=== PATIENT | female | born 1945 | race Caucasian/White ===

== ENCOUNTER 2016-10-12 16:22 | Outpatient (CLI) | payer MEDICARE, OTHER | END 2016-10-12 16:23 | disposition home or self-care (01) | DX: M50.31 Other cervical disc degeneration, high cervical region (principal); M47.892 Other spondylosis, cervical region; M50.222 Other cervical disc displacement at C5-C6 level; M51.34 Other intervertebral disc degeneration, thoracic region; M47.894 Other spondylosis, thoracic region ==

== ENCOUNTER 2016-12-15 08:00 | Outpatient (CLI) | payer MEDICARE, OTHER ==
[2016-12-16 07:44] LABS: HEMOGLOBIN A1C 0.92 g/dL
== END 2016-12-15 23:59 | disposition home or self-care (01) ==
LOC: LAB.R 08:00
PROVIDERS: ATTEND Internal Medicine
DX: E11.65 Type 2 diabetes mellitus with hyperglycemia (principal)
CPT/HCPCS: 83036

== ENCOUNTER 2017-02-23 16:07 | Emergency (ER) | payer MEDICARE, OTHER ==
[2017-02-23 17:16] LABS: EOSINOPHILS # (AUTO) 0.1 10^3/uL (0.0-0.7); EOSINOPHILS % (AUTO) 0.8 %; HCT - HEMATOCRIT 41.2 % (37.0-47.0); HGB - HEMOGLOBIN 13.5 g/dL (12.0-16.0); LYMPHOCYTES # (AUTO) 0.5 10^3/uL (1.5-3.5); MEAN CORPUSCULAR HEMOGLOBIN 29.3 pg (27.0-31.0); MEAN CORPUSCULAR HGB CONC 32.9 g/dL (32.0-36.0); MEAN PLATELET VOLUME 9.4 fL (7.9-10.8); MONOCYTES # (AUTO) 1.1 10^3/uL (0.0-1.0); MONOCYTES % (AUTO) 6.7 %; NEUTROPHILS # (AUTO) 14.9 10^3/uL (1.5-6.6); NEUTROPHILS % (AUTO) 89.5 %; RED BLOOD COUNT 4.63 10^6/uL (4.20-5.40); RED CELL DISTRIBUTION WIDTH 13.6 % (12.0-15.0); UNCORRECTED WHITE BLOOD COUNT 16.7 x10^3/uL; WHITE BLOOD COUNT 16.7 x10^3/uL (4.8-10.8)
[2017-02-23 17:28] LABS: BILIRUBIN,URINE NEGATIVE (NEGATIVE); PH,URINE 6.5 PH (5.0-7.5)
[2017-02-23 17:28] LABS: ALBUMIN/GLOBULIN RATIO 1.2 (1.0-2.2); BILIRUBIN,TOTAL 0.9 mg/dL (0.2-1.0); CALCIUM 9.5 mg/dL (8.5-10.3); POTASSIUM 4.3 mmol/L (3.5-5.0); TOTAL PROTEIN 7.2 g/dL (6.7-8.2)
[2017-02-23 17:32] LABS: UA w/ MICROSCOPIC CHARGE YES
[2017-02-23 17:36] LABS: UR CULTURE IF IND INDICATED; WBC,URINE >25 /HPF (0-5)
[2017-02-23] MEDS ORDERED: cefTRIAXone 1 GM VIAL IVP STA (18:32)
[2017-02-23] MEDS ORDERED: SODIUM CHLORIDE 0.9% 1,000 ML IV ONE (18:43)
--- NOTE | 2017-02-23 18:45 | ED Physician Documentation ---
History of Present Illness - Stated complaint Stated Complaint: FEMALE - Chief complaint Chief Complaint: Ext Problem - History obtained from History obtained from: Patient, Friend - History of Present Illness Timing: Today Pain level max: 4 Pain level now: 1 Improved by: nothing Worsened by: urination. - Additonal information Additional information: Patient is a 71-year-old female who presents to the emergency department with lower abdominal/pelvic pain for the past several days. States had a fever today. Was not feeling well. Attempted to see her PCP and was referred here. States also feeling "hip pain" but points to the lower abdomen. Review of Systems Ten Systems: 10 systems reviewed and negative Constitutional: reports: Fever (subjective) Ears: denies: Ear pain Nose: denies: Rhinorrhea / runny nose, Congestion Throat: denies: Sore throat Cardiac: denies: Chest pain / pressure Respiratory: denies: Cough GI: denies: Abdominal Pain, Nausea, Vomiting Skin: denies: Rash Musculoskeletal: denies: Neck pain, Back pain Neurologic: denies: Headache PD PAST MEDICAL HISTORY - Past Medical History Past Medical History: Yes Respiratory: CPAP use Neuro: Parkinson's Musculoskeletal: Osteoarthritis, Chronic back pain - Past Surgical History Ortho: Spine surgery - Present Medications Home Medications: Ambulatory Orders Medication Instructions Recorded Confirmed Aspirin 81 mg PO HS 05/09/13 06/16/16 Calcium [Calcio Onelia] 1,000 mg PO DAILY 05/09/13 06/16/16 Cholecalciferol (Vitamin D3) 2,000 unit PO DAILY 05/09/13 06/16/16 [Vitamin D-3] Duloxetine HCl [Cymbalta] 30 mg PO DAILY 05/09/13 06/16/16 Estradiol 1 mg PO DAILY 05/09/13 06/16/16 Insulin Glargine [Lantus Solostar] 44 units SUBCUT QDBREAKFAST 05/09/13 06/16/16 Medroxyprogesterone Acetate 2.5 mg PO DAILY 05/09/13 06/16/16 Multivitamin [Animal Chews] 1 each PO DAILY 05/09/13 06/16/16 [place] 3/Dha/Epa/Other Om3/D3 200 ml PO BID 05/09/13 06/16/16 [[place]-3 + Vitamin D3 Liquid] Pravastatin Sodium [Pravachol] 40 mg PO DAILY 05/09/13 06/16/16 Sitagliptin Phosphate [Januvia] 100 mg PO DAILY 05/09/13 06/16/16 Diclofenac Sodium [Voltaren] 100 gm TP DAILY 06/16/16 06/16/16 Meloxicam 7.5 mg PO DAILY 06/16/16 06/16/16 Sulfamethox/Trimeth 800/160 1 each PO BID #14 tablet 02/23/17 [Bactrim Ds 800/160] - Allergies Allergies/Adverse Reactions: Allergies Allergy/AdvReac Type Severity Reaction Status Date / Time No Known Drug Allergies Allergy Verified 02/23/17 16:32 - Social History Does the pt smoke?: No Smoking Status: Never smoker Does the pt drink ETOH?: No Does the pt have substance abuse?: No - Immunizations Immunizations are current?: Yes PD ED PE NORMAL - Vitals Vital signs reviewed: Yes - General General: Alert and oriented X 3, No acute distress, Well developed/nourished - HEENT HEENT: PERRL, Moist mucous membranes - Neck Neck: Supple, no meningeal sign - Cardiac Cardiac: RRR, Strong equal pulses - Respiratory Respiratory: No respiratory distress, Clear bilaterally - Abdomen Abdomen: Soft, Non distended, Other (Mild suprapubic tenderness palpation without peritoneal signs.) - Back Back: No CVA TTP, No spinal TTP - Derm Derm: Warm and dry, No rash - Extremities Extremities: No edema - Neuro Neuro: Alert and oriented X 3, No sensory deficit - Psych Psych: Normal mood, Normal affect Results - Vitals Vitals: Oxygen O2 Source Room air - Labs Labs: Microbiology 02/23/17 16:17 Urine Culture - Final Urine,Clean Catch Staphylococcus Epidermidis Laboratory Tests 02/23/17 02/23/17 02/23/17 16:17 17:09 17:09 WBC 16.7 H RBC 4.63 Hgb 13.5 Hct 41.2 MCV 89.0 MCH 29.3 MCHC 32.9 RDW 13.6 Plt Count 224 MPV 9.4 Neut # 14.9 H Lymph # 0.5 L [place] # 1.1 H Eos # 0.1 Baso # 0.0 Absolute Nucleated RBC 0.01 Nucleated RBCs 0.0 Sodium 135 Potassium 4.3 Chloride 104 Carbon Dioxide 23 Anion Gap 8.0 BUN 28 H Creatinine 1.0 Estimated GFR (MDRD) 54 L Glucose 243 H Lactic Acid Calcium 9.5 Total Bilirubin 0.9 AST 22 ALT 18 Alkaline Phosphatase 64 Total Protein 7.2 Albumin 3.9 Globulin 3.3 Albumin/Globulin Ratio 1.2 Lipase 29 Urine Color YELLOW Urine Clarity CLOUDY Urine pH 6.5 Ur Specific [place] 1.020 Urine Protein TRACE Urine Glucose (UA) NEGATIVE Urine Ketones NEGATIVE Urine Occult Blood SMALL H Urine Nitrite POSITIVE H Urine Bilirubin NEGATIVE Urine Urobilinogen 0.2 (NORMAL) Ur Leukocyte Esterase MODERATE H Urine RBC 6-10 H Urine WBC >25 H Ur Squamous Epith Cells NONE SEEN Urine Bacteria Few Ur Microscopic Review INDICATED Urine Culture Comments INDICATED 02/23/17 17:09 WBC RBC Hgb Hct MCV MCH MCHC RDW Plt Count MPV Neut # Lymph # [place] # Eos # Baso # Absolute Nucleated RBC Nucleated RBCs Sodium Potassium Chloride Carbon Dioxide Anion Gap BUN Creatinine Estimated GFR (MDRD) Glucose Lactic Acid 1.2 Calcium Total Bilirubin AST ALT Alkaline Phosphatase Total Protein Albumin Globulin Albumin/Globulin Ratio Lipase Urine Color Urine Clarity Urine pH Ur Specific [place] Urine Protein Urine Glucose (UA) Urine Ketones Urine Occult Blood Urine Nitrite Urine Bilirubin Urine Urobilinogen Ur Leukocyte Esterase Urine RBC Urine WBC Ur Squamous Epith Cells Urine Bacteria Ur Microscopic Review Urine Culture Comments PD MEDICAL DECISION MAKING - ED course Complexity details: reviewed results, re-evaluated patient, considered differential, d/w patient ED course: Patient is a 71-year-old female who presents to the emergency department with what appears to be a UTI. Afebrile here. Lactate normal. No evidence of sepsis. Given IV antibiotics and will place on oral antibiotics for home. Tolerating p.o. without difficulty. States that she feels very well. Feels better after IV fluids. Abdomen is soft, nontender nondistended on serial exam. No CVA tenderness. No vomiting. Patient counseled regarding signs and symptoms for which I believe and urgent re-evaluation would be necessary. Patient with good understanding of and agreement to plan and is comfortable going home at this time This document was made in part using voice recognition software. While efforts are made to proofread this document, sound alike and grammatical errors may occur. Departure - Departure Disposition: Home, Self Care Clinical Impression: UTI (urinary tract infection) Qualifiers: Urinary tract infection type: acute cystitis Hematuria presence: without hematuria Qualified Code(s): N30.00 - Acute cystitis without hematuria Condition: Good Instructions: ED UTI Cystitis Female Follow-Up: Homero Saavedra MD [Primary Care Provider] - Within 1 week Prescriptions: Sulfamethox/Trimeth 800/160 [Bactrim Ds 800/160] 1 each PO BID #14 tablet Comments: Take all antibiotics until gone. Return if you worsen. Discharge Date/Time: 02/23/17 20:17
[2017-02-23] MEDS ORDERED: cefTRIAXone 1 GM VIAL ONE (19:10)
[2017-02-23 20:20] VITALS: BP 102/53
== END 2017-02-23 20:17 | disposition home or self-care (01) ==
LOC: ED 16:07
DX: N30.00 Acute cystitis without hematuria (principal); G20 Parkinson's disease
CPT/HCPCS: 36415; 80053; 81001; 81003; 83605; 83690; 85025; 87077; 87086; 96374; 99283; 99284

== ENCOUNTER 2017-03-14 14:50 | Outpatient (CLI) | payer MEDICARE, OTHER | END 2017-03-14 14:51 | disposition home or self-care (01) | LOC: LAB.R 14:50 | PROVIDERS: ATTEND Internal Medicine | DX: N30.00 Acute cystitis without hematuria (principal) | CPT/HCPCS: 87086 ==

== ENCOUNTER 2017-03-15 22:39 | Emergency (ER) | payer MEDICARE, OTHER ==
[2017-03-15 22:48] VITALS: BP 188/99
[2017-03-15 23:02] LABS: BASOPHILS # (AUTO) 0.1 10^3/uL (0.0-0.1); EOSINOPHILS # (AUTO) 0.4 10^3/uL (0.0-0.7); EOSINOPHILS % (AUTO) 4.8 %; HCT - HEMATOCRIT 42.1 % (37.0-47.0); LYMPHOCYTES # (AUTO) 2.5 10^3/uL (1.5-3.5); LYMPHOCYTES % (AUTO) 34.6 %; MEAN CORPUSCULAR HEMOGLOBIN 29.4 pg (27.0-31.0); MEAN CORPUSCULAR HGB CONC 33.3 g/dL (32.0-36.0); MEAN CORPUSCULAR VOLUME 88.2 fL (81.0-99.0); MONOCYTES # (AUTO) 0.7 10^3/uL (0.0-1.0); MONOCYTES % (AUTO) 9.8 %; NEUTROPHILS # (AUTO) 3.7 10^3/uL (1.5-6.6); NEUTROPHILS % (AUTO) 49.8 %; RED BLOOD COUNT 4.77 10^6/uL (4.20-5.40); RED CELL DISTRIBUTION WIDTH 13.9 % (12.0-15.0); UNCORRECTED WHITE BLOOD COUNT 7.3 x10^3/uL; WHITE BLOOD COUNT 7.3 x10^3/uL (4.8-10.8)
[2017-03-15 23:11] LABS: ALBUMIN/GLOBULIN RATIO 1.3 (1.0-2.2); BILIRUBIN,TOTAL 0.2 mg/dL (0.2-1.0); CALCIUM 9.7 mg/dL (8.5-10.3); CREATININE 0.7 mg/dL (0.4-1.0); POTASSIUM 3.8 mmol/L (3.5-5.0); TOTAL PROTEIN 7.7 g/dL (6.7-8.2)
[2017-03-15 23:16] LABS: BILIRUBIN,URINE NEGATIVE (NEGATIVE)
[2017-03-15 23:43] LABS: UA w/ MICROSCOPIC CHARGE YES
[2017-03-15 23:44] LABS: UR CULTURE IF IND NOT INDICATED
--- NOTE | 2017-03-15 23:56 | ED Physician Documentation ---
PD HPI FEMALE - Stated complaint Stated Complaint: FEMALE - Chief complaint Chief Complaint: UTI - History obtained from History obtained from: Patient - History of Present Illness Timing - onset: Yesterday Timing - details: Gradual onset, Still present Associated symptoms: Vaginal pain, Dysuria. No: Fever, Chest/shoulder pain Similar symptoms before: Work up / diagnostics, Treatment Recently seen: Clinic - Additional information Additional information: Patient is a 71 year old female with a history of diabetes who is presenting to the emergency department for dysuria. Patient states that she was diagnosed with a staff uti in february. patient states that she has been on mulitple antibiotics but still has symptoms. Patient states that she saw her doctor on tuesday and sent a urine culture but is sure that she still has a urinary tract infection since it vargas when she urinates. Review of Systems Constitutional: denies: Fever, Chills Eyes: denies: Decreased vision, Photophobia Ears: reports: Reviewed and negative Nose: reports: Reviewed and negative Throat: reports: Reviewed and negative Cardiac: denies: Chest pain / pressure Respiratory: denies: Dyspnea, Cough GI: reports: Abdominal Pain. denies: Nausea, Vomiting, Constipation, Diarrhea : reports: Dysuria, Frequency, Hematuria. denies: Discharge, Vaginal bleeding Skin: denies: Rash, Lesions Musculoskeletal: denies: Back pain Neurologic: denies: Generalized weakness, Focal weakness, Confused, Altered mental status Immunocompromised: denies: Immunocompromised PD PAST MEDICAL HISTORY - Past Medical History Respiratory: CPAP use Neuro: Parkinson's Musculoskeletal: Osteoarthritis, Chronic back pain - Past Surgical History Ortho: Spine surgery - Present Medications Home Medications: Ambulatory Orders Medication Instructions Recorded Confirmed Aspirin 81 mg PO HS 05/09/13 06/16/16 Calcium [Calcio Onelia] 1,000 mg PO DAILY 05/09/13 06/16/16 Cholecalciferol (Vitamin D3) 2,000 unit PO DAILY 05/09/13 06/16/16 [Vitamin D-3] Duloxetine HCl [Cymbalta] 30 mg PO DAILY 05/09/13 06/16/16 Estradiol 1 mg PO DAILY 05/09/13 06/16/16 Insulin Glargine [Lantus Solostar] 44 units SUBCUT QDBREAKFAST 05/09/13 06/16/16 Medroxyprogesterone Acetate 2.5 mg PO DAILY 05/09/13 06/16/16 Multivitamin [Animal Chews] 1 each PO DAILY 05/09/13 06/16/16 [place] 3/Dha/Epa/Other Om3/D3 200 ml PO BID 05/09/13 06/16/16 [[place]-3 + Vitamin D3 Liquid] Pravastatin Sodium [Pravachol] 40 mg PO DAILY 05/09/13 06/16/16 Sitagliptin Phosphate [Januvia] 100 mg PO DAILY 05/09/13 06/16/16 Diclofenac Sodium [Voltaren] 100 gm TP DAILY 06/16/16 06/16/16 Meloxicam 7.5 mg PO DAILY 06/16/16 06/16/16 Sulfamethox/Trimeth 800/160 1 each PO BID #14 tablet 02/23/17 [Bactrim Ds 800/160] - Allergies Allergies/Adverse Reactions: Allergies Allergy/AdvReac Type Severity Reaction Status Date / Time No Known Drug Allergies Allergy Verified 03/15/17 22:48 - Social History Does the pt smoke?: No Smoking Status: Never smoker Does the pt drink ETOH?: No Does the pt have substance abuse?: No - Immunizations Immunizations are current?: Yes PD ED PE NORMAL - Vitals Vital signs reviewed: Yes - General General: Alert and oriented X 3, No acute distress - HEENT HEENT: Atraumatic, PERRL - Neck Neck: Supple, no meningeal sign - Cardiac Cardiac: RRR, No murmur - Respiratory Respiratory: No respiratory distress - Abdomen Abdomen: Soft, Non tender, Non distended - Female Female : Pt declined - Derm Derm: Normal color, Warm and dry, No rash - Extremities Extremities: No deformity - Neuro Neuro: Alert and oriented X 3, No motor deficit, No sensory deficit, Normal speech - Psych Psych: Normal mood Results - Vitals Vitals: Vital Signs - 24 hr 03/15/17 22:45 Temperature 36.3 C L Heart Rate 74 Respiratory 16 Rate Blood Pressure 188/99 H O2 Saturation 97 Oxygen O2 Source Room air - Labs Labs: Laboratory Tests 03/15/17 03/15/17 03/15/17 22:53 22:53 23:03 WBC 7.3 RBC 4.77 Hgb 14.0 Hct 42.1 MCV 88.2 MCH 29.4 MCHC 33.3 RDW 13.9 Plt Count 249 MPV 9.0 Neut # 3.7 Lymph # 2.5 [place] # 0.7 Eos # 0.4 Baso # 0.1 Absolute Nucleated RBC 0.00 Nucleated RBC % 0.0 Sodium 139 Potassium 3.8 Chloride 105 Carbon Dioxide 25 Anion Gap 9.0 BUN 21 H Creatinine 0.7 Estimated GFR (MDRD) 82 L Glucose 122 H Calcium 9.7 Total Bilirubin 0.2 AST 24 ALT 22 Alkaline Phosphatase 63 Total Protein 7.7 Albumin 4.3 Globulin 3.4 Albumin/Globulin Ratio 1.3 Lipase 36 Urine Color YELLOW Urine Clarity CLEAR Urine pH 6.0 Ur Specific [place] 1.025 Urine Protein NEGATIVE Urine Glucose (UA) NEGATIVE Urine Ketones NEGATIVE Urine Occult Blood MODERATE H Urine Nitrite NEGATIVE Urine Bilirubin NEGATIVE Urine Urobilinogen 0.2 (NORMAL) Ur Leukocyte Esterase NEGATIVE Urine RBC 11-25 H Urine WBC 4-5 Ur Squamous Epith Cells FEW Squamous Urine Bacteria None Seen Ur Microscopic Review INDICATED Urine Culture Comments NOT INDICATED PD MEDICAL DECISION MAKING - ED course Complexity details: reviewed old records, reviewed results, re-evaluated patient , considered differential, d/w patient ED course: Patient was seen and examined at bedside. Patient was well appearing. labs were drawn and urine was collected. Previous results were reviewed. the uti from february was staph epidermis (contaminate) but was susceptible to multiple medications that the patient had taken. patient's culture from tuesday showed no growth. patient's urinalysis showed no bacteria and labs were within normal limits. Patient refused a pelvic exam at this time and stated that she would follow up with her doctor. Patient required no further work up and was stable for discharge with outpatient follow up. Departure - Departure Disposition: 01 Home, Self Care Clinical Impression: Vaginitis Condition: Good Instructions: ED Vaginitis Atrophic Follow-Up: Homero Saavedra MD [Primary Care Provider] - As Needed Comments: Your diagnostics today were within normal limits. there was no sign of infection, and your culture from yesterday showed no growth. It is unlikely secondary to a urinary tract infection and could be caused by vaginitis. You should follow up with your doctor for further evaluation and care if your symptoms persist. You may return to the emergency department at any time for new, worsening or uncontrollable symptoms.
== END 2017-03-16 00:05 | disposition home or self-care (01) ==
LOC: ED 22:39
DX: N76.0 Acute vaginitis (principal); E11.9 Type 2 diabetes mellitus without complications; G20 Parkinson's disease; Z79.82 Long term (current) use of aspirin; Z79.4 Long term (current) use of insulin
CPT/HCPCS: 36415; 80053; 81001; 81003; 83690; 85025; 87086; 99283

== ENCOUNTER 2017-09-23 12:50 | Outpatient (CLI) | payer MEDICARE, OTHER ==
[2017-09-23 14:02] LABS: HB2 TOTAL 15.7 g/dL; HEMOGLOBIN A1C 0.83 g/dL
== END 2017-09-23 12:51 | disposition home or self-care (01) ==
LOC: LAB 12:50
PROVIDERS: ATTEND Internal Medicine
DX: E11.9 Type 2 diabetes mellitus without complications (principal)
CPT/HCPCS: 36415; 83036

== ENCOUNTER 2017-11-25 15:27 | Outpatient (CLI) | payer MEDICARE, OTHER ==
--- NOTE | 2017-11-25 17:53 | MRI Report ---
Procedure Date: 11/25/2017 Accession Number: [id number] / [id number] Procedure: MRI - Brain W/O CPT Code: FULL RESULT: EXAM: MRI BRAIN WITHOUT CONTRAST EXAM DATE: 11/25/2017 04:05 PM. CLINICAL HISTORY: 72-year-old female, right leg weakness COMPARISON: Carotid ultrasound 10/02/2009. TECHNIQUE: Multiplanar, multisequence T1-weighted and fluid-sensitive MR sequences of the brain were performed. Sequences optimized for routine evaluation. Other: None. IV Contrast: None. FINDINGS: Brain Volume: Normal for age. Parenchyma/Dura: No mass, acute infarct or hemorrhage. Scattered T2/FLAIR hyperintense periventricular, deep, and subcortical white matter lesions within cerebral hemispheres bilaterally. No parenchymal foci susceptibility artifact. Ventricles/Cisterns: No hydrocephalus. No abnormal extra-axial fluid collection or hemorrhage. Orbits: Symmetric and unremarkable. Sella [place]: The pituitary gland, cavernous sinuses, suprasellar cistern and optic chiasm are unremarkable. IAC: Symmetric and unremarkable. Vasculature: Normal signal flow void is seen in the major arterial structures at the skull base. Sinuses: No acute appearing sinus disease. Bones: No focal pathologic appearing marrow signal changes. Other: Mild likely degenerative pseudo-pannus arising from the atlantodental joint (series 301 image 12), mildly narrowing the craniocervical junction. IMPRESSION: 1. No MRI evidence of acute intracranial abnormality. Specifically, no evidence of acute or subacute infarct, acute intracranial hemorrhage, mass, midline shift, or hydrocephalus. 2. Scattered white matter T2/FLAIR hyperintensities, nonspecific, and can be seen with the entire gamut of white matter conditions, including migraine headaches and as sequela of chronic microangiopathy. [facility]
== END 2017-11-25 15:28 | disposition home or self-care (01) ==
LOC: DI 15:27
PROVIDERS: ATTEND Internal Medicine
DX: I63.9 Cerebral infarction, unspecified (principal)
CPT/HCPCS: 70551

== ENCOUNTER 2018-02-09 10:30 | Outpatient (CLI) | payer MEDICARE, OTHER | END 2018-02-09 10:31 | LOC: LAB.R 10:30 | PROVIDERS: ATTEND Internal Medicine | DX: Z01.818 Encounter for other preprocedural examination (principal); R29.898 Other symptoms and signs involving the musculoskeletal system | CPT/HCPCS: 87640 ==

== ENCOUNTER 2018-02-09 10:51 | Outpatient (CLI) | payer MEDICARE, OTHER ==
[2018-02-09 11:20] LABS: BASOPHILS % (AUTO) 0.5 %; EOSINOPHILS # (AUTO) 0.3 10^3/uL (0.0-0.7); EOSINOPHILS % (AUTO) 4.7 %; HGB - HEMOGLOBIN 14.5 g/dL (12.0-16.0); LYMPHOCYTES # (AUTO) 1.5 10^3/uL (1.5-3.5); LYMPHOCYTES % (AUTO) 23.4 %; MEAN CORPUSCULAR HEMOGLOBIN 30.5 pg (27.0-31.0); MEAN CORPUSCULAR HGB CONC 34.5 g/dL (32.0-36.0); MEAN CORPUSCULAR VOLUME 88.5 fL (81.0-99.0); MEAN PLATELET VOLUME 9.2 fL (7.9-10.8); MONOCYTES # (AUTO) 0.5 10^3/uL (0.0-1.0); MONOCYTES % (AUTO) 7.8 %; NEUTROPHILS # (AUTO) 4.1 10^3/uL (1.5-6.6); NEUTROPHILS % (AUTO) 63.6 %; PLT - PLATELET COUNT 218 10^3/uL (130-450); RED BLOOD COUNT 4.76 10^6/uL (4.20-5.40); RED CELL DISTRIBUTION WIDTH 13.3 % (12.0-15.0); WHITE BLOOD COUNT 6.4 x10^3/uL (4.8-10.8)
[2018-02-09 11:36] LABS: ALBUMIN 4.1 g/dL (3.2-5.5); ALBUMIN/GLOBULIN RATIO 1.4 (1.0-2.2); BILIRUBIN,TOTAL 0.8 mg/dL (0.2-1.0); CALCIUM 9.3 mg/dL (8.5-10.3); CREATININE 0.7 mg/dL (0.4-1.0); TOTAL PROTEIN 7.1 g/dL (6.7-8.2)
[2018-02-09 11:44] LABS: HB2 TOTAL 15.3 g/dL; HEMOGLOBIN A1C 0.92 g/dL; HEMOGLOBIN A1C % 7.7 % (4.6-6.2)
== END 2018-02-09 10:52 | disposition home or self-care (01) ==
LOC: LAB 10:51
PROVIDERS: ATTEND Internal Medicine
DX: Z01.818 Encounter for other preprocedural examination (principal); E11.9 Type 2 diabetes mellitus without complications
CPT/HCPCS: 36415; 80053; 83036; 85025

== ENCOUNTER 2018-03-02 10:57 | Outpatient (CLI) | payer MEDICARE, OTHER ==
--- NOTE | 2018-03-02 16:44 | XRAY Report ---
Reason: BACK PAIN Procedure Date: 03/02/2018 Accession Number: [id number] / [id number] Procedure: XR - Thoracic Spine 3 View CPT Code: FULL RESULT: EXAM: THORACIC SPINE RADIOGRAPHY EXAM DATE: 03/02/2018 11:10 AM. CLINICAL HISTORY: Back pain. COMPARISON: XR THORACIC SPINE 3 VIEWS 03/01/2007 4:52 PM. THORACIC SPINE W/O 10/12/2016 5:19 PM. XR CHEST PA AND LAT 08/01/2012 7:53 PM. TECHNIQUE: 2 views. FINDINGS: Alignment: Mild upper thoracic kyphosis due to interval mild, less than 25% height loss, anterior wedge compression around T8, new compared to 2006. No listhesis. Bones: No other fractures or bone lesions. Configuration of ribs is unchanged. Disks: Multilevel loss of disk space height is most pronounced at T6-T10. Soft Tissues: Normal. The visualized lungs and cardiomediastinal silhouette are normal. IMPRESSION: Mild anterior wedge compression fracture of T8, similar to the MRI 2016 and new compared to 2006. [facility]
== END 2018-03-02 10:58 | disposition home or self-care (01) ==
LOC: DI 10:57
PROVIDERS: ATTEND Internal Medicine
DX: M54.9 Dorsalgia, unspecified (principal); M48.54XA Collapsed vertebra, not elsewhere classified, thoracic region, initial encounter for fracture
CPT/HCPCS: 72072

== ENCOUNTER 2018-03-24 11:52 | Outpatient (CLI) | payer MEDICARE, OTHER | END 2018-03-24 11:53 | disposition home or self-care (01) | LOC: LAB 11:52 | PROVIDERS: ATTEND Internal Medicine | DX: E11.9 Type 2 diabetes mellitus without complications (principal) ==

== ENCOUNTER 2018-03-24 15:50 | Outpatient (CLI) | payer MEDICARE, OTHER ==
[2018-03-24 16:58] LABS: HB2 TOTAL 14.5 g/dL; HEMOGLOBIN A1C 0.89 g/dL; HEMOGLOBIN A1C % 7.8 % (4.6-6.2)
== END 2018-03-24 15:51 | disposition home or self-care (01) ==
LOC: LAB 15:50
PROVIDERS: ATTEND Internal Medicine
DX: E11.9 Type 2 diabetes mellitus without complications (principal)
CPT/HCPCS: 36415; 83036

== ENCOUNTER 2018-03-31 10:10 | Outpatient (CLI) | payer MEDICARE, OTHER ==
[2018-03-31 10:34] LABS: BASOPHILS # (AUTO) 0.1 10^3/uL (0.0-0.1); BASOPHILS % (AUTO) 1.1 %; EOSINOPHILS # (AUTO) 0.4 10^3/uL (0.0-0.7); EOSINOPHILS % (AUTO) 7.9 %; LYMPHOCYTES # (AUTO) 1.7 10^3/uL (1.5-3.5); LYMPHOCYTES % (AUTO) 32.5 %; MEAN CORPUSCULAR HEMOGLOBIN 30.8 pg (27.0-31.0); MEAN CORPUSCULAR HGB CONC 34.5 g/dL (32.0-36.0); MEAN CORPUSCULAR VOLUME 89.3 fL (81.0-99.0); MEAN PLATELET VOLUME 9.2 fL (7.9-10.8); MONOCYTES # (AUTO) 0.5 10^3/uL (0.0-1.0); MONOCYTES % (AUTO) 9.6 %; NEUTROPHILS # (AUTO) 2.5 10^3/uL (1.5-6.6); NEUTROPHILS % (AUTO) 48.9 %; PLT - PLATELET COUNT 202 10^3/uL (130-450); RED BLOOD COUNT 4.55 10^6/uL (4.20-5.40); RED CELL DISTRIBUTION WIDTH 13.9 % (12.0-15.0); WHITE BLOOD COUNT 5.1 x10^3/uL (4.8-10.8)
[2018-03-31 10:39] LABS: CALCIUM 9.5 mg/dL (8.5-10.3); CREATININE 0.6 mg/dL (0.4-1.0)
== END 2018-03-31 10:11 | disposition home or self-care (01) ==
LOC: LAB 10:10
PROVIDERS: ATTEND Internal Medicine
DX: Z01.818 Encounter for other preprocedural examination (principal)
CPT/HCPCS: 36415; 80048; 85025

== ENCOUNTER 2018-08-30 13:24 | Outpatient (CLI) | payer MEDICARE, OTHER ==
--- NOTE | 2018-08-31 11:08 | MRI Report ---
Reason: CHRONIC NILATERAL LOW BACK PAIN,TROCHANTERIC BURSI Procedure Date: 08/30/2018 Accession Number: [id number] / [id number] Procedure: MRI - Lumbar Spine W/O CPT Code: FULL RESULT: EXAM: MRI LUMBAR SPINE WITHOUT CONTRAST EXAM DATE: 08/30/2018 01:35 PM. CLINICAL HISTORY: Chronic bilateral low back pain, trochanteric bursitis. COMPARISON: L-SPINE 04/02/2008 10:55 AM. TECHNIQUE: Multiplanar, multisequence T1-weighted and fluid-sensitive sequences of the lumbar spine from T12 to S1 without contrast. Other: None. FINDINGS: Spinal Canal: The conus terminates at L1-L2. The conus medullaris and cauda equina are unremarkable. Alignment: There is a 5 mm grade 1 retrolisthesis at L3-L4. There is exaggeration of the lumbar lordosis at L3-L4. Bone Marrow: Five xqe-bby-czahnis lumbar vertebral bodies are assumed. L4 to S1 anterior fusion. L3 to S1 posterior fusion. The L4-S1 vertebral bodies have bony bridging consistent with successful fusion. Laminectomies from L3-L4 to L5-S1. Disk Levels/Facets: T12-L1: Unremarkable. L1-L2: Mild facet joint degeneration. Minimal canal and foraminal narrowing. L2-L3: There is a broad-based posterior disk bulge with moderate facet osteoarthritis causing mild canal and minimal foraminal narrowing. L3-L4: Mild canal narrowing. Mild left and right foraminal narrowing. L4-L5: L4-L5 vertebral bodies are fused. Mild bilateral foraminal narrowing. L5-S1: Fused vertebral bodies. Mild bilateral foraminal narrowing. The foramina are difficult to visualize due to artifact from the screws. Musculature: Normal. No edema or fatty atrophy. Other: Posterior seroma from L3-L4 to L5-S1. The seroma measures 3.3 x 6.1 x 1.8 cm. IMPRESSION: 1. Prior L3 to S1 posterior fusion with laminectomies from L3-L4 to L5-S1. Seroma from L3-L4 to L5-S1. 2. 5 mm retrolisthesis at L3-L4. 3. The spinal canal remains patent from L3-L4 to L5-S1 secondary to the laminectomies. The foramina are difficult to visualize due to the artifact from the fusion screws. There is mild foraminal narrowing at L3-L4. The L4-L5 and L5-S1 foramina appear patent. 4. Successful fusion of the vertebral bodies from L4 to S1. The L4-L5 anterolisthesis visible on the prior CT has been corrected. The disk is still visible at L3-L4. Comment: The following findings are so common in adults without low back pain that while we report their presence, they must be interpreted with caution and in the context of the clinical situation. (Reference Feliciak et al, Spine 2001) Prevalence of findings in patients without low back pain: Disk degeneration (any evidence): 92% Disk desiccation/T2 signal loss: 83% Disk height loss: 56% Disk bulge: 64% Disk protrusion: 32% Annular tear/high intensity zone: 38% [facility]
--- NOTE | 2018-08-31 11:29 | MRI Report ---
Reason: CHRONIC NILATERAL LOW BACK PAIN,TROCHANTERIC BURSI Procedure Date: 08/30/2018 Accession Number: [id number] / [id number] Procedure: MRI - Hip RT W/O CPT Code: FULL RESULT: EXAM: RIGHT HIP MRI WITHOUT CONTRAST EXAM DATE: 08/30/2018 03:02 PM. CLINICAL HISTORY: Chronic bilateral low back pain, trochanteric bursitis. COMPARISON: BONE 3-PHASE 07/11/2018 11:31 AM. TECHNIQUE: Multiplanar, multisequence T1-weighted and fluid-sensitive, small kiwzr-nc-vtqt sequences of the hip and large vfznc-il-hfuv sequences of the pelvis without contrast. Other: None. FINDINGS: Bones: There is artifact from the right hip prosthesis. Marrow signal intensity is difficult to gauge due to the artifact. There are no visible fractures or foci of abnormal marrow signal in the remainder of the bony pelvis. Right Hip: Right hip prosthesis. Marrow signal cannot be accurately ascertained due to the artifact. Other Joints: Moderate left hip osteoarthritis. Posterior fusion of the lumbar spine. Musculature: Fatty atrophy of the obturator and internus and externus. Remaining muscles appear unremarkable. Pelvic Cavity: Multiple uterine fibroids. The pelvic viscera partially obscured by artifact. The bladder appears grossly unremarkable. Other: The visualized sciatic nerves are unremarkable. Minimally increased fluid signal over the lateral aspect of the greater trochanter may indicate mild trochanteric bursitis. The subcutaneous tissues are unremarkable. IMPRESSION: 1. Possible mild right trochanteric bursitis. 2. Artifact from the right hip prosthesis obscures the periprosthetic bone. 3. There are multiple uterine fibroids. 4. Moderate left hip osteoarthritis 5. Fusion of the lumbar spine. [facility] MUSCULOSKELETAL RADIOLOGY SECTION
--- NOTE | 2018-08-31 11:42 | MRI Report ---
Reason: CHRONIC NILATERAL LOW BACK PAIN,TROCHANTERIC BURSI Procedure Date: 08/30/2018 Accession Number: [id number] / [id number] Procedure: MRI - Hip LT W/O CPT Code: FULL RESULT: EXAM: LEFT HIP MRI WITHOUT CONTRAST EXAM DATE: 08/30/2018 02:59 PM. CLINICAL HISTORY: Chronic bilateral low back pain and arthritis. Right hip prosthesis. COMPARISON: HIP RT W/O 08/30/2018 1:59 PM. TECHNIQUE: Multiplanar, multisequence T1-weighted and fluid-sensitive, small obfci-sz-tkvq sequences of the hip and large iaxnd-uw-prck sequences of the pelvis without contrast. Other: None. FINDINGS: Please see accompanying MRI of the right hip for comments regarding the soft tissues of the pelvis, musculature, right hip and lumbar spine. Prior lumbar spine fusion and right hip prosthesis. Left Hip: No acetabular retroversion. Femoral head/neck offset is within normal limits. Moderate size joint effusion. There is subchondral cyst formation in the anterosuperior acetabulum with adjacent hyaline cartilage thinning. Fluid signal tracks between the anterosuperior labrum and acetabulum consistent with a small anterosuperior labral tear. The remainder of the labrum appears unremarkable. The hyaline cartilage in the remainder of the left hip also appears slightly eroded. There is fluid signal overlying the lateral aspect of the greater trochanter consistent with trochanteric bursitis. IMPRESSION: 1. Left trochanteric bursitis. 2. Mild left hip osteoarthritis with a small anterosuperior labral tear. [facility] MUSCULOSKELETAL RADIOLOGY SECTION
== END 2018-08-30 13:25 | disposition home or self-care (01) ==
LOC: DI 13:24
PROVIDERS: ATTEND Orthopaedic Surgery Orthopaedic Surgery of the Spine
DX: M70.61 Trochanteric bursitis, right hip (principal); M70.62 Trochanteric bursitis, left hip; M16.12 Unilateral primary osteoarthritis, left hip; S73.192A Other sprain of left hip, initial encounter; M47.816 Spondylosis without myelopathy or radiculopathy, lumbar region; M48.061 Spinal stenosis, lumbar region without neurogenic claudication; Z98.1 Arthrodesis status; S76.019A Strain of muscle, fascia and tendon of unspecified hip, initial encounter; Z96.641 Presence of right artificial hip joint; D25.9 Leiomyoma of uterus, unspecified
CPT/HCPCS: 72148

== ENCOUNTER 2019-01-30 14:45 | Outpatient (CLI) | payer MEDICARE, OTHER ==
[2019-01-30 16:38] LABS: BILIRUBIN,URINE NEGATIVE (NEGATIVE); GLUCOSE, URINE (UA) 100 mg/dL (NEGATIVE); KETONES,URINE (UA) NEGATIVE (NEGATIVE); LEUKOCYTE ESTERASE, URINE NEGATIVE (NEGATIVE); NITRITE,URINE NEGATIVE (NEGATIVE); OCCULT BLOOD,URINE SMALL (NEGATIVE); PROTEIN,URINE TRACE mg/dL (NEGATIVE); UROBILINOGEN,URINE 0.2 (NORMAL) E.U./dL (NORMAL)
[2019-01-30 16:39] LABS: CLARITY,URINE HAZY (CLEAR)
[2019-01-30 16:51] LABS: BACTERIA,URINE None Seen /HPF (None Seen); SQUAMOUS EPITHELIAL CELL,UR FEW Squamous (<= Few)
== END 2019-01-30 23:59 | disposition home or self-care (01) ==
LOC: LAB.R 14:45
PROVIDERS: ATTEND Nurse Practitioner
DX: R30.0 Dysuria (principal)
CPT/HCPCS: 81001; 81003; 87086

== ENCOUNTER 2019-02-01 13:50 | Outpatient (CLI) | payer MEDICARE, OTHER ==
[2019-02-01 14:17] LABS: BILIRUBIN,URINE NEGATIVE (NEGATIVE); GLUCOSE, URINE (UA) NEGATIVE (NEGATIVE); KETONES,URINE (UA) TRACE mg/dL (NEGATIVE); LEUKOCYTE ESTERASE, URINE TRACE (NEGATIVE); NITRITE,URINE NEGATIVE (NEGATIVE); OCCULT BLOOD,URINE SMALL (NEGATIVE); PROTEIN,URINE TRACE mg/dL (NEGATIVE); UROBILINOGEN,URINE 0.2 (NORMAL) E.U./dL (NORMAL)
[2019-02-01 14:19] LABS: CLARITY,URINE CLEAR (CLEAR)
[2019-02-01 14:32] LABS: BACTERIA,URINE Rare /HPF (None Seen); BASOPHILS % (AUTO) 0.5 %; EOSINOPHILS # (AUTO) 0.3 10^3/uL (0.0-0.7); EOSINOPHILS % (AUTO) 3.5 %; HGB - HEMOGLOBIN 13.5 g/dL (12.0-16.0); LYMPHOCYTES # (AUTO) 1.7 10^3/uL (1.5-3.5); LYMPHOCYTES % (AUTO) 22.5 %; MEAN CORPUSCULAR HEMOGLOBIN 29.5 pg (27.0-31.0); MEAN CORPUSCULAR HGB CONC 32.8 g/dL (32.0-36.0); MEAN CORPUSCULAR VOLUME 89.9 fL (81.0-99.0); MEAN PLATELET VOLUME 11.3 fL (7.9-10.8); MONOCYTES # (AUTO) 0.7 10^3/uL (0.0-1.0); MONOCYTES % (AUTO) 8.7 %; NEUTROPHILS % (AUTO) 64.7 %; PLT - PLATELET COUNT 246 10^3/uL (130-450); RED BLOOD COUNT 4.57 10^6/uL (4.20-5.40); RED CELL DISTRIBUTION WIDTH 14.5 % (12.0-15.0); SQUAMOUS EPITHELIAL CELL,UR RARE Squamous (<= Few); WBC CLUMPS,URINE PRESENT; WHITE BLOOD COUNT 7.7 x10^3/uL (4.8-10.8)
[2019-02-01 14:38] LABS: ALBUMIN 3.9 g/dL (3.2-5.5); ALBUMIN/GLOBULIN RATIO 1.2 (1.0-2.2); BILIRUBIN,TOTAL 0.7 mg/dL (0.2-1.0); CALCIUM 9.3 mg/dL (8.5-10.3); CREATININE 1.3 mg/dL (0.4-1.0); TOTAL PROTEIN 7.2 g/dL (6.7-8.2)
[2019-02-01 14:46] LABS: HB2 TOTAL 13.7 g/dL; HEMOGLOBIN A1C 0.73 g/dL
== END 2019-02-01 13:51 | disposition home or self-care (01) ==
LOC: LAB 13:50
PROVIDERS: ATTEND Nurse Practitioner
DX: N20.0 Calculus of kidney (principal); E11.9 Type 2 diabetes mellitus without complications; R30.0 Dysuria
CPT/HCPCS: 36415; 80053; 81001; 81003; 83036; 85025; 87077; 87086; 87181

== ENCOUNTER 2019-02-12 10:15 | Outpatient (CLI) | payer MEDICARE, OTHER | END 2019-02-12 23:59 | disposition home or self-care (01) | LOC: LAB.R 10:15 | PROVIDERS: ATTEND Family Medicine | DX: N20.0 Calculus of kidney (principal); R30.0 Dysuria; M24.859 Other specific joint derangements of unspecified hip, not elsewhere classified | CPT/HCPCS: 87086 ==

== ENCOUNTER 2019-02-13 14:21 | Outpatient (CLI) | payer MEDICARE, OTHER ==
--- NOTE | 2019-02-13 16:32 | Ultrasound Report ---
Reason: RECURRENT KIDNEY STONES Procedure Date: 02/13/2019 Accession Number: [id number] / [id number] Procedure: US - Retroperitoneal CPT Code: FULL RESULT: EXAM: RENAL ULTRASOUND EXAM DATE: 02/13/2019 03:01 PM. CLINICAL HISTORY: RECURRENT KIDNEY STONES. COMPARISON: LUMBAR SPINE W/O 08/30/2018 1:35 PM PELVIS 07/03/2008 7:58 PM. TECHNIQUE: Real-time scanning was performed with static images obtained. FINDINGS: Right Kidney: 10 x 5.9 x 5.6 cm. Hydronephrosis with 1.1 x 0.9 cm stone lodged at the right ureterovesical junction. Additional 1 cm nonobstructing lower pole renal calculus. Left Kidney: 11.1 x 6 x 5.4 cm. Normal echotexture with no stones, contour-deforming masses, or hydronephrosis. Bladder: Bilateral jets seen. The prevoid bladder volume was 101 cc. The postvoid bladder volume was 15 cc. Other: Incidental finding of a 2.4 x 2.1 x 2.0 cm uterine fibroid. IMPRESSION: 1. Right hydronephrosis with a 1.1 x 0.9 cm stone lodged at the right ureterovesical junction. A second 1 cm nonobstructing lower pole right renal calculus is seen. 2. Negative left kidney. 3. Myomatous uterus. [facility]
== END 2019-02-13 14:22 | disposition home or self-care (01) ==
LOC: DI 14:21
PROVIDERS: ATTEND Family Medicine
DX: N13.2 Hydronephrosis with renal and ureteral calculous obstruction (principal); D25.9 Leiomyoma of uterus, unspecified
CPT/HCPCS: 76770

== ENCOUNTER 2019-06-04 16:55 | Outpatient (CLI) | payer MEDICARE, OTHER ==
[2019-06-04 17:58] LABS: HB2 TOTAL 14.1 g/dL; HEMOGLOBIN A1C 0.71 g/dL; HEMOGLOBIN A1C % 6.8 % (4.6-6.2)
== END 2019-06-04 16:56 | disposition home or self-care (01) ==
LOC: LAB 16:55
PROVIDERS: ATTEND Nurse Practitioner Family
DX: E11.9 Type 2 diabetes mellitus without complications (principal)
CPT/HCPCS: 36415; 83036

== ENCOUNTER 2019-12-10 12:08 | Emergency (ER) | payer MEDICARE, OTHER ==
[2019-12-10] MEDS ORDERED: predniSONE 20 MG TABLET PO STA (14:16)
[2019-12-10] MEDS ORDERED: HYDROmorphone 1 MG/ML CARPUJECT IM STA (14:16)
--- NOTE | 2019-12-10 14:19 | ED Physician Documentation ---
PD HPI BACK PAIN - Stated complaint Stated Complaint: BACK PX - Chief complaint Chief Complaint: Back Pain - History obtained from History obtained from: Patient - Additional information Additional information: 74-year-old woman with chronic back pain, has multilevel fusion the last done about 6 months ago. Subsequent to that it sounds like she had a thecal or dural leak was drained. That was about 2 weeks ago. The day prior to that she developed severe right flank pain. It is worse if she lifts her right leg. No weakness, numbness, tingling, saddle anesthesia, fevers, IV drug use. She does have a remote history of alcohol and drug use. She been taking oxycodone at home without relief. Review of Systems Constitutional: reports: Reviewed and negative Ears: reports: Reviewed and negative Nose: reports: Reviewed and negative Throat: reports: Reviewed and negative Cardiac: reports: Reviewed and negative PD PAST MEDICAL HISTORY - Past Medical History Past Medical History: Yes Respiratory: CPAP use Musculoskeletal: Osteoarthritis, Chronic back pain - Past Surgical History Past Surgical History: Yes Ortho: Spine surgery - Present Medications Home Medications: Ambulatory Orders Medication Instructions Recorded Confirmed Aspirin 81 mg PO HS 05/09/13 06/16/16 Calcium [Calcio Onelia] 1,000 mg PO DAILY 05/09/13 06/16/16 Cholecalciferol (Vitamin D3) 2,000 unit PO DAILY 05/09/13 06/16/16 [Vitamin D-3] Duloxetine HCl [Cymbalta] 30 mg PO DAILY 05/09/13 06/16/16 Insulin Glargine [Lantus Solostar] 44 units SUBCUT QDBREAKFAST 05/09/13 06/16/16 Medroxyprogesterone Acetate 2.5 mg PO DAILY 05/09/13 06/16/16 Multivitamin [Animal Chews] 1 each PO DAILY 05/09/13 06/16/16 [place] 3/Dha/Epa/Other Om3/D3 200 ml PO BID 05/09/13 06/16/16 [[place]-3 + Vitamin D3 Liquid] Pravastatin Sodium [Pravachol] 40 mg PO DAILY 05/09/13 06/16/16 Sitagliptin Phosphate [Januvia] 100 mg PO DAILY 05/09/13 06/16/16 estradioL [Estradiol] 1 mg PO DAILY 05/09/13 06/16/16 Diclofenac Sodium [Voltaren] 100 gm TP DAILY 06/16/16 06/16/16 Meloxicam 7.5 mg PO DAILY 06/16/16 06/16/16 Sulfamethox/Trimeth 800/160 1 each PO BID #14 tablet 02/23/17 [Bactrim Ds 800/160] predniSONE [Deltasone] 20 mg PO [id number] #21 tab 12/10/19 - Allergies Allergies/Adverse Reactions: Allergies Allergy/AdvReac Type Severity Reaction Status Date / Time No Known Drug Allergies Allergy Verified 12/10/19 12:13 - Social History Does the pt smoke?: No Smoking Status: Never smoker Does the pt drink ETOH?: No Does the pt have substance abuse?: No - Immunizations Immunizations are current?: Yes - POLST Patient has POLST: No PD ED PE NORMAL - Vitals Vital signs reviewed: Yes - General General: Alert and oriented X 3, Other (Slightly uncomfortable and laying in a left lateral decubitus position but not restless.) - Abdomen Abdomen: Normal bowel sounds, Soft, Non tender - Back Back: No CVA TTP, No spinal TTP - Extremities Extremities: Other (The patient has equal and normal Achilles and patellar reflexes bilaterally. Normal sensation in all areas of the legs. Patient denies saddle anesthesia. Normal strength in flexion-extension at the ankles, knees, and flexion of the hips.) - Neuro Neuro: Alert and oriented X 3, Normal speech Results - Vitals Vitals: Vital Signs - 24 hr 12/10/19 12:11 Temperature 36.4 C L Heart Rate 91 Respiratory 18 Rate Blood Pressure 153/64 H O2 Saturation 96 Oxygen O2 Source Room air PD MEDICAL DECISION MAKING - ED course ED course: 74-year-old woman with a complicated history of back issues presents with an exacerbation of same. Feeling almost pain-free after some IM Dilaudid and steroids. CT imaging done to rule out renal colic since she has a history of nephrolithiasis and the pain is over the right flank, this was negative for same but the incidental findings regarding the lung were discussed and stressed for follow-up with her. Departure - Departure Disposition: Home, Self Care Clinical Impression: Back pain Qualifiers: Back pain location: low back pain Chronicity: chronic Back pain laterality: right Sciatica presence: without sciatica Qualified Code(s): M54.5 - Low back pain; G89.29 - Other chronic pain Condition: Good Record reviewed to determine appropriate education?: Yes Instructions: ED Chronic Pain Management Prescriptions: predniSONE [Deltasone] 20 mg PO [id number] #21 tab Comments: As discussed, CT imaging today demonstrates no active kidney stones. You do have kidney stones within the kidneys which may bother you some day but does not seem to be relevant today. You do have some mild abnormal findings in the left lung. You can talk with your doctor about either a CT of your lungs or an x- ray and maybe a month. Return if you develop symptoms of cough, shortness of breath, or fever. Follow-up with your surgeon regarding your back for further evaluation and treatment.
--- NOTE | 2019-12-10 14:58 | CT Report ---
PROCEDURE: Abdomen/Pelvis WO INDICATIONS: flank pain TECHNIQUE: Noncontrast 5 mm thick sections acquired from the diaphragms to the symphysis. 5 mm coronal and sagi ttal reformats were then performed. For radiation dose reduction, the following was used: automated exposure control, adjustment of mA and/or kV according to patient size. COMPARISON: None. FINDINGS: Image quality: There is limited visualization of the abdomen and pelvis secondary to artifact from caity mbar fixation and hip arthroplasty. ABDOMEN: Lung bases: Partially visualized rounded opacity measuring 12 mm within the left lower lobe. No prior s are available for comparison. Heart size is normal. Solid organs: Liver and spleen are normal in size. Gallbladder is unremarkable Pancreas is normal in contours. No adrenal nodules. Kidneys are normal in size, without hydronephrosis. There are 5 re nal calculi identified within the right kidney, the largest in the inferior pole measuring 9 mm, Houn sfield units 849. The distal ureter on the right is not visualized in its entirety as it is partially obscured secondary to metallic streak artifact from right hip arthroplasty. Peritoneum and bowel: Unenhanced bowel loops demonstrate normal wall thickness and caliber. No free fluid or air. Nodes and vessels: No retroperitoneal or mesenteric adenopathy by size criteria. Aorta and inferior vena cava are normal in caliber. Miscellaneous: Fat-containing ventral hernia is present. 32 x 16 mm posterior left rectus muscle lipo ma is noted. PELVIS: Genitourinary: Bladder wall thickness is normal. Calcifications within the uterus are present most likely related to fibroids. Miscellaneous: No inguinal hernias or adenopathy. Bones: No suspicious bony lesions. No vertebral body compression fractures. IMPRESSION: 1. Right nonobstructing renal calculi. Distal right ureter is not entirely visualized secondary to ar tifact from hip arthroplasty. Nonobstructing calculus cannot be definitively excluded. No bladder ashlee culi. 2. Uterine fibroids. 3. Partially visualized left lower lobe opacity. No priors are available for comparison. This could r epresent an incompletely visualized nodule or vascular structure. As clinically indicated, CT chest i s recommended for further evaluation. Reviewed by: Jacinda Marks MD on 12/10/2019 2:57 PM PDT Approved by: Jacinda Marks MD on 12/10/2019 2:57 PM PDT Station ID: [id number]
[2019-12-10 15:31] VITALS: BP 169/79
== END 2019-12-10 15:31 | disposition home or self-care (01) ==
LOC: ED 12:08
DX: M54.5 Low back pain (principal); G89.29 Other chronic pain; Z98.1 Arthrodesis status; R91.8 Other nonspecific abnormal finding of lung field; N20.0 Calculus of kidney; D25.9 Leiomyoma of uterus, unspecified; Z79.82 Long term (current) use of aspirin
CPT/HCPCS: 74176; 96372; 99284; J1170; J7512

== ENCOUNTER 2019-12-28 11:29 | Emergency (ER) | payer MEDICARE, OTHER ==
[2019-12-28] MEDS ORDERED: BUPIVACAINE 0.5%-EPI 1:200000 PF 10 ML VIAL SUBQ STA (12:26)
--- NOTE | 2019-12-28 12:28 | ED Physician Documentation ---
PD HPI BACK PAIN - Stated complaint Stated Complaint: LOWER BACK PX - Chief complaint Chief Complaint: Back Pain - History obtained from History obtained from: Patient - Additional information Additional information: Woman with complicated spinal history, multilevel fusion presents with increased back pain. She was seen here a few weeks ago by me, no acute findings on a CT of the belly concerning for renal colic by history but not found on above exam. Had a finding of a left lung opacity of unclear chronicity and has been unable to obtain follow-up for that either. She was seen in the interim at [facility], she is being scheduled for a lidocaine injection I guess, also some other testing. 2 nights ago she lay down on a bench after being upright too much and now has severe low back pain that has "changed". She feels like something is broken in there. She denies weakness, numbness, tingling, saddle anesthesia, or incontinence more than normal. No fever Review of Systems Ten Systems: 10 systems reviewed and negative Constitutional: reports: Reviewed and negative Cardiac: reports: Reviewed and negative Respiratory: reports: Reviewed and negative PD PAST MEDICAL HISTORY - Past Medical History Respiratory: CPAP use Musculoskeletal: Osteoarthritis, Chronic back pain - Past Surgical History Past Surgical History: Yes Ortho: Spine surgery - Present Medications Home Medications: Ambulatory Orders Medication Instructions Recorded Confirmed Calcium [Calcio Onelia] 1,000 mg PO DAILY 05/09/13 06/16/16 Cholecalciferol (Vitamin D3) 2,000 unit PO DAILY 05/09/13 06/16/16 [Vitamin D-3] Insulin Glargine [Lantus Solostar] 44 units SUBCUT QDBREAKFAST 05/09/13 06/16/16 Medroxyprogesterone Acetate 2.5 mg PO DAILY 05/09/13 06/16/16 Multivitamin [Animal Chews] 1 each PO DAILY 05/09/13 06/16/16 [place] 3/Dha/Epa/Other Om3/D3 200 ml PO BID 05/09/13 06/16/16 [[place]-3 + Vitamin D3 Liquid] Pravastatin Sodium [Pravachol] 40 mg PO DAILY 05/09/13 06/16/16 Sitagliptin Phosphate [Januvia] 100 mg PO DAILY 05/09/13 06/16/16 estradioL [Estradiol] 1 mg PO DAILY 05/09/13 06/16/16 Diclofenac Sodium [Voltaren] 100 gm TP DAILY 06/16/16 06/16/16 Meloxicam 7.5 mg PO DAILY 06/16/16 06/16/16 Escitalopram [Lexapro] 12/28/19 HYDROmorphone [Dilaudid] 1 - 2 tab PO Q4H PRN #20 tablet 12/28/19 methocarbamoL [Robaxin] 750 mg PO Q6H PRN #20 tablet 12/28/19 - Allergies Allergies/Adverse Reactions: Allergies Allergy/AdvReac Type Severity Reaction Status Date / Time No Known Drug Allergies Allergy Verified 12/10/19 12:13 - Social History Does the pt smoke?: No Smoking Status: Never smoker Does the pt drink ETOH?: No Does the pt have substance abuse?: No - Immunizations Immunizations are current?: Yes - POLST Patient has POLST: No PD ED PE NORMAL - Vitals Vital signs reviewed: Yes - General General: Alert and oriented X 3, No acute distress - HEENT HEENT: PERRL, EOMI - Neck Neck: Supple, no meningeal sign, No bony TTP - Abdomen Abdomen: Normal bowel sounds, Soft, Non tender - Back Back: Other (Some tenderness around L4 with an extensive midline spinal incision that is well-healed.) - Extremities Extremities: Other (The patient has equal and normal Achilles and patellar reflexes bilaterally. Normal sensation in all areas of the legs. Patient denies saddle anesthesia. Normal strength in flexion-extension at the ankles, knees, and flexion of the hips.) Results - Vitals Vitals: Vital Signs - 24 hr 12/28/19 12/28/19 12/28/19 11:32 13:11 15:06 Temperature 37.2 C 36.4 C L Heart Rate 98 86 77 Respiratory 18 14 16 Rate Blood Pressure 149/80 H 127/51 L 124/66 O2 Saturation 97 99 98 Oxygen O2 Source Room air - Rads (name of study) CT of the chest without contrast Radiology: EMP read contemporaneously (9 mm left lower lung nodule, recommend repeat CT in 3 months, near complete bony fusion at several levels with sclerotic changes, degenerative disc disease, metastasis not excluded.) PD MEDICAL DECISION MAKING - ED course ED course: Trigger point injection was done with about 4 mL of 0.25% Marcaine. This gave her pain relief in her back but then the pain moved to the right hip. 74-year-old woman with chronic and worsening back pain. CT is without acute changes although the incidental finding noted in her chest from last visit was explored more thoroughly and the results from today's scan and need for follow- up were discussed with her. She requested that I call [facility] and speak with her surgeon, Dr. Gutierrez We were waiting for the surgeon to call back, but the patient became impatient and wanted to leave. Departure - Departure Disposition: 01 Home, Self Care Clinical Impression: Lung nodule Back pain Qualifiers: Back pain location: low back pain Chronicity: chronic Back pain laterality: midline Sciatica presence: without sciatica Qualified Code(s): M54.5 - Low back pain; G89.29 - Other chronic pain Instructions: ED Chronic Pain Management, ED Neck Back Pain General Prescriptions: HYDROmorphone [Dilaudid] 1 - 2 tab PO Q4H PRN #20 tablet PRN Reason: Pain methocarbamoL [Robaxin] 750 mg PO Q6H PRN #20 tablet PRN Reason: back pain Comments: You have a 9 mm left lower lobe nodule, this requires a repeat CT scan to assess for interval change in 3 months. Follow-up with the pain management clinic as you are already planning. Return for new or worsening symptoms. Do not drink or drive while taking narcotic pain medication. Note that many narcotic pain relievers also contain Tylenol/acetaminophen. Please ensure that your total dose of acetaminophen from all sources does not exceed 3 g (3000 mg) per day. You may get constipated while on this medication. Take a stool softener such as Colace twice a day while you are on it. Also add an [id number]-fyjegmt laxative such as senna or MiraLAX on any day that you do not have a bowel movement. If you received a narcotic pain medication or sedative while in the emergency department, do not drive for the next 24 hours.
[2019-12-28] MEDS ORDERED: BUPIVACAINE 0.5%-EPI 1:200000 PF 30 ML VIAL SUBQ STA (12:30)
[2019-12-28] MEDS ORDERED: BUPIVACAINE 0.25% PF 30 ML VIAL ONE (12:36)
--- NOTE | 2019-12-28 13:34 | CT Report ---
PROCEDURE: CHEST WO INDICATIONS: abn ct TECHNIQUE: Noncontrast 5 mm thick sections acquired from the pulmonary apices to the posterior costophrenic angl es. 7 mm thick coronal and sagittal MIP reformats were then acquired. For radiation dose reduction, the following was used: automated exposure control, adjustment of mA and/or kV according to patient size. COMPARISON: CT of abdomen and pelvis dated 12/10/2019 which showed 12 mm groundglass density nodule in left lung base. FINDINGS: Image quality: Excellent. Lungs and pleura: Biapical scarring is seen. Scattered scarring/atelectasis in posterior and lateral aspect of right upper and lower lobe and posterior aspect of left lower lobe are seen. Previously sydney cribed groundglass density nodule in central portion of left lower lobe is noted and measures 9 mm in size with ill-defined margin. No other pulmonary nodule or mass is identified. No pleural effusions or pneumothorax. Central and peripheral airways are patent and normal in caliber. Mediastinum: Heart size is normal. No pericardial effusion. No mediastinal adenopathy by size crit eria. Mild atherosclerotic calcifications are seen. Thoracic aorta and central pulmonary arteries ar e normal in size. Esophagus is normal in caliber. No hiatal hernia. Bones and chest wall: There is near complete bony fusion at T9-T10 level. Increased sclerotic changes are noted involving adjacent endplates at T4-5, T5-6, and T7-8 levels with near complete bony fusion at T6-7 level. Increased sclerosis involving visualized lower cervical spine at C6 and C7 levels are also seen. No other suspicious bony lesion is noted. Visualized bilateral ribs are intact. No verteb ral body compression fractures. No axillary or supraclavicular adenopathy by size criteria. The thy roid is normal in size. Abdomen: Visualized upper abdominal solid organs and bowel loops appear normal in the absence of con trast. IMPRESSION: 1. 9 mm groundglass density nodule with ill-defined margins involving central portion of left lower l obe. No other pulmonary nodule or mass is seen. Biapical scarring and scattered scarring/atelectasis in periphery of bilateral lung waldrop more prominent on the right side. No pleural effusion or pneumo thorax. Airway is patent. Based on Fleischner Society recommendation, a follow-up study of chest in 3 months is recommended. 2. No mediastinal or hilar lymphadenopathy. 3. Near complete bony fusion at T6-7 and T9-10 levels. Sclerotic adjacent endplate changes noted at T 4-5, T5-6 and T7-8 levels. Suggestion of sclerosis involving C6 and C7 vertebral bodies. Finding like ly represent changes related to degenerative disc disease, sclerotic bony metastasis cannot be entire ly excluded if there is a primary source of malignancy. Fleischner Society criteria for SUB-SOLID lung nodule followup. Solitary pure ground-glass nodules 5 mm or less No followup needed. >5 mm 3 mo follow-up CT to confirm persistence. Then annual CT for 3 years. Part-solid nodules 3 mo follow-up CT to confirm persistence. If persistent with solid component <5 mm, annual CT for at least 3 years. If solid component is 5 mm or more, biopsy or surgical resection . Consider PET-CT for lesions > 10 mm. Multiple sub-solid nodules Pure ground glass nodules 5 mm or less Followup CT at 2 and 4 years. Pure ground glass nodules >5 mm without dominant lesion. [address] to confirm persistenc e, then annual followup CT for at least 3 years. Dominant nodule(s) with part-solid or solid component. [address] to confirm persistence. If persistent, consider biopsy or surgical resection, amy if lesions have >5 mm solid component. Reviewed by: Yousif Sharpe MD on 12/28/2019 1:32 PM PDT Approved by: Yousif Sharpe MD on 12/28/2019 1:32 PM PDT Station ID: [id number]
--- NOTE | 2019-12-28 13:45 | CT Report ---
PROCEDURE: LUMBAR SPINE WO INDICATIONS: back injury TECHNIQUE: Noncontrast 3 mm thick sections acquired from the T12 level to the sacrum. Sagittal and coronal refo rmats were constructed. For radiation dose reduction, the following was used: automated exposure co ntrol, adjustment of mA and/or kV according to patient size. COMPARISON: CT of abdomen and pelvis dated 12/10/2019, MRI of lumbar spine dated 08/30/2018. FINDINGS: Image quality: Diagnostic. Beam hardening artifacts from lumbar fusion hardware are seen. Bones: Again noted is prior transpedicular fusion at L3-S1 levels with intervertebral spacer placemen t at L3-4, L4-5 and L5-S1 levels. Grade 1 retrolisthesis of L3 on L4 and grade 1 anterolisthesis of L 4 on L5 is again seen, unchanged from 2019 study. No acute vertebral body compression fractures. No suspicious lytic or blastic bony lesions. Central spinal caliber is of normal overall caliber. No p ars defects. T12-L1: Normal in appearance. L1-L2: Normal in appearance. L2-L3: Mild degenerative endplate changes and decreased intervertebral disc space is seen. Fragmen corrina appearance of anterior inferior corner of L2 vertebral body is again seen and not significantly c hanged in appearance from 2019 study. No significant disc bulge, canal stenosis or neural foraminal n arrowing. L3-L4: Significant beam hardening artifacts are noted. No significant canal stenosis or neural fora colleen narrowing is seen. L4-L5: Postlaminectomy changes are noted. Bilateral facet arthrosis is seen. No significant canal s tenosis. Mild bilateral neural foraminal narrowing is seen. L5-S1: Postlaminectomy changes are noted. There is bilateral facet arthrosis. No significant centra l canal stenosis or neural foraminal narrowing. Soft tissues: No retroperitoneal masses or hematomas. Visualized aorta is normal in caliber. IMPRESSION: 1. Post laminectomy and fusion changes at L3-S1 levels. Significant beam hardening artifacts are note d. No gross hardware loosening or failure. 2. Stable appearing spondylolisthesis at L3-4 and L4-5 levels as above. No acute compression fracture . 3. Degenerative endplate changes and bilateral facet arthrosis at L2-3 level, no significant canal st enosis or neural foraminal narrowing. 4. Bilateral facet arthrosis is seen at L3-4 through L5-S1 levels. Mild bilateral neural foraminal na rrowing is seen at L4-5 level. Reviewed by: Yousif Sharpe MD on 12/28/2019 1:44 PM PDT Approved by: Yousif Sharpe MD on 12/28/2019 1:44 PM PDT Station ID: [id number]
[2019-12-28] MEDS ORDERED: HYDROmorphone 1 MG/ML CARPUJECT IM STA (14:21)
[2019-12-28 15:07] VITALS: BP 124/66
== END 2019-12-28 16:13 | disposition home or self-care (01) ==
LOC: ED 11:29
DX: M54.5 Low back pain (principal); G89.29 Other chronic pain; R91.1 Solitary pulmonary nodule; Z98.1 Arthrodesis status
CPT/HCPCS: 20552; 71250; 72131; 96372; 99284; J1170

== ENCOUNTER 2020-01-15 11:46 | Outpatient (CLI) | payer MEDICARE, OTHER | END 2020-01-15 11:47 | disposition critical access hospital (66) | LOC: EMS 11:46 | PROVIDERS: ATTEND Surgery | DX: M25.551 Pain in right hip (principal) | CPT/HCPCS: A0425; A0429 ==

== ENCOUNTER 2020-04-02 15:18 | Outpatient (CLI) | payer MEDICARE, OTHER ==
--- NOTE | 2020-04-02 16:36 | CT Report ---
PROCEDURE: CHEST WO INDICATIONS: PULMONARY NODULE, 3 MON F/U TECHNIQUE: Noncontrast 5 mm thick sections acquired from the pulmonary apices to the posterior costophrenic angl es. 7 mm thick coronal and sagittal MIP reformats were then acquired. For radiation dose reduction, the following was used: automated exposure control, adjustment of mA and/or kV according to patient size. COMPARISON: FINDINGS: Image quality: Excellent. Lungs and pleura: No acute air space opacities. No pleural effusions or pneumothorax. Central and peripheral airways are patent and normal in caliber. The "sub-solid" 8mm nodule at the medial left l ower lobe seen on CT series 4 image Mediastinum: Heart size is normal. No pericardial effusion. No mediastinal adenopathy by size crit eria. Thoracic aorta and central pulmonary arteries are normal in size. Esophagus is normal in jaziel chris. No hiatal hernia. Bones and chest wall: No suspicious bony lesions. No vertebral body compression fractures. No axil arsh or supraclavicular adenopathy by size criteria. The thyroid is normal in size. Abdomen: Visualized upper abdominal solid organs and bowel loops appear normal in the absence of con trast. IMPRESSION: Stable appearing 3 month follow-up of a initially identified 8 mm subsolid pulmonary nodule within th e left lower lobe. Given stability of appearance over time follow-up now is recommended by the Fleisc hner Society guidelines to be a one year, 2 year, and 3 year noncontrast low-dose CT scan from now. T his structure may represent a low-grade pulmonary neoplasm and therefore sequential follow-up is defi nitely recommended. Reviewed by: Hasmukh Stevens MD on 04/02/2020 4:35 PM PDT Approved by: Hasmukh Stevens MD on 04/02/2020 4:35 PM PDT Station ID: [id number]
== END 2020-04-02 15:19 | disposition home or self-care (01) ==
LOC: DI 15:18
PROVIDERS: ATTEND Family Medicine
DX: R91.1 Solitary pulmonary nodule (principal)
CPT/HCPCS: 71250

== ENCOUNTER 2020-04-08 11:26 | Outpatient (CLI) | payer MEDICARE, OTHER | END 2020-04-08 11:27 | disposition home or self-care (01) | LOC: LAB 11:26 | PROVIDERS: ATTEND Family Medicine | DX: Z53.9 Procedure and treatment not carried out, unspecified reason (principal) | CPT/HCPCS: 36415; 80053; 80061; 83036; 83721; 84443; 85025 ==

== ENCOUNTER 2020-04-09 09:49 | Outpatient (CLI) | payer MEDICARE, OTHER ==
[2020-04-09 10:02] LABS: BASOPHILS # (AUTO) 0.1 10^3/uL (0.0-0.1); BASOPHILS % (AUTO) 0.9 %; EOSINOPHILS # (AUTO) 0.3 10^3/uL (0.0-0.7); EOSINOPHILS % (AUTO) 4.7 %; HGB - HEMOGLOBIN 14.4 g/dL (12.0-16.0); LYMPHOCYTES % (AUTO) 43.1 %; MEAN CORPUSCULAR HEMOGLOBIN 30.4 pg (27.0-31.0); MEAN CORPUSCULAR HGB CONC 33.1 g/dL (32.0-36.0); MEAN CORPUSCULAR VOLUME 91.8 fL (81.0-99.0); MEAN PLATELET VOLUME 10.6 fL (7.9-10.8); MONOCYTES # (AUTO) 0.5 10^3/uL (0.0-1.0); MONOCYTES % (AUTO) 7.2 %; NEUTROPHILS # (AUTO) 3.1 10^3/uL (1.5-6.6); NEUTROPHILS % (AUTO) 43.8 %; PLT - PLATELET COUNT 267 10^3/uL (130-450); RED BLOOD COUNT 4.74 10^6/uL (4.20-5.40); RED CELL DISTRIBUTION WIDTH 13.9 % (12.0-15.0)
[2020-04-09 10:21] LABS: ALBUMIN 3.9 g/dL (3.2-5.5); ALBUMIN/GLOBULIN RATIO 1.3 (1.0-2.2); ALKALINE PHOSPHATASE 52 IU/L (42-121); ALT ALANINE AMINOTRANSFERASE 24 IU/L (10-60); AST ASPARTATE AMINOTRANSFERASE 23 IU/L (10-42); BILIRUBIN,TOTAL 0.9 mg/dL (0.2-1.0); BUN - BLOOD UREA NITROGEN 16 mg/dL (6-20); CALCIUM 9.5 mg/dL (8.5-10.3); CARBON DIOXIDE - CO2 25 mmol/L (21-32); CHLORIDE 105 mmol/L (101-111); CHOL/HDL RATIO 3.2 (<4.4); CHOLESTEROL 220 mg/dL; CREATININE 0.7 mg/dL (0.4-1.0); GLUCOSE 152 mg/dL (70-100); HDL CHOLESTEROL 68 mg/dL; LDL CHOLESTEROL,CALCULATED 125 mg/dL; LDL/HDL RATIO 1.8 (<4.4); SODIUM 141 mmol/L (135-145); TOTAL PROTEIN 6.8 g/dL (6.7-8.2); VLDL CHOLESTEROL 27 mg/dL
[2020-04-09 12:18] LABS: HEMOGLOBIN A1c% 6.8 % (4.27-6.07)
== END 2020-04-09 09:50 | disposition home or self-care (01) ==
LOC: LAB 09:49
PROVIDERS: ATTEND Family Medicine
DX: E78.5 Hyperlipidemia, unspecified (principal); E11.9 Type 2 diabetes mellitus without complications; F31.81 Bipolar II disorder
CPT/HCPCS: 36415; 80053; 80061; 83036; 83721; 84443; 85025

== ENCOUNTER 2020-06-27 08:00 | Outpatient (CLI) | payer MEDICARE, OTHER ==
[2020-06-27 16:12] LABS: CALCIUM 9.9 mg/dL (8.5-10.3); CREATININE 0.7 mg/dL (0.4-1.0)
[2020-06-27 18:26] LABS: HEMOGLOBIN A1c% 6.8 % (4.27-6.07)
== END 2020-06-27 23:59 | disposition home or self-care (01) ==
LOC: LAB 08:00
PROVIDERS: ATTEND Family Medicine
DX: E11.40 Type 2 diabetes mellitus with diabetic neuropathy, unspecified (principal); M53.3 Sacrococcygeal disorders, not elsewhere classified
CPT/HCPCS: 36415; 80048; 83036

== ENCOUNTER 2020-07-14 11:14 | Outpatient (CLI) | payer MEDICARE, OTHER | END 2020-07-14 11:15 | disposition critical access hospital (66) | LOC: EMS 11:14 | DX: M54.5 Low back pain (principal) | CPT/HCPCS: A0425; A0429 ==

== ENCOUNTER 2020-07-14 11:24 | Emergency (ER) | payer MEDICARE, OTHER ==
[2020-07-14] MEDS ORDERED: HYDROmorphone 1 MG/ML CARPUJECT IM STA ×2 (12:14→13:37)
[2020-07-14] MEDS ORDERED: DEXAMETHASONE 10 MG/ML VIAL IM STA (12:14)
[2020-07-14] MEDS ORDERED: diazePAM INJ 5 MG/ML SYRINGE IM STA (12:15)
[2020-07-14] MEDS ORDERED: KETOROLAC 60 MG/2 ML VIAL IM STA (12:15)
--- NOTE | 2020-07-14 12:17 | ED Physician Documentation ---
PD HPI BACK PAIN - Stated complaint Stated Complaint: BACK PX - Chief complaint Chief Complaint: Back Pain - History obtained from History obtained from: Patient - History of Present Illness Timing - onset: Chronic Timing - duration: Years Pain level max: 10 Pain level now: 10 Location: Lower, Right Quality: Pain, Spasm, Similar to prior episodes Associated symptoms: No: Fever, Weakness, Numbness, Incontinent of urine, Unable to urinate, Hematuria, Incontinent of stool Improves with: Rest Worsened by: Movement Contributing factors: No: Lifting, Twisting, Trauma, Anticoagulated, Cancer, IVDA, Out of meds Similar symptoms before: Diagnosis (Chronic back pain) Recently seen: Clinic - Additional information Additional information: Patient is a 75-year-old female who presents to the emerge for chronic back pain. This been ongoing for years. She states worse over the past 2 weeks. She states most of the pain is in her "SI joint". She states this is on the right side. Pain and spasm. She states that she is unable to have her MRI and nuclear bone scan here because she cannot lay flat. She is however laying flat in bed currently. She states that she needs to be transferred to [facility] so that anesthesia can perform her MRI and bone scan. She does not have an appointment for this. She states her doctor has been trying to get a hold of [facility] for 2 weeks, states that she "cannot take it anymore". No loss of bowel or bladder control. No trauma. No fevers. No chills. No IV drug use. She is on meloxicam, oxycodone and Robaxin at home Review of Systems Constitutional: denies: Fever, Chills Ears: denies: Ear pain Nose: denies: Rhinorrhea / runny nose, Congestion Throat: denies: Sore throat Cardiac: denies: Chest pain / pressure Respiratory: denies: Cough GI: denies: Nausea, Vomiting, Diarrhea : denies: Dysuria Skin: denies: Rash Musculoskeletal: denies: Neck pain Neurologic: denies: Focal weakness, Numbness, Seizure, Confused, Head injury, LOC PD PAST MEDICAL HISTORY - Past Medical History Respiratory: CPAP use Musculoskeletal: Osteoarthritis, Chronic back pain Other Past Medical History: right hip replacement and revision. - Past Surgical History Past Surgical History: Yes Ortho: Spine surgery - Present Medications Home Medications: Ambulatory Orders Medication Instructions Recorded Confirmed Calcium [Calcio Onelia] 500 mg PO DAILY 05/09/13 07/14/20 Cholecalciferol (Vitamin D3) 200 unit PO DAILY 05/09/13 07/14/20 [Vitamin D-3] Insulin Glargine [Lantus Solostar] 44 units SUBCUT QDBREAKFAST 05/09/13 07/14/20 Medroxyprogesterone Acetate 2.5 mg PO DAILY 05/09/13 07/14/20 Multivitamin [Animal Chews] 2 each PO DAILY 05/09/13 07/14/20 Pritchett 3/Dha/Epa/Other Om3/D3 200 ml PO BID 05/09/13 07/14/20 [Pritchett-3 + Vitamin D3 Liquid] Pravastatin Sodium [Pravachol] 40 mg PO DAILY 05/09/13 07/14/20 Sitagliptin Phosphate [Januvia] 500 mg PO DAILY 05/09/13 07/14/20 estradioL [Estradiol] 1 mg PO DAILY 05/09/13 07/14/20 Meloxicam 15 mg PO DAILY 06/16/16 07/14/20 methocarbamoL [Robaxin] 750 mg PO Q6H PRN #20 tablet 12/28/19 07/14/20 Ashwagandha Root Extract 5,200 mg PO DAILY 07/14/20 07/14/20 HYDROmorphone [Dilaudid] 2 mg PO Q4H PRN #14 tab 07/14/20 Lubiprostone [Amitiza] 8 mg PO DAILY 07/14/20 07/14/20 Metaxalone [Skelaxin] 800 mg PO Q8H PRN #14 07/14/20 Methylprednisolone [Medrol] 4 mg PO DAILY #1 07/14/20 SITagliptin [Januvia] 500 mg PO DAILY 07/14/20 07/14/20 Zolpidem [Ambien] 1 tab PO DAILY 07/14/20 07/14/20 oxyCODONE [Roxicodone] 15 mg PO QID 07/14/20 07/14/20 - Allergies Allergies/Adverse Reactions: Allergies Allergy/AdvReac Type Severity Reaction Status Date / Time No Known Drug Allergies Allergy Verified 07/14/20 11:34 - Social History Does the pt smoke?: No Smoking Status: Former smoker Does the pt drink ETOH?: No Does the pt have substance abuse?: No - Immunizations Immunizations are current?: Yes - POLST Patient has POLST: No PD ED PE NORMAL - Vitals Vital signs reviewed: Yes - General General: Alert and oriented X 3, No acute distress, Well developed/nourished - HEENT HEENT: PERRL, Moist mucous membranes - Neck Neck: Supple, no meningeal sign - Cardiac Cardiac: RRR, Strong equal pulses - Respiratory Respiratory: No respiratory distress, Clear bilaterally - Abdomen Abdomen: Soft, Non tender, Non distended - Back Back: Other (No midline tenderness to palpation or percussion. No step-off or deformity. She is tender to palpation over the right SI joint. Reproduces her pain.) - Derm Derm: Warm and dry - Extremities Extremities: Other (Normal bilateral lower extremity patellar and ankle jerk reflexes. Normal great toe extension bilaterally. no saddle anesthesia) - Neuro Neuro: Alert and oriented X 3, foreign legal consultant 2-12 intact, No motor deficit, No sensory deficit, Normal speech - Psych Psych: Normal mood, Normal affect Results - Vitals Vitals: Vital Signs - 24 hr 07/14/20 07/14/20 07/14/20 11:30 11:42 13:55 Temperature 36.5 C 36.7 C Heart Rate 86 77 67 Respiratory 16 16 18 Rate Blood Pressure 167/80 H 185/78 H 144/60 H O2 Saturation 95 98 98 Oxygen O2 Source Room air PD MEDICAL DECISION MAKING - ED course Complexity details: reviewed old records, reviewed results, re-evaluated patient, considered differential (No cauda equina, no spinal epidural abscess, no fracture, no aortic dissection or evidence of aneursym rupture), d/w patient, d/w [employer] consultant ED course: 75-year-old female presents to the emergency department with chronic back pain. Discussed the case with her primary care provider, Dr. Pandey, he is concerned that she states she is bedbound and unable to ambulate. The patient however walked into the emergency department unassisted. She is lying flat in the bed. She does not appear to be in distress until someone enters the room. This was confirmed with the nurse walking by the room several times as well. When I walked into the room to update her regarding her review, she said she felt better, when I told her that she was not going to be transferred to [facility] she stated that she was having increased pain and that she was not feeling any better. She started to grab at her leg. Patient has no acute neurological deficits. No evidence of cauda equina. I did discuss the case with [facility], no indication for emergent transfer. Recommend that the patient uses a walker at home. We will try adjusting her medications. She states that she used street drugs for many years of her life, declined to the Valium because she was concerned about addiction. She is not concerned however about opiate addiction. Recommend that she follow-up with her primary care for further care. Patient is well-dressed, well-groomed. Patient counseled regarding signs and symptoms for which I believe and urgent re-evaluation would be necessary. I also offered to have social work speak to the patient regarding a correction as she feels that she cannot care for herself at home. Patient adamantly refuses this. Also discussed that they could discuss with her caregivers for her in the house that she feels like she cannot care for herself. Patient adamantly refuses this as well. This document was made in part using voice recognition software. While efforts are made to proofread this document, sound alike and grammatical errors may occur. Departure - Departure Disposition: 01 Home, Self Care Clinical Impression: Sacroiliitis Condition: Good Instructions: ED Sacroiliitis Follow-Up: Ranulfo Rivera MD [Primary Care Provider] - Within 1 week Prescriptions: HYDROmorphone [Dilaudid] 2 mg PO Q4H PRN #14 tab PRN Reason: back pain Methylprednisolone [Medrol] 4 mg PO DAILY #1 Metaxalone [Skelaxin] 800 mg PO Q8H PRN #14 PRN Reason: muscle spasm Comments: Use the medications as prescribed. Use the walker to help take pressure off of your hip. Follow-up with Dr. Rivera for further care. Do not drink alcohol or drive while on narcotic pain medicine. Note that many narcotic pain relievers also contain tylenol/acetaminophen. Please ensure that your total dose of acetaminophen from all sources does not exceed 3 grams (3000mg) per day. You may constipated on this medication, take a stool softener such as "Colace" twice a day while you are on it. Also recommend a gzfk-sfy-subcnsn laxative such as senna or MiraLAX any day that you do not have a bowel movement. If you received narcotic pain medication in the emergency department, do not drive or operate machinery for the next 24 hours.
[2020-07-14 14:30] VITALS: BP 177/67
== END 2020-07-14 14:52 | disposition home or self-care (01) ==
LOC: EDUNIT# → ED 11:24
DX: M46.1 Sacroiliitis, not elsewhere classified (principal); Z96.641 Presence of right artificial hip joint; Z87.891 Personal history of nicotine dependence
CPT/HCPCS: 96372; 99284; J1170

== ENCOUNTER 2020-08-05 17:03 | Outpatient (CLI) | payer MEDICARE, OTHER | END 2020-08-05 17:04 | disposition home or self-care (01) | LOC: COV 17:03 | PROVIDERS: ATTEND Physical Medicine & Rehabilitation | DX: Z01.812 Encounter for preprocedural laboratory examination (principal); Z20.822 Contact with and (suspected) exposure to COVID-19 ==

== ENCOUNTER 2020-10-13 08:00 | Outpatient (CLI) | payer MEDICARE, OTHER | END 2020-10-13 23:59 | disposition home or self-care (01) | LOC: LAB.WCP 08:00 | PROVIDERS: ATTEND Internal Medicine | DX: N39.0 Urinary tract infection, site not specified (principal) | CPT/HCPCS: 87086 ==

== ENCOUNTER 2020-10-13 16:20 | Outpatient (CLI) | payer MEDICARE, OTHER ==
--- NOTE | 2020-10-14 09:56 | XRAY Report ---
PROCEDURE: Lumbar Spine Complete INDICATIONS: FUSION OF LUMBAR SPINE TECHNIQUE: 4 views of the lumbar spine were acquired. COMPARISON: CT of lumbar spine dated 11/28/2019. FINDINGS: Bones: 5 [id number] vertebrae are present. Extensive fusion of lumbar spine from L2 through S1 levels are seen with intervertebral spacer noted at L3-4 through L5-S1 levels. No gross hardware loos ening or failure is seen. There is grade 1 retrolisthesis of L2 on L3 and L3 on L4 and grade 1 collins listhesis of L4 on L5. No vertebral body compression fractures. Significant degenerative endplate ally nges are noted at L2-3 level. No suspicious bony lesions. Soft tissues: Overlying bowel gas pattern is normal. No suspicious soft tissue calcifications. IMPRESSION: Extensive fusion of lumbar spine from L2 through S1 levels with grade 1 spondylolisthesi s at L2-3 through L4-5 levels as above. No acute compression fracture. No gross hardware complication . Reviewed by: Yousif Sharpe MD on 10/14/2020 9:55 AM PDT Approved by: Yousif Sharpe MD on 10/14/2020 9:55 AM PDT Station ID: [id number]
== END 2020-10-13 16:21 | disposition home or self-care (01) ==
LOC: DI.N 16:20
PROVIDERS: ATTEND Internal Medicine
DX: M43.16 Spondylolisthesis, lumbar region (principal); M43.26 Fusion of spine, lumbar region; M47.816 Spondylosis without myelopathy or radiculopathy, lumbar region; Z98.1 Arthrodesis status; N39.0 Urinary tract infection, site not specified
CPT/HCPCS: 87086

== ENCOUNTER 2020-10-14 14:16 | Outpatient (CLI) | payer MEDICARE, OTHER ==
[2020-10-14 14:36] LABS: BASOPHILS # (AUTO) 0.1 10^3/uL (0.0-0.1); BASOPHILS % (AUTO) 0.9 %; EOSINOPHILS # (AUTO) 0.3 10^3/uL (0.0-0.7); EOSINOPHILS % (AUTO) 4.4 %; HCT - HEMATOCRIT 41.6 % (37.0-47.0); HGB - HEMOGLOBIN 13.9 g/dL (12.0-16.0); LYMPHOCYTES # (AUTO) 1.9 10^3/uL (1.5-3.5); LYMPHOCYTES % (AUTO) 29.2 %; MEAN CORPUSCULAR HEMOGLOBIN 29.7 pg (27.0-31.0); MEAN CORPUSCULAR HGB CONC 33.4 g/dL (32.0-36.0); MEAN CORPUSCULAR VOLUME 88.9 fL (81.0-99.0); MEAN PLATELET VOLUME 10.4 fL (7.9-10.8); MONOCYTES # (AUTO) 0.5 10^3/uL (0.0-1.0); MONOCYTES % (AUTO) 7.4 %; NEUTROPHILS # (AUTO) 3.8 10^3/uL (1.5-6.6); NEUTROPHILS % (AUTO) 57.9 %; PLT - PLATELET COUNT 281 10^3/uL (130-450); RED BLOOD COUNT 4.68 10^6/uL (4.20-5.40); RED CELL DISTRIBUTION WIDTH 14.4 % (12.0-15.0); WHITE BLOOD COUNT 6.6 x10^3/uL (4.8-10.8)
[2020-10-14 14:57] LABS: ALBUMIN 4.2 g/dL (3.2-5.5); ALBUMIN/GLOBULIN RATIO 1.6 (1.0-2.2); ALKALINE PHOSPHATASE 62 IU/L (42-121); ALT ALANINE AMINOTRANSFERASE 20 IU/L (10-60); AST ASPARTATE AMINOTRANSFERASE 24 IU/L (10-42); BILIRUBIN,TOTAL 0.5 mg/dL (0.2-1.0); BUN - BLOOD UREA NITROGEN 16 mg/dL (6-20); CALCIUM 9.2 mg/dL (8.5-10.3); CARBON DIOXIDE - CO2 24 mmol/L (21-32); CHLORIDE 103 mmol/L (101-111); CREATININE 0.7 mg/dL (0.4-1.0); GFR - MDRD 81 (>89); GLUCOSE 202 mg/dL (70-100); LIPASE 95 U/L (22-51); POTASSIUM 4.1 mmol/L (3.5-5.0); SODIUM 137 mmol/L (135-145); TOTAL PROTEIN 6.9 g/dL (6.7-8.2)
[2020-10-14 15:24] LABS: CRP - C-REACTIVE PROTEIN < 1.0 mg/dL (0-1.0)
== END 2020-10-14 14:17 | disposition home or self-care (01) ==
LOC: LAB 14:16
PROVIDERS: ATTEND Internal Medicine
DX: N39.0 Urinary tract infection, site not specified (principal); M43.26 Fusion of spine, lumbar region; R10.9 Unspecified abdominal pain
CPT/HCPCS: 36415; 80053; 83690; 85025; 85651; 86140; 87086

== ENCOUNTER 2020-11-05 08:00 | Outpatient (CLI) | payer MEDICARE, OTHER ==
[2020-11-05 17:34] LABS: BASOPHILS # (AUTO) 0.1 10^3/uL (0.0-0.1); BASOPHILS % (AUTO) 0.8 %; EOSINOPHILS # (AUTO) 0.3 10^3/uL (0.0-0.7); EOSINOPHILS % (AUTO) 4.4 %; HCT - HEMATOCRIT 43.4 % (37.0-47.0); HGB - HEMOGLOBIN 14.2 g/dL (12.0-16.0); LYMPHOCYTES # (AUTO) 2.4 10^3/uL (1.5-3.5); LYMPHOCYTES % (AUTO) 37.3 %; MEAN CORPUSCULAR HEMOGLOBIN 29.1 pg (27.0-31.0); MEAN CORPUSCULAR HGB CONC 32.7 g/dL (32.0-36.0); MEAN CORPUSCULAR VOLUME 88.9 fL (81.0-99.0); MEAN PLATELET VOLUME 11.2 fL (7.9-10.8); MONOCYTES # (AUTO) 0.6 10^3/uL (0.0-1.0); MONOCYTES % (AUTO) 8.6 %; NEUTROPHILS # (AUTO) 3.1 10^3/uL (1.5-6.6); NEUTROPHILS % (AUTO) 48.7 %; PLT - PLATELET COUNT 299 10^3/uL (130-450); RED BLOOD COUNT 4.88 10^6/uL (4.20-5.40); RED CELL DISTRIBUTION WIDTH 14.3 % (12.0-15.0); WHITE BLOOD COUNT 6.4 x10^3/uL (4.8-10.8)
[2020-11-05 17:44] LABS: ALBUMIN 4.1 g/dL (3.2-5.5); ALBUMIN/GLOBULIN RATIO 1.3 (1.0-2.2); BILIRUBIN,TOTAL 0.3 mg/dL (0.2-1.0); CALCIUM 9.5 mg/dL (8.5-10.3); CREATININE 0.7 mg/dL (0.4-1.0); POTASSIUM 4.2 mmol/L (3.5-5.0); TOTAL PROTEIN 7.2 g/dL (6.7-8.2)
== END 2020-11-05 23:59 | disposition home or self-care (01) ==
LOC: LAB.N 08:00
PROVIDERS: ATTEND Family Medicine
DX: N39.0 Urinary tract infection, site not specified (principal); R10.9 Unspecified abdominal pain
CPT/HCPCS: 36415; 80053; 83690; 85025; 87086

== ENCOUNTER 2020-11-19 09:59 | Outpatient (CLI) | payer MEDICARE, OTHER ==
[2020-11-19 12:27] LABS: BASOPHILS # (AUTO) 0.1 10^3/uL (0.0-0.1); BASOPHILS % (AUTO) 1.5 %; EOSINOPHILS # (AUTO) 0.4 10^3/uL (0.0-0.7); EOSINOPHILS % (AUTO) 7.9 %; HCT - HEMATOCRIT 42.3 % (37.0-47.0); HGB - HEMOGLOBIN 14.1 g/dL (12.0-16.0); LYMPHOCYTES # (AUTO) 2.1 10^3/uL (1.5-3.5); LYMPHOCYTES % (AUTO) 38.9 %; MEAN CORPUSCULAR HEMOGLOBIN 29.1 pg (27.0-31.0); MEAN CORPUSCULAR HGB CONC 33.3 g/dL (32.0-36.0); MEAN CORPUSCULAR VOLUME 87.2 fL (81.0-99.0); MEAN PLATELET VOLUME 11.3 fL (7.9-10.8); MONOCYTES # (AUTO) 0.5 10^3/uL (0.0-1.0); MONOCYTES % (AUTO) 8.3 %; NEUTROPHILS # (AUTO) 2.3 10^3/uL (1.5-6.6); NEUTROPHILS % (AUTO) 43.2 %; PLT - PLATELET COUNT 270 10^3/uL (130-450); RED BLOOD COUNT 4.85 10^6/uL (4.20-5.40); RED CELL DISTRIBUTION WIDTH 14.1 % (12.0-15.0); WHITE BLOOD COUNT 5.4 x10^3/uL (4.8-10.8)
[2020-11-19 12:39] LABS: ALBUMIN/GLOBULIN RATIO 1.4 (1.0-2.2); BILIRUBIN,TOTAL 0.7 mg/dL (0.2-1.0); CALCIUM 9.3 mg/dL (8.5-10.3); CREATININE 0.6 mg/dL (0.4-1.0); POTASSIUM 4.1 mmol/L (3.5-5.0); TOTAL PROTEIN 6.9 g/dL (6.7-8.2)
== END 2020-11-19 23:59 | disposition home or self-care (01) ==
LOC: LAB.N 09:59
PROVIDERS: ATTEND Family Medicine
DX: R10.9 Unspecified abdominal pain (principal)
CPT/HCPCS: 36415; 80053; 82150; 83690; 85025

== ENCOUNTER 2020-11-25 11:59 | Outpatient (CLI) | payer MEDICARE, OTHER ==
[2020-11-25] MEDS ORDERED: IOPAMIDOL-300 50 ML VIAL ONE ×2 (12:09→12:10)
[2020-11-25] MEDS ORDERED: IOVERSOL 320 100 ML VIAL IVP ONE ×2 (12:09→13:19)
--- NOTE | 2020-11-25 15:26 | CT Report ---
PROCEDURE: Abdomen/Pelvis W INDICATIONS: ABD PAIN CONTRAST: IV CONTRAST: Optiray 320 ml: 100 PO CONTRAST: Isovue 300 ml50 TECHNIQUE: After the administration of IV and oral contrast, 5 mm thick sections acquired from the diaphragms to the symphysis. 5 mm thick coronal and sagittal reformats were acquired. For radiation dose reducti on, the following was used: automated exposure control, adjustment of mA and/or kV according to clovis ent size. COMPARISON: CT examination dated 12/10/2019 FINDINGS: Image quality: Limited by right hip orthoplasty artifact. ABDOMEN: Lung bases: Lung bases are clear. Heart size is normal. Solid organs: Liver and spleen are normal in size and enhancement. Gallbladder is grossly unremarka ble Biliary system is non dilated. Pancreas enhances normally. No adrenal nodules. Kidneys demons trate normal size and enhancement, without hydronephrosis. Nonobstructing right renal calculi are pr esent, as before, largest of which is in the inferior pole right kidney, measuring roughly 7 mm, as b efore. Peritoneum and bowel: Bowel loops demonstrate normal wall thickness and caliber. Normal appendix. No free fluid or air. Nodes and vessels: No retroperitoneal or mesenteric adenopathy by size criteria. Aorta and inferior vena cava are normal in size. Miscellaneous: No ventral hernias. PELVIS: Genitourinary: Bladder wall thickness is normal. Multiple calcified bilateral uterine right hip art hroplasty has been performed. Masses are present, as before. Miscellaneous: No inguinal hernias or adenopathy. Bones: No suspicious bony lesions. Lumbosacral fusion hardware is present. No vertebral body griselda denise fractures. IMPRESSION: 1. No acute process. 2. Normal appendix. 3. Nonobstructing right renal calculi. 4. Uterine fibroids. 5. Postsurgical sequelae. Reviewed by: Otilia Melendez MD on 11/25/2020 3:25 PM PDT Approved by: Otilia Melendez MD on 11/25/2020 3:25 PM PDT Station ID: [id number]
== END 2020-11-25 12:00 | disposition home or self-care (01) ==
LOC: DI 11:59
PROVIDERS: ATTEND Family Medicine
DX: R10.9 Unspecified abdominal pain (principal); D25.9 Leiomyoma of uterus, unspecified; N20.0 Calculus of kidney
CPT/HCPCS: 74177; Q9967

== ENCOUNTER 2021-03-10 07:00 | Outpatient (CLI) | payer MEDICARE, OTHER ==
[2021-03-10 18:13] LABS: FECAL OCCULT BLOOD (FIT) NEGATIVE (NEGATIVE)
== END 2021-03-10 23:59 | disposition home or self-care (01) ==
LOC: LAB 07:00
PROVIDERS: ATTEND Internal Medicine
DX: R10.9 Unspecified abdominal pain (principal)
CPT/HCPCS: 82274

== ENCOUNTER 2021-03-18 09:51 | Outpatient (CLI) | payer MEDICARE, OTHER ==
[2021-03-18 10:05] LABS: BASOPHILS # (AUTO) 0.1 10^3/uL (0.0-0.1); EOSINOPHILS # (AUTO) 0.5 10^3/uL (0.0-0.7); EOSINOPHILS % (AUTO) 5.7 %; HCT - HEMATOCRIT 41.2 % (37.0-47.0); HGB - HEMOGLOBIN 13.5 g/dL (12.0-16.0); LYMPHOCYTES # (AUTO) 2.5 10^3/uL (1.5-3.5); LYMPHOCYTES % (AUTO) 30.8 %; MEAN CORPUSCULAR HEMOGLOBIN 29.1 pg (27.0-31.0); MEAN CORPUSCULAR HGB CONC 32.8 g/dL (32.0-36.0); MEAN CORPUSCULAR VOLUME 88.8 fL (81.0-99.0); MEAN PLATELET VOLUME 9.8 fL (7.9-10.8); MONOCYTES # (AUTO) 0.7 10^3/uL (0.0-1.0); MONOCYTES % (AUTO) 9.1 %; NEUTROPHILS # (AUTO) 4.3 10^3/uL (1.5-6.6); NEUTROPHILS % (AUTO) 53.3 %; PLT - PLATELET COUNT 341 10^3/uL (130-450); RED BLOOD COUNT 4.64 10^6/uL (4.20-5.40); RED CELL DISTRIBUTION WIDTH 13.1 % (12.0-15.0)
[2021-03-18 10:24] LABS: ALBUMIN 3.6 g/dL (3.2-5.5); ALKALINE PHOSPHATASE 78 IU/L (42-121); ALT ALANINE AMINOTRANSFERASE 17 IU/L (10-60); AST ASPARTATE AMINOTRANSFERASE 24 IU/L (10-42); BILIRUBIN,TOTAL 0.5 mg/dL (0.2-1.0); BUN - BLOOD UREA NITROGEN 16 mg/dL (6-20); CALCIUM 9.4 mg/dL (8.5-10.3); CARBON DIOXIDE - CO2 27 mmol/L (21-32); CHLORIDE 106 mmol/L (101-111); CHOL/HDL RATIO 3.6 (<4.4); CHOLESTEROL 170 mg/dL; CREATININE 0.7 mg/dL (0.4-1.0); GFR - MDRD 81 (>89); GLUCOSE 116 mg/dL (70-100); HDL CHOLESTEROL 47 mg/dL; LDL CHOLESTEROL,CALCULATED 105 mg/dL; LDL/HDL RATIO 2.2 (<4.4); SODIUM 142 mmol/L (135-145); TOTAL PROTEIN 7.3 g/dL (6.7-8.2); TRIGLYCERIDES 88 mg/dL; VLDL CHOLESTEROL 18 mg/dL
[2021-03-18 10:35] LABS: THYROID STIMULATING HORMONE 2.59 uIU/mL (0.34-5.60)
[2021-03-18 13:37] LABS: ESTIMATED AVERAGE GLUCOSE 192 mg/dL (70-100); HEMOGLOBIN A1c% 8.3 % (4.27-6.07)
[2021-03-19 11:19] LABS: BILIRUBIN,URINE NEGATIVE (NEGATIVE); GLUCOSE, URINE (UA) 250 mg/dL (NEGATIVE); KETONES,URINE (UA) NEGATIVE (NEGATIVE); LEUKOCYTE ESTERASE, URINE SMALL (NEGATIVE); NITRITE,URINE NEGATIVE (NEGATIVE); OCCULT BLOOD,URINE NEGATIVE (NEGATIVE); PROTEIN,URINE NEGATIVE (NEGATIVE); UROBILINOGEN,URINE 0.2 (NORMAL) E.U./dL (NORMAL)
[2021-03-19 11:25] LABS: CLARITY,URINE CLEAR (CLEAR)
[2021-03-19 11:28] LABS: CREATININE,URINE 115.4 mg/dL; MICROALBUM/CREATININE RATIO,UR 13.9 ug/mg (<30.0); MICROALBUMIN,URINE 1.6 mg/dL (0-300.0)
[2021-03-19 11:31] LABS: BACTERIA,URINE Few /HPF (None Seen); CRYSTALS,URINE 11-25 Ca Oxalate /LPF; RBC,URINE 3 /HPF (0-5); SQUAMOUS EPITHELIAL CELL,UR MOD Squamous (<= Few)
== END 2021-03-18 09:52 | disposition home or self-care (01) ==
LOC: LAB 09:51
PROVIDERS: ATTEND Internal Medicine
DX: E11.9 Type 2 diabetes mellitus without complications (principal); R10.9 Unspecified abdominal pain; F32.A Depression, unspecified
CPT/HCPCS: 36415; 80053; 80061; 81001; 82043; 82570; 83036; 83721; 84443; 85025; 87086

== ENCOUNTER 2021-05-14 15:00 | Outpatient (CLI) | payer MEDICARE, OTHER | END 2021-05-14 15:01 | disposition home or self-care (01) | LOC: RT 15:00 | PROVIDERS: ATTEND Internal Medicine | DX: J44.9 Chronic obstructive pulmonary disease, unspecified (principal) | CPT/HCPCS: 94010; 94727; 94729 ==

== ENCOUNTER 2021-07-13 10:03 | Outpatient (CLI) | payer MEDICARE, OTHER ==
[2021-07-13 10:32] LABS: ESTIMATED AVERAGE GLUCOSE 166 mg/dL (70-100); HEMOGLOBIN A1c% 7.4 % (4.27-6.07)
[2021-07-13 10:42] LABS: BUN - BLOOD UREA NITROGEN 16 mg/dL (6-20); CALCIUM 9.2 mg/dL (8.5-10.3); CARBON DIOXIDE - CO2 26 mmol/L (21-32); CHLORIDE 106 mmol/L (101-111); CHOL/HDL RATIO 3.6 (<4.4); CHOLESTEROL 158 mg/dL; CREATININE 0.6 mg/dL (0.4-1.0); GFR - MDRD 97 (>89); GLUCOSE 113 mg/dL (70-100); HDL CHOLESTEROL 44 mg/dL; LDL CHOLESTEROL,CALCULATED 95 mg/dL; LDL/HDL RATIO 2.2 (<4.4); POTASSIUM 4.1 mmol/L (3.5-5.0); SODIUM 140 mmol/L (135-145); TRIGLYCERIDES 96 mg/dL; VLDL CHOLESTEROL 19 mg/dL
== END 2021-07-13 10:04 | disposition home or self-care (01) ==
LOC: LAB 10:03
PROVIDERS: ATTEND Internal Medicine
DX: E11.42 Type 2 diabetes mellitus with diabetic polyneuropathy (principal)
CPT/HCPCS: 36415; 80048; 80061; 83036; 83721

== ENCOUNTER 2021-07-22 15:13 | Outpatient (CLI) | payer MEDICARE, OTHER ==
--- NOTE | 2021-07-22 16:47 | XRAY Report ---
PROCEDURE: Hip w/Pelvis 2-3V RT INDICATIONS: ARTHRITIS,RT HIP TECHNIQUE: AP pelvis with lateral view(s) of the right hip(s). COMPARISON: None. FINDINGS: Bones: Total right hip arthroplasty with no evidence of hardware failure or loosening. Lower lumbar posterior lateral cy and pedicle screw fixation and posterior laminectomy. No fractures or dislocati ons. Pelvic ring appears intact. No suspicious bony lesions. Soft tissues: The visualized bowel gas pattern is normal. No suspicious soft tissue calcifications. Calcified uterine fibroid. IMPRESSION: Expected appearance of total right hip arthroplasty. No evidence of acute bony abnormali ty of pelvis and right hip. Reviewed by: Suleman Zhu MD on 07/22/2021 4:46 PM PST Approved by: Suleman Zhu MD on 07/22/2021 4:46 PM PST Station ID: [id number]
--- NOTE | 2021-07-22 17:03 | CT Report ---
PROCEDURE: CHEST WO INDICATIONS: PULMONARY NODULE TECHNIQUE: Noncontrast 1mm axial images were acquired from the pulmonary apices to the posterior costophrenic an gles. Axial 5 mm soft tissue kernel reconstructions were performed as well as 8 mm axial MIP and cor onal and sagittal 5 mm reformations. For radiation dose reduction, the following was used: automate d exposure control, adjustment of mA and/or kV according to patient size. COMPARISON: 12/28/2019, 04/02/2020 FINDINGS: Image quality: Excellent. Lungs and pleura: Slowly growing 1.2 cm subsolid pulmonary nodule, left lower lobe, image 179/4. By m y measurements, on previous image 175/4 study dated 04/02/2020, it measured 1.1 cm. By my measurement s on prior study of 12/28/2019 at measured 0.9 cm. No acute air space opacities. No pleural effusions or pneumothorax. Central and peripheral airways are patent and normal in caliber. Mediastinum: Heart size is normal. No pericardial effusion. Moderate coronary artery calcifications . No mediastinal adenopathy by size criteria. Thoracic aorta and central pulmonary arteries are norm al in size. Esophagus is normal in caliber. No hiatal hernia. Bones and chest wall: No suspicious bony lesions. No vertebral body compression fractures. No axil arsh or supraclavicular adenopathy by size criteria. The thyroid is normal in size and there are no incidental findings. Abdomen: Visualized upper abdominal structures demonstrate multiple nonobstructing right renal stones . There is mild hepatic steatosis. IMPRESSION: 1. Very slow growing some solid pulmonary nodule in the left lower lobe measuring 1.2 cm. In December,, it measures 0.9 cm. Consider adenocarcinoma in situ versus very indolent adenocarcinoma. 2. Right nephrolithiasis. Comment: Recommend PET/CT for further evaluation of the slow-growing subsolid left lower lobe lung le denise. Reviewed by: Suleman Zhu MD on 07/22/2021 5:01 PM PST Approved by: Suleman Zhu MD on 07/22/2021 5:01 PM PST Station ID: [id number]
== END 2021-07-22 15:14 | disposition home or self-care (01) ==
LOC: DI 15:13
PROVIDERS: ATTEND Internal Medicine
DX: R91.1 Solitary pulmonary nodule (principal); Z96.641 Presence of right artificial hip joint; N20.0 Calculus of kidney

== ENCOUNTER 2021-10-21 08:00 | Outpatient (CLI) | payer MEDICARE, OTHER ==
--- NOTE | 2021-10-21 16:22 | XRAY Report ---
PROCEDURE: Ankle 3 View LT INDICATIONS: L ANKLE SWELLING AND PX TECHNIQUE: 3 views of the ankle were acquired. COMPARISON: None FINDINGS: Bones: No fractures or dislocations. Ankle mortise is normally aligned. No suspicious bony lesions . Soft tissues: Ankle edema is present. Achilles tendon appears normal. IMPRESSION: Ankle edema. No visualized acute fracture or dislocation. However, occult injury cannot be excluded. Recommend short interval imaging follow-up in 7-10 days as clinically indicated for carole tional evaluation. Reviewed by: Jacinda Marks MD on 10/21/2021 4:20 PM PDT Approved by: Jacinda Marks MD on 10/21/2021 4:20 PM PDT Station ID: [id number]
== END 2021-10-21 23:59 | disposition home or self-care (01) ==
LOC: DI.N 08:00
PROVIDERS: ATTEND Registered Nurse
DX: R60.0 Localized edema (principal); R22.42 Localized swelling, mass and lump, left lower limb
CPT/HCPCS: 36415; 80053; 83880; 84550; 85025; 86140

== ENCOUNTER 2021-11-18 14:10 | Outpatient (CLI) | payer MEDICARE, OTHER ==
--- NOTE | 2021-11-18 15:43 | Ultrasound Report ---
PROCEDURE: Duplex Ext Veins Bilateral INDICATIONS: Bilateral lower extremity edema. TECHNIQUE: Real-time imaging, as well as color and pulse Doppler interrogation, were performed of the deep veins of both legs from the inguinal ligament to the popliteal fossa. COMPARISON: None FINDINGS: The deep veins of the right and left lower extremities are normally compressible, and free of intraluminal thrombus. Color and pulse Doppler demonstrate normal phasic intravascular flow in t he right and left lower extremities. There is normal augmentation response to distal compression man euver in the right and left lower extremities. IMPRESSION: No evidence of deep vein thrombosis involving either the right or left lower extremities. Reviewed by: Shandra Alcantar MD, PhD on 11/18/2021 3:42 PM PDT Approved by: Shandra Alcantar MD, PhD on 11/18/2021 3:42 PM PDT Station ID: [id number]
--- NOTE | 2021-11-18 19:59 | Ultrasound Report ---
PROCEDURE: Duplex Lwr Ext Arterial Bilat INDICATIONS: BILATERAL LOWER EXTREMITY EDEMA, BILATERAL CLAUDIC TECHNIQUE: Color and pulse Doppler interrogation was performed of both lower extremity arterial systems, with im age documentation. COMPARISON: None FINDINGS: Right lower extremity: Common femoral artery: 161 cm/sec, with biphasic flow. Deep femoral artery: 105 cm/sec, with biphasic flow. Proximal superficial femoral artery: 158 cm/sec, with biphasic flow. Mid superficial femoral artery: 122 cm/sec, with biphasic flow. Distal superficial femoral artery: 111 cm/sec, with triphasic flow. Popliteal artery: 76 cm/sec, with 5 flow. Posterior tibial artery: 119 cm/sec, with triphasic flow. Anterior tibial artery/dorsalis pedis: 47 cm/sec, with biphasic flow. Bobby-scale imaging description: Widely patent vessels Left lower extremity: Common femoral artery: 163 cm/sec, with biphasic flow. Deep femoral artery: 113 cm/sec, with biphasic flow. Proximal superficial femoral artery: 141 cm/sec, with biphasic flow. Mid superficial femoral artery: 142 cm/sec, with biphasic flow. Distal superficial femoral artery: 115 cm/sec, with triphasic flow. Popliteal artery: 133 cm/sec, with triphasic flow. Posterior tibial artery: 103 cm/sec, with triphasic flow. Anterior tibial artery/dorsalis pedis: 68 cm/sec, with triphasic flow. Bobby-scale imaging description: Widely patent vessels IMPRESSION: Unremarkable bilateral lower extremity duplex arterial ultrasound. Reviewed by: Suleman Zhu MD on 11/18/2021 7:58 PM PDT Approved by: Suleman Zhu MD on 11/18/2021 7:58 PM PDT Station ID: [id number]
== END 2021-11-18 14:11 | disposition home or self-care (01) ==
LOC: DI 14:10
PROVIDERS: ATTEND Internal Medicine
DX: R60.0 Localized edema (principal); I73.9 Peripheral vascular disease, unspecified
CPT/HCPCS: 93925; 93970

== ENCOUNTER 2021-12-03 09:29 | Emergency (ER) | payer MEDICARE, OTHER ==
[2021-12-03 09:51] LABS: BASOPHILS # (AUTO) 0.1 10^3/uL (0.0-0.1); BASOPHILS % (AUTO) 0.7 %; EOSINOPHILS # (AUTO) 0.3 10^3/uL (0.0-0.7); EOSINOPHILS % (AUTO) 2.9 %; HCT - HEMATOCRIT 40.3 % (37.0-47.0); HGB - HEMOGLOBIN 13.4 g/dL (12.0-16.0); LYMPHOCYTES # (AUTO) 1.3 10^3/uL (1.5-3.5); LYMPHOCYTES % (AUTO) 13.4 %; MEAN CORPUSCULAR HEMOGLOBIN 28.9 pg (27.0-31.0); MEAN CORPUSCULAR HGB CONC 33.3 g/dL (32.0-36.0); MEAN PLATELET VOLUME 10.3 fL (7.9-10.8); MONOCYTES # (AUTO) 0.8 10^3/uL (0.0-1.0); MONOCYTES % (AUTO) 7.6 %; NEUTROPHILS # (AUTO) 7.4 10^3/uL (1.5-6.6); NEUTROPHILS % (AUTO) 75.2 %; PLT - PLATELET COUNT 231 10^3/uL (130-450); RED BLOOD COUNT 4.63 10^6/uL (4.20-5.40); RED CELL DISTRIBUTION WIDTH 14.6 % (12.0-15.0); WHITE BLOOD COUNT 9.9 x10^3/uL (4.8-10.8)
--- NOTE | 2021-12-03 10:00 | ED Physician Documentation ---
PD HPI BACK PAIN - Stated complaint Stated Complaint: BACK PAIN - Chief complaint Chief Complaint: Back Pain - History obtained from History obtained from: Patient - History of Present Illness Timing - onset: How many days ago (few) Timing - duration: Days (few) Timing - details: Gradual onset, Still present Location: Mid (flank and lumbar area.), Lower, Left Quality: Pain, Spasm, Aching Associated symptoms: No: Fever, Weakness, Numbness Worsened by: Movement, Lifting Contributing factors: Twisting. No: Trauma, Out of meds Similar symptoms before: Diagnosis (history of chronic back pain but this is different location and more similar to kidney stones/infections.) Recently seen: Clinic (walk in clinic yesterday without Rx nor UA testing. Patient did not feel they did anything.) Review of Systems Constitutional: denies: Fever, Chills, Myalgias Nose: denies: Rhinorrhea / runny nose, Congestion Throat: denies: Sore throat Respiratory: denies: Cough GI: reports: Abdominal Pain (the back pain does extend some to LLQ area.), Naus ea. denies: Vomiting, Diarrhea : denies: Dysuria, Hematuria Skin: denies: Rash, Lesions Neurologic: denies: Focal weakness, Numbness PD PAST MEDICAL HISTORY - Past Medical History Respiratory: CPAP use Musculoskeletal: Osteoarthritis, Chronic back pain - Past Surgical History Past Surgical History: Yes Ortho: Spine surgery - Present Medications Home Medications: Ambulatory Orders Medication Instructions Recorded Confirmed Calcium [Calcio [place]] 500 mg PO DAILY 05/09/13 12/03/21 Cholecalciferol (Vitamin D3) 200 unit PO DAILY 05/09/13 12/03/21 [Vitamin D-3] Insulin Glargine [Lantus Solostar] 44 units SUBCUT QDBREAKFAST 05/09/13 12/03/21 Medroxyprogesterone Acetate 2.5 mg PO DAILY 05/09/13 12/03/21 Multivitamin [Animal Chews] 2 each PO DAILY 05/09/13 12/03/21 Pravastatin Sodium [Pravachol] 40 mg PO DAILY 05/09/13 12/03/21 Sitagliptin Phosphate [Januvia] 100 mg PO DAILY 05/09/13 12/03/21 estradioL [Estradiol] 1 mg PO DAILY 05/09/13 12/03/21 Meloxicam 15 mg PO DAILY 06/16/16 12/03/21 Anil Root Extract 5,200 mg PO DAILY 07/14/20 12/03/21 Glimepiride 1 mg PO DAILY 12/03/21 12/03/21 Ipratropium/Albuterol [Combivent 1 puffs IH TID 12/03/21 12/03/21 Respimat] Mirtazapine 15 mg PO DAILY 12/03/21 12/03/21 dexAMETHasone [Decadron] 4 mg PO DAILY #5 tablet 12/03/21 tiZANidine [Zanaflex] 4 mg PO Q8H PRN #25 tablet 12/03/21 - Allergies Allergies/Adverse Reactions: Allergies Allergy/AdvReac Type Severity Reaction Status Date / Time No Known Drug Allergies Allergy Verified 12/03/21 09:34 - Social History Does the pt smoke?: No Smoking Status: Former smoker Does the pt drink ETOH?: No Does the pt have substance abuse?: No - Immunizations Immunizations are current?: Yes - POLST Patient has POLST: No PD ED PE NORMAL - Vitals Vital signs reviewed: Yes - General General: Alert and oriented X 3, Well developed/nourished, Other (appears in pain due to back; guarding ROM. ) - Cardiac Cardiac: RRR, No murmur - Respiratory Respiratory: Clear bilaterally - Abdomen Abdomen: Soft, Non tender, Non distended - Back Back: No spinal TTP, Other (tender lumbar area upper aspect and lower thoracic, more to the left. No rash nor sores. ) - Derm Derm: Normal color, Warm and dry, No rash Results - Vitals Vitals: Vital Signs - 24 hr 12/03/21 12/03/21 09:34 12:04 Temperature 37.0 C 37 C Heart Rate 75 68 Respiratory 19 14 Rate Blood Pressure 135/80 H 138/54 H O2 Saturation 95 98 Oxygen O2 Source Room air - Labs Labs: Laboratory Tests 12/03/21 12/03/21 12/03/21 09:45 09:45 11:36 WBC 9.9 RBC 4.63 Hgb 13.4 Hct 40.3 MCV 87.0 MCH 28.9 MCHC 33.3 RDW 14.6 Plt Count 231 MPV 10.3 Neut # (Auto) 7.4 H Lymph # (Auto) 1.3 L [place] # (Auto) 0.8 Eos # (Auto) 0.3 Baso # (Auto) 0.1 Absolute Nucleated RBC 0.00 Nucleated RBC % 0.0 Sodium 142 Potassium 3.9 Chloride 102 Carbon Dioxide 29 Anion Gap 11.0 BUN 21 H Creatinine 0.7 Estimated GFR (MDRD) 81 L Glucose 156 H Calcium 9.3 Total Bilirubin 0.3 AST 26 ALT 23 Alkaline Phosphatase 57 Total Protein 6.9 Albumin 4.1 Globulin 2.8 Albumin/Globulin Ratio 1.5 Lipase 43 Urine Color YELLOW Urine Clarity CLEAR Urine pH 6.0 Ur Specific [place]y 1.025 Urine Protein NEGATIVE Urine Glucose (UA) NEGATIVE Urine Ketones NEGATIVE Urine Occult Blood NEGATIVE Urine Nitrite NEGATIVE Urine Bilirubin NEGATIVE Urine Urobilinogen 0.2 (NORMAL) Ur Leukocyte Esterase NEGATIVE Ur Microscopic Review NOT INDICATED Urine Culture Comments NOT INDICATED - Rads (name of study) KUB CT Radiology: Prelim report reviewed (no acute process), See rad report PD MEDICAL DECISION MAKING - ED course Complexity details: re-evaluated patient (moderately well improved with Toradol and fentanyl. She has sobxone strips at home and can increase dose some. Also has oxycodone for PRN pain. ), considered differential (Flank pain and can get CT scan to ensure no kidney stones or other structural problems. She does take buprenorphine for chronic pain. Initial discussion with the patient was to try not on opioid medication for pain and I ordered ketamine. She subsequently declined and instead we tried fentanyl.), d/w patient Departure - Departure Disposition: 01 Home, Self Care Clinical Impression: Low back pain Condition: Stable Record reviewed to determine appropriate education?: Yes Instructions: ED Low Back Pain Injury Follow-Up: Devaughn Sanders MD [Primary Care Provider] - Prescriptions: dexAMETHasone [Decadron] 4 mg PO DAILY #5 tablet tiZANidine [Zanaflex] 4 mg PO Q8H PRN #25 tablet PRN Reason: Spasms Comments: Your CT scan does not show any acute fractures. The positioning of your prior surgeries still appear in place. No obvious compression fractures or disc space loss above that area. You do have some small kidney stones in the kidney but not in a location to be causing pain. You are not "passing" any kidney stones. No other acute abnormality seen per the radiology report. You are obviously still having pain. Presume some musculoskeletal pain and may be having some arthritic pain in the spine along with muscle spasms. Continue your current meloxicam. In the short-term, I would suggest increasing your buprenorphine to 2 films twice daily up from your current 1-06/07 twice daily. You could add your oxycodone 5 mg every 4-6 hours if needed for pain as well. Contact your pain medication prescriber tomorrow to let them know that I suggested this for the short-term. Add tizanidine muscle relaxant 3 times daily. For the next 5 days we could also try a steroid anti-inflammatory and see if as a combined effect. I sent the prescriptions to [facility] pharmacy. Discharge Date/Time: 12/03/21 12:49
[2021-12-03] MEDS ORDERED: KETAMINE 40 MG in SODIUM CHLORIDE 0.9% 100ML 100 ML IV STA (10:14)
[2021-12-03] MEDS ORDERED: KETOROLAC 15 MG/ML VIAL IVP STA (10:14)
[2021-12-03 10:15] LABS: ALBUMIN 4.1 g/dL (3.2-5.5); ALBUMIN/GLOBULIN RATIO 1.5 (1.0-2.2); BILIRUBIN,TOTAL 0.3 mg/dL (0.2-1.0); CALCIUM 9.3 mg/dL (8.5-10.3); CREATININE 0.7 mg/dL (0.4-1.0); POTASSIUM 3.9 mmol/L (3.5-5.0); TOTAL PROTEIN 6.9 g/dL (6.7-8.2)
[2021-12-03] MEDS ORDERED: fentaNYL 100 MCG/2 ML VIAL IVP STA (10:53)
--- NOTE | 2021-12-03 11:27 | CT Report ---
PROCEDURE: Abdomen/Pelvis WO INDICATIONS: right flank/low back pain for few days TECHNIQUE: Noncontrast 5 mm thick sections acquired from the diaphragms to the symphysis. 5 mm coronal and sagi ttal reformats were then performed. For radiation dose reduction, the following was used: automated exposure control, adjustment of mA and/or kV according to patient size. COMPARISON: None. FINDINGS: Image quality: Excellent. ABDOMEN: Lung bases: Mild bibasilar atelectasis, otherwise the lung bases are clear. Heart size is normal. Solid organs: Liver and spleen are normal in size. Gallbladder Pancreas is normal in contours. N o adrenal nodules. Both kidneys have a normal size. The right kidney has nonobstructing calcification s with a 9 mm calcification centrally in several smaller punctate calcifications, with no evidence of obstruction. The ureters both have a normal caliber. No calcifications in the left kidney. The bladd er is filled with fluid with no calcifications, wall thickening, or masses. Peritoneum and bowel: Unenhanced bowel loops demonstrate normal wall thickness and caliber. No free fluid or air. Normal appendix. Nodes and vessels: No retroperitoneal or mesenteric adenopathy by size criteria. Aorta and inferior vena cava are normal in caliber. Miscellaneous: No ventral hernias. PELVIS: Genitourinary: Bladder wall thickness is normal. Calcified uterine fibroids are present. Miscellaneous: No inguinal hernias or adenopathy. Bones: No suspicious bony lesions. No vertebral body compression fractures. IMPRESSION: 1. Nonobstructing calcifications in the right kidney. 2. No obstructing kidney stones in the right kidney or ureter. 3. Calcified uterine fibroids are present. Reviewed by: Ruben Alejo on 12/03/2021 11:25 AM PDT Approved by: Ruben Alejo on 12/03/2021 11:25 AM PDT Station ID: [id number]
[2021-12-03 11:46] LABS: BILIRUBIN,URINE NEGATIVE (NEGATIVE); GLUCOSE, URINE (UA) NEGATIVE (NEGATIVE); KETONES,URINE (UA) NEGATIVE (NEGATIVE); LEUKOCYTE ESTERASE, URINE NEGATIVE (NEGATIVE); NITRITE,URINE NEGATIVE (NEGATIVE); OCCULT BLOOD,URINE NEGATIVE (NEGATIVE); PROTEIN,URINE NEGATIVE (NEGATIVE); UROBILINOGEN,URINE 0.2 (NORMAL) E.U./dL (NORMAL)
[2021-12-03 11:47] LABS: CLARITY,URINE CLEAR (CLEAR)
[2021-12-03 12:06] VITALS: BP 138/54
[2021-12-03] MEDS ORDERED: tiZANidine 4 MG TABLET PO STA (12:31)
== END 2021-12-03 12:49 | disposition home or self-care (01) ==
LOC: ED 09:29
DX: M54.50 Low back pain, unspecified (principal); Z87.891 Personal history of nicotine dependence
CPT/HCPCS: 36415; 74176; 80053; 81003; 83690; 85025; 96374; 99284; A9270; 81001; 87086

== ENCOUNTER 2021-12-25 14:36 | Emergency (ER) | payer MEDICARE, OTHER ==
[2021-12-25 15:07] VITALS: BP 143/48
[2021-12-25] MEDS ORDERED: KETOROLAC 60 MG/2 ML VIAL IM STA (16:01)
--- NOTE | 2021-12-25 16:02 | ED Physician Documentation ---
PD HPI BACK PAIN - Stated complaint Stated Complaint: BACK PX - Chief complaint Chief Complaint: Back Pain - History obtained from History obtained from: Patient - Additional information Additional information: 76-year-old woman with chronic back pain with a fusion from L2-S1 has developed new pain just above the level of her fusion over the last couple of days. It hurts to sit up and move and twist but pain is also present at rest but to a lesser extent. There is no associated abdominal pain, fevers, new weakness, numbness, or tingling in the legs. Note that she does have chronic tingling in the left leg that is not new. She denies saddle anesthesia or incontinence. She has been taking buprenorphine and is getting some relief from it. She also took an oxycodone just prior to arrival and is unsure if it is helping yet. Review of Systems Constitutional: denies: Fever, Chills Throat: reports: Reviewed and negative Cardiac: reports: Reviewed and negative Respiratory: reports: Reviewed and negative PD PAST MEDICAL HISTORY - Past Medical History Cardiovascular: None Respiratory: CPAP use Neuro: None Endocrine/Autoimmune: Type 2 diabetes GI: None ENRICHMENT ASSISTANT: None : Kidney stones HEENT: None Psych: None Musculoskeletal: Osteoarthritis, Chronic back pain Derm: None - Past Surgical History Past Surgical History: Yes General: Other Ortho: Spine surgery - Present Medications Home Medications: Ambulatory Orders Medication Instructions Recorded Confirmed Calcium [Calcio [place]] 500 mg PO DAILY 05/09/13 12/03/21 Cholecalciferol (Vitamin D3) 200 unit PO DAILY 05/09/13 12/03/21 [Vitamin D-3] Insulin Glargine [Lantus Solostar] 44 units SUBCUT QDBREAKFAST 05/09/13 12/03/21 Medroxyprogesterone Acetate 2.5 mg PO DAILY 05/09/13 12/03/21 Multivitamin [Animal Chews] 2 each PO DAILY 05/09/13 12/03/21 Pravastatin Sodium [Pravachol] 40 mg PO DAILY 05/09/13 12/03/21 Sitagliptin Phosphate [Januvia] 100 mg PO DAILY 05/09/13 12/03/21 estradioL [Estradiol] 1 mg PO DAILY 05/09/13 12/03/21 Meloxicam 15 mg PO DAILY 06/16/16 12/03/21 Ashwagandha Root Extract 5,200 mg PO DAILY 07/14/20 12/03/21 Glimepiride 1 mg PO DAILY 12/03/21 12/03/21 Ipratropium/Albuterol [Combivent 1 puffs IH TID 12/03/21 12/03/21 Respimat] Mirtazapine 15 mg PO DAILY 12/03/21 12/03/21 dexAMETHasone [Decadron] 4 mg PO DAILY #5 tablet 12/03/21 tiZANidine [Zanaflex] 4 mg PO Q8H PRN #25 tablet 12/03/21 dexAMETHasone [Decadron] 4 mg PO BIDWM #10 tablet 12/25/21 tiZANidine [Zanaflex] 4 mg PO Q8H PRN #25 tablet 12/25/21 - Allergies Allergies/Adverse Reactions: Allergies Allergy/AdvReac Type Severity Reaction Status Date / Time No Known Drug Allergies Allergy Verified 12/25/21 15:07 - Social History Does the pt smoke?: No Smoking Status: Former smoker Does the pt drink ETOH?: No Does the pt have substance abuse?: No - Immunizations Immunizations are current?: Yes - POLST Patient has POLST: No PD ED PE NORMAL - Vitals Vital signs reviewed: Yes - General General: Alert and oriented X 3, Other (Comfortable at rest, winces with motion,) - Cardiac Cardiac: RRR, No murmur - Respiratory Respiratory: No respiratory distress, Clear bilaterally - Abdomen Abdomen: Normal bowel sounds, Non tender - Back Back: Other (Extensive spinal fusion scar over the lumbar spine, nontender) - Derm Derm: Normal color, Warm and dry - Extremities Extremities: No edema, No calf tenderness / cord, Other (The patient has equal and normal Achilles and patellar reflexes bilaterally. Normal sensation in all areas of the legs. Patient denies saddle anesthesia. Normal strength in flexion-extension at the ankles, knees, and flexion of the hips.) - Neuro Neuro: Alert and oriented X 3, Normal speech Results - Vitals Vitals: Vital Signs - 24 hr 12/25/21 15:04 Temperature 36.9 C Heart Rate 68 Respiratory 20 Rate Blood Pressure 143/48 H O2 Saturation 98 Oxygen O2 Source Nasal cannula PD MEDICAL DECISION MAKING - ED course ED course: 76-year-old woman presents with back pain, she has an extensive history of back issues. It does seem musculoskeletal on exam, she seems comfortable at rest and winces with motion. Her lower lower extremity neurologic exam is normal. She was seen here 2 weeks ago for pain, she states that the visit was for kidney stones, review of the chart shows that she had nephroliths but no ureterolith. She was prescribed tizanidine and Decadron on that visit. I queried if that was helpful for her and she states she never filled them. Otherwise the scan 2 weeks ago was unremarkable with hardware in place. We discussed repeat imaging today but since its been such a short timeframe I do not think it is necessary and she is agreeable. Departure - Departure Disposition: 01 Home, Self Care Clinical Impression: Low back pain Condition: Good Record reviewed to determine appropriate education?: Yes Instructions: ED Neck Back Pain General Prescriptions: dexAMETHasone [Decadron] 4 mg PO BIDWM #10 tablet tiZANidine [Zanaflex] 4 mg PO Q8H PRN #25 tablet PRN Reason: Spasms Comments: Follow-up with your primary care physician, next available appointment, return for new or worsening symptoms. I sent your prescription electronically to [facility] in [place].
== END 2021-12-25 16:42 | disposition home or self-care (01) ==
LOC: ED 14:36
DX: M54.50 Low back pain, unspecified (principal); E11.9 Type 2 diabetes mellitus without complications; Z79.4 Long term (current) use of insulin; Z87.891 Personal history of nicotine dependence
CPT/HCPCS: 96372; 99283; 99284

== ENCOUNTER 2021-12-30 13:16 | Outpatient (CLI) | payer MEDICARE, OTHER ==
--- NOTE | 2021-12-31 10:28 | CT Report ---
PROCEDURE: CHEST WO INDICATIONS: LEFT LOWER LOBE PULMONARY NODULE TECHNIQUE: Noncontrast 1mm axial images were acquired from the pulmonary apices to the posterior costophrenic an gles. Axial 5 mm soft tissue kernel reconstructions were performed as well as 8 mm axial MIP and cor onal and sagittal 5 mm reformations. For radiation dose reduction, the following was used: automate d exposure control, adjustment of mA and/or kV according to patient size. COMPARISON: CT chest without, 07/22/2021,03/25/2020 and 12/28/2019. FINDINGS: Image quality: Excellent. Lungs and pleura: There is a 1.2 cm groundglass nodule in the left lower lobe (series 4 image 175), unchanged when compared to the last exam. A 2 mm solid nodule is seen in the right lower lobe (series 4 image 226), also unchanged. No acute air space opacities. No pleural effusions or pneumothorax. Central and peripheral airways are patent and normal in caliber. , Mediastinum: Heart size is normal. No pericardial effusion. Mild coronary calcification. No medias tinal adenopathy by size criteria. Thoracic aorta and central pulmonary arteries are normal in size. Esophagus is normal in caliber. Small hiatal hernia. Bones and chest wall: No suspicious bony lesions. No vertebral body compression fractures. No axil arsh or supraclavicular adenopathy by size criteria. The thyroid is normal in size and there are no incidental findings. Abdomen: Visualized upper abdominal solid organs and bowel loops appear normal in the absence of con trast. IMPRESSION: 1. A 1.2 cm groundglass nodule in the left lower lobe, which appears unchanged since the last exam. I t has slightly enlarged since 12/28/2019. Adenocarcinoma in situ is a diagnostic consideration. Recomm end continued imaging follow-up. 2. Stable 2 mm nodule in the right lower lobe. Fleischner Society criteria for SOLID lung nodule followup. Nodule size (mm)Low-risk patientHigh-risk patient "d4No follow-up neededFollow-up at 12 mo; if no change, no further follow-up >1-9Cakvtl-ya CT at 12 mo; if no change, no further follow-up needed.Initial follow-up CT at 6-12 mo, then 18-24 mo if no change. >6-8Initial follow-up CT at 6-12 mo, then 18-24 mo if no change. Initial follow-up CT at 3-6 mo, then 9-12 mo and 24 mo if no change. >8Follow-up CT at 3, 9, 24 mo. Or PET and/or biopsy.Same as for low-risk pts. Fleischner Society criteria for SUB-SOLID lung nodule followup. Solitary pure ground-glass nodules 5 mm or lessNo followup needed. >5 mm3 mo follow-up CT to confirm persistence. Then annual CT for 3 years. Part-solid nodules3 mo follow-up CT to confirm persistence. If persistent with solid component <5 mm , annual CT for at least 3 years. If solid component is 5 mm or more, biopsy or surgical resection. Consider PET-CT for lesions > 10 mm. Multiple sub-solid nodules Pure ground glass nodules [address] at 2 and 4 years. Pure ground glass nodules >5 mm without dominant lesion. [address] to confirm persistence, then annual followup CT for at least 3 years. Dominant nodule(s) with part-solid or solid component. [address] to confirm persistence. If persistent, consider biopsy or surgical resection, amy if lesions have >5 mm solid component. Reviewed by: Floyd Anna MD on 12/31/2021 10:27 AM PDT Approved by: Floyd Anna MD on 12/31/2021 10:27 AM PDT Station ID: [id number]
== END 2021-12-30 13:17 | disposition home or self-care (01) ==
LOC: DI 13:16
PROVIDERS: ATTEND Internal Medicine
DX: R91.8 Other nonspecific abnormal finding of lung field (principal)

== ENCOUNTER 2022-01-07 12:29 | Outpatient (CLI) | payer MEDICARE, OTHER | END 2022-01-07 12:30 | disposition home or self-care (01) | LOC: LAB 12:29 | DX: Z51.81 Encounter for therapeutic drug level monitoring (principal); Z79.899 Other long term (current) drug therapy | CPT/HCPCS: 81599 ==

== ENCOUNTER 2022-03-02 13:42 | Outpatient (CLI) | payer MEDICARE, OTHER | END 2022-03-02 13:43 | disposition home or self-care (01) | LOC: LAB 13:42 | PROVIDERS: ATTEND Family Medicine | DX: G89.4 Chronic pain syndrome (principal) | CPT/HCPCS: 80307; 81599 ==

== ENCOUNTER 2022-04-21 12:55 | Outpatient (CLI) | payer MEDICARE, OTHER ==
--- NOTE | 2022-04-22 09:43 | Mammography Report ---
BILATERAL DIGITAL SCREENING MAMMOGRAM 3D/2D: 04/21/2022 CLINICAL: Routine screening. Comparison is made to exams dated: 03/20/2015 mammogram, 09/27/2011 mammogram, 05/02/2013 mammogram, and 07/09/2010 mammogram - [facility]. Both breasts are heterogeneously dense, which may obscure small masses (category c / 51-75% glandular tissue). There is a focal asymmetry in the right breast at 11 o'clock posterior depth. No other significant masses, calcifications, or other findings are seen in either breast. IMPRESSION: INCOMPLETE: NEEDS ADDITIONAL IMAGING EVALUATION The focal asymmetry in the right breast is indeterminate. Additional views with possible ultrasound are recommended. Based on the Tyrer Cuzick model (a risk assessment model) the patients lifetime risk is 3.3% and her 10 year risk is 0.0%. According to the ACR, ACS, and NCCN guidelines, an annual breast MRI exam shankar g with mammogram is recommended if the patients lifetime risk is 20% or greater. This exam was interpreted at Station ID: [id number]. NOTE: For mammograms, a report in lay terms will be sent to the patient. Approximately 15% of breast malignancies will not be visualized mammographically. In the management of a palpable breast mass, a negative mammogram must not discourage biopsy of a clinically suspicious lesion. Electronically Signed By: Rekha Lobato M.D. lk/:04/21/2022 14:03:58 ACR BI-RADS Category 0: Incomplete 3340F PARENCHYMAL PATTERN: (D) - The breast(s) demonstrate(s) heterogeneously dense fibroglandular meenu mares. BI-RADS CATEGORY: (0) - 0 Mammo and [place] [id number] Immediate follow-up LATERALITY: (B)
== END 2022-04-21 12:56 | disposition home or self-care (01) ==
LOC: DI 12:55
PROVIDERS: ATTEND Internal Medicine
DX: Z12.31 Encounter for screening mammogram for malignant neoplasm of breast (principal); R92.8 Other abnormal and inconclusive findings on diagnostic imaging of breast

== ENCOUNTER 2022-04-21 15:55 | Outpatient (CLI) | payer MEDICARE, OTHER ==
--- NOTE | 2022-04-21 16:19 | SLEEP CARE CONSULTATION ---
Information from patient questionnaire entered by Julienne Momin. I have reviewed and concur with the information entered by Julienne Momin. This document represents the service I personally performed and the decisions made by me, Telma Jacob ARNP. History of Present Illness Service Date and Time: 04/21/2022 1555 Previous diagnosis: Moderate, Obstructive Sleep Apnea-Hypopnea Syndrome AHI: 20.1 (in 06/2005) Reason for follow up: other (F/U FROM 04/19/[address] SPANN) Equipment type: CPAP Equipment obtained from: [employer] (getting supplies) Mask style: Nasal pillows Backup mask available: No Last cushion change: 2 weeks ago Prior sleep studies: Yes Year and Where: 2005 [facility] additional information: AKIKO KIRBY was diagnosed to have moderate, AHI 20.1, obstructive sleep apnea-hypopnea syndrome and returned today for CPAP therapy follow-up with SD card. CPAP Compliance Data Compliance data discussion: Patient did bring in her SD card. Patient states she has not had any follow-up since her original sleep study in 2005. She has her original machine as well but is a [employer]. We tried to obtain data from her SD card but the download was taking a long time. Subjective Patient concerns: reports: nasal congestion. denies: aerophagia, mask discomfort, air blowing in eyes, mask leak noise, condensation in mask/hose, dry mouth, nose, throat, epistaxis Observed to snore while using device: No Current pressure setting perceived as: comfortable On therapy, patient: reports: other (not feeling difference with CPAP use at this time). denies: awakening more refreshed, more rested overall, drowsiness while driving Initial [place] Sleepiness Scale score: 16 (04/21/2022) Allergies and Home Medications Drug allergies reviewed: Yes (NKDA) Home medication list reviewed: Yes (no changes) Allergy and home medication list: Allergies No Known Drug Allergies Allergy (Verified 04/19/22 14:47) Review of Systems Review of systems same as previous: Yes (no changes) Physical Exam Vital signs obtained and entered by: JULIENNE Garcia MA Blood Pressure: 136/78 (LEFT ARM) Cuff size: regular Heart Rate: 72 O2 Saturation: 96 Height: 5 ft 6 in Weight: 182 lb Body Mass Index: 29.3 BMI Classification: Overweight Impression and Plan 1. Obstructive Sleep Apnea-Hypopnea Syndrome, moderate, with unknown treatment compliance and unknown apnea control. We attempted to download her data but it was just taking a very long time. After asking patient's preference, we let her go home while we continued to try to download her SD card information. The [employer] site can be slow to download and she probably has a lot of date on her card. Patient requested that we send her SD card to her in the mail once we get the full download from it and we agreed. She is currently on 2 L/oxygen all the time and has it bled in through her CPAP at night. Patient's apnea severity and rationale for treatment to reduce apnea, improve sleep quality and reduce cardiovascular and cerebrovascular events was reviewed. I also reviewed the benefit of consistent device use of CPAP for diabetes and COPD. 2. Overweight, unspecified. Currently patients BMI is 29.8. Obesity increases the risk of apnea, CPAP pressure requirements and overall health risks especially cardiovascular and diabetes. Thus patient is advised to lose weight. * Continue auto CPAP pressure at unknown cmH2O * Attempt to lose weight * Call this office if any problems using CPAP * Return for follow up will depend on plan of care once we obtain her CPAP data, or sooner if concerns arise Counseling Topics: Weight loss health impact Visit Type: In Office Time Spent with Patient (minutes): 20 Provider Statement: I spent 100% of the Face to Face Visit with the patient with greater than 50% spent counseling the patient and coordination of care.
[2022-04-21 16:26] VITALS: BP 136/78
== END 2022-04-21 15:56 | disposition home or self-care (01) ==
LOC: SC 15:55
PROVIDERS: ATTEND Nurse Practitioner Family
DX: G47.33 Obstructive sleep apnea (adult) (pediatric) (principal); E66.3 Overweight; Z68.29 Body mass index [BMI] 29.0-29.9, adult
CPT/HCPCS: 99213; G0463; 99212

== ENCOUNTER 2022-05-07 10:14 | Outpatient (CLI) | payer MEDICARE, OTHER ==
[2022-05-07 10:31] LABS: BASOPHILS # (AUTO) 0.1 10^3/uL (0.0-0.1); BASOPHILS % (AUTO) 1.1 %; EOSINOPHILS # (AUTO) 0.5 10^3/uL (0.0-0.7); EOSINOPHILS % (AUTO) 6.7 %; HCT - HEMATOCRIT 41.7 % (37.0-47.0); HGB - HEMOGLOBIN 13.4 g/dL (12.0-16.0); LYMPHOCYTES # (AUTO) 3.3 10^3/uL (1.5-3.5); LYMPHOCYTES % (AUTO) 46.7 %; MEAN CORPUSCULAR HEMOGLOBIN 28.7 pg (27.0-31.0); MEAN CORPUSCULAR HGB CONC 32.1 g/dL (32.0-36.0); MEAN CORPUSCULAR VOLUME 89.3 fL (81.0-99.0); MEAN PLATELET VOLUME 10.7 fL (7.9-10.8); MONOCYTES # (AUTO) 0.7 10^3/uL (0.0-1.0); MONOCYTES % (AUTO) 9.5 %; NEUTROPHILS # (AUTO) 2.5 10^3/uL (1.5-6.6); NEUTROPHILS % (AUTO) 35.9 %; PLT - PLATELET COUNT 249 10^3/uL (130-450); RED BLOOD COUNT 4.67 10^6/uL (4.20-5.40); RED CELL DISTRIBUTION WIDTH 14.3 % (12.0-15.0)
[2022-05-07 10:52] LABS: ALBUMIN 4.2 g/dL (3.2-5.5); ALBUMIN/GLOBULIN RATIO 1.4 (1.0-2.2); ALKALINE PHOSPHATASE 64 IU/L (42-121); ALT ALANINE AMINOTRANSFERASE 22 IU/L (10-60); AST ASPARTATE AMINOTRANSFERASE 25 IU/L (10-42); BILIRUBIN,TOTAL 0.5 mg/dL (0.2-1.0); BUN - BLOOD UREA NITROGEN 21 mg/dL (6-20); CALCIUM 9.4 mg/dL (8.5-10.3); CARBON DIOXIDE - CO2 28 mmol/L (21-32); CHLORIDE 105 mmol/L (101-111); CHOL/HDL RATIO 3.5 (<4.4); CHOLESTEROL 162 mg/dL; CREATININE 0.7 mg/dL (0.4-1.0); GFR - MDRD 81 (>89); GLUCOSE 95 mg/dL (70-100); HDL CHOLESTEROL 46 mg/dL; LDL CHOLESTEROL,CALCULATED 96 mg/dL; LDL/HDL RATIO 2.1 (<4.4); POTASSIUM 3.7 mmol/L (3.5-5.0); SODIUM 141 mmol/L (135-145); TOTAL PROTEIN 7.1 g/dL (6.7-8.2); TRIGLYCERIDES 101 mg/dL; VLDL CHOLESTEROL 20 mg/dL
[2022-05-07 10:54] LABS: CREATININE,URINE 150.7 mg/dL; MICROALBUM/CREATININE RATIO,UR 19.9 ug/mg (<30.0)
[2022-05-07 13:13] LABS: ESTIMATED AVERAGE GLUCOSE 186 mg/dL (70-100); HEMOGLOBIN A1c% 8.1 % (4.27-6.07)
== END 2022-05-07 10:15 | disposition home or self-care (01) ==
LOC: LAB 10:14
PROVIDERS: ATTEND Internal Medicine
DX: E78.5 Hyperlipidemia, unspecified (principal); E11.42 Type 2 diabetes mellitus with diabetic polyneuropathy; G47.33 Obstructive sleep apnea (adult) (pediatric)
CPT/HCPCS: 36415; 80053; 80061; 82043; 82570; 83036; 83721; 85025

== ENCOUNTER 2022-05-17 10:40 | Outpatient (CLI) | payer MEDICARE, OTHER ==
--- NOTE | 2022-05-18 15:24 | Mammography Report ---
UNILATERAL RIGHT DIGITAL DIAGNOSTIC MAMMOGRAM 3D/2D: 05/17/2022 CLINICAL: Patient returns today to evaluate a focal asymmetry in the right breast. Comparison is made to exams dated: 04/21/2022 mammogram - [facility], 03/20/2015 m ammogram, and 05/02/2013 mammogram - [facility]. The right breast is heterogeneously dense, which may obscure small masses (category c / 51-75% glandu lar tissue). There is a 0.8 cm focal asymmetry with a circumscribed margin in the right breast at 11 o'clock poste rior depth. There also is a 0.9 cm focal asymmetry with a circumscribed margin in the right breast central to the nipple posterior depth. No other significant masses or calcifications are seen in the breast. IMPRESSION: INCOMPLETE: NEEDS ADDITIONAL IMAGING EVALUATION The 0.8 cm focal asymmetry in the right breast at 11 o'clock posterior depth resembles a cyst and is indeterminate. The 0.9 cm focal asymmetry in the right breast central to the nipple posterior depth resembles a cyst and is indeterminate. An ultrasound is recommended. Based on the Tyrer Cuzick model (a risk assessment model) the patients lifetime risk is 2.9% and her 10 year risk is 0.0%. According to the ACR, ACS, and NCCN guidelines, an annual breast MRI exam shankar g with mammogram is recommended if the patients lifetime risk is 20% or greater. This exam was interpreted at Station ID: [id number]. NOTE: For mammograms, a report in lay terms will be sent to the patient. Approximately 15% of breast malignancies will not be visualized mammographically. In the management of a palpable breast mass, a negative mammogram must not discourage biopsy of a clinically suspicious lesion. Electronically Signed By: Willie Rodriguez M.D. slc/:05/17/2022 11:30:09 ACR BI-RADS Category 0: Incomplete 3340F PARENCHYMAL PATTERN: (D) - The breast(s) demonstrate(s) heterogeneously dense fibroglandular parenchy ma. BI-RADS CATEGORY: (0) - 0 Ultrasound [id number] Immediate follow-up LATERALITY: (B)
== END 2022-05-17 10:41 | disposition home or self-care (01) ==
LOC: DI 10:40
PROVIDERS: ATTEND Internal Medicine
DX: R92.8 Other abnormal and inconclusive findings on diagnostic imaging of breast (principal)

== ENCOUNTER 2022-05-22 15:29 | Outpatient (CLI) | payer MEDICARE, OTHER ==
--- NOTE | 2022-05-22 17:42 | MRI Report ---
PROCEDURE: ANKLE WO - LT INDICATIONS: TENDINITIS OF LEFT ACHILLES TENDON, ACUTE PAIN TECHNIQUE: Noncontrast coronal and sagittal T1 spin echo and STIR; axial T1 spin echo and T2 fast spin echo with fat saturation through the left ankle. COMPARISON: 05/20/2022 radiograph FINDINGS: Image quality: Good, slightly motion degraded Bones and Joints Tibiotalar joint: No fracture. Small effusion is noted at the lateral aspect of the joint. Midfoot and hindfoot: No significant degeneration or collapse. Possible chronic bone fragment/ossicle at the anterior process of the calcaneus. Small effusion is noted in the lateral aspect of the poste rior subtalar Talar dome: No osteochondral lesions. Medial structures Flexor tendons: PT, FDL, and FHL are intact. There is some mild surrounding edema. Deltoid ligaments: Visualized deep and superficial layers are intact. Mild edema of the PTT L. Spring complex: Mild edema around the distal attachment. Sinus tarsi: Preserved fat signal. Lateral structures Ligaments: ATFL, CF, and PTFL are intact. There is surrounding edema. Syndesmosis: Tibiofibular ligaments are intact. Syndesmosis is not pathologically widened (2mm). Ther e is some mild edema within the substance Peroneus tendons: Intact. . There is mild surrounding edema. Anterior structures Extensor tendons: Intact. Plantar and posterior structures Achilles: Near full-thickness defect in the distal tendon with surrounding edema. Plantar fascia: Some thickening is seen in the mid medial gland. Muscles: Mild plantar edema. Other tissues: No drainable abscess. Diffuse soft tissue swelling is present. IMPRESSION: Near full-thickness defect of the distal Achilles tendon with surrounding edema. There is adjacent ed diony in the pre-Achilles fat pad. Diffuse nonspecific soft tissue swelling and edema throughout the ankle, possibly secondarily involvi ng multiple tendons, joints, and ligaments as above. None of these collections appear acutely drainab le, although stability is overall indeterminate Thickening of the medial band of the plantar fascia. There is some nonspecific myositis within the pl franklyn foot musculature. Reviewed by: Raymond Daly MD on 05/22/2022 4:41 PM [place] Approved by: Raymond Daly MD on 05/22/2022 4:41 PM [place] Station ID: [id number]
== END 2022-05-22 15:30 | disposition home or self-care (01) ==
LOC: DI 15:29
PROVIDERS: ATTEND Internal Medicine
DX: M76.62 Achilles tendinitis, left leg (principal)

== ENCOUNTER 2022-06-08 13:26 | Outpatient (CLI) | payer MEDICARE, OTHER ==
--- NOTE | 2022-06-09 10:05 | Ultrasound Report ---
LIMITED ULTRASOUND OF RIGHT BREAST: 06/08/2022 CLINICAL: Patient returns today to evaluate a focal asymmetries in the right breast. Comparison is made to exams dated: 05/17/2022 mammogram, 04/21/2022 mammogram - [facility], 03/20/2015 mammogram, 05/02/2013 mammogram, 09/27/2011 mammogram, and 07/09/2010 mammogram - [facility]. Color flow ultrasound of the right breast 11 o'clock, and retroareolar regions was performed on the a reas of interest. Bobby scale images of the real-time examination were reviewed. There focal asymmetry seen on mammogram in the right breast at 9 o'clock posterior depth was not eval uated by ultrasound. The round mass in the right axillary hetal displays a well-defined boundary, internal echoes, and poste rior acoustic enhancement. THis likely corresponds with mammography. Additionally, there is an incidentally noted oval mass in the right breast at 3 o'clock in the retroa reolar region. IMPRESSION: INCOMPLETE: NEEDS ADDITIONAL IMAGING EVALUATION The focal asymmetry in the right breast at 9 o'clock posterior depth was not interrogated. Please no te, the patient left prior to the end of the exam, and refused to return. This lesion remains is ind eterminate. Immediate ultrasound recommended. The round mass in the right axillary tail likely represents a complicated cyst or a lymph node and is probably benign. 6 month follow up ultrasound and mammogram is recommended. The mass in the right breast at 3 o'clock in the retroareolar region is consistent with a fat lobule and is benign. This exam was interpreted at Station ID: [id number]. Electronically Signed By: Rekha Lobato M.D. lk/:06/08/2022 15:30:01 Ultrasound BI-RADS: 0 Indeterminate BI-RADS CATEGORY: (0) - 0 Ultrasound [id number] Immediate follow-up LATERALITY: (B)
== END 2022-06-08 13:27 | disposition home or self-care (01) ==
LOC: DI 13:26
PROVIDERS: ATTEND Internal Medicine
DX: R92.8 Other abnormal and inconclusive findings on diagnostic imaging of breast (principal)

== ENCOUNTER 2022-07-07 22:10 | Outpatient (CLI) | payer MEDICARE, OTHER ==
--- NOTE | 2022-07-08 11:37 | Ultrasound Report ---
PROCEDURE: Retroperitoneal ultrasound INDICATIONS: RECURRENT NEPHROLITHIASIS. Left flank pain. TECHNIQUE: Real-time scanning was performed of the retroperitoneal organs, with image documentation. COMPARISON: CT [facility] 11/23/2021. FINDINGS: Kidneys: Kidneys are normal in size. Right kidney measures 10.4 cm long; left kidney measures 11.3 cm long. Right renal cortical thickness is 1.4 cm; left renal cortical thickness is 1.5 cm. Nonobst ructing stones are visualized in both kidneys, for example a 1 cm stone at the right mid kidney, 1.2 cm stone right inferior kidney, 0.6 cm stone left inferior kidney. No hydronephrosis. No renal cortic al cysts identified. Bladder: Pre-void bladder volume is 179 mL. Post-void residual is 10 mL. Pre-void images demonstra te no intraluminal masses or stones. On pre-void images, both ureteral jets are noted with color Dop pler interrogation. (Of note, ureteral jets may not be detectable in up to 25% of cases due to insuf ficient differences in specific gravity between ureteral and bladder urine). IMPRESSION: 1. Nonobstructing nephrolithiasis present bilaterally. 2. No hydronephrosis. Reviewed by: Manny Fernandez MD on 07/08/2022 11:36 AM PST Approved by: Manny Fernandez MD on 07/08/2022 11:36 AM PST Station ID: [id number]
== END 2022-07-07 22:11 | disposition home or self-care (01) ==
LOC: DI 22:10
PROVIDERS: ATTEND Internal Medicine
DX: N20.0 Calculus of kidney (principal); R10.9 Unspecified abdominal pain; Z87.442 Personal history of urinary calculi

== ENCOUNTER 2022-07-19 09:04 | Outpatient (CLI) | payer MEDICARE, OTHER ==
[2022-07-19 09:28] LABS: CALCIUM 9.8 mg/dL (8.5-10.3); CREATININE 0.7 mg/dL (0.4-1.0); POTASSIUM 3.6 mmol/L (3.5-5.0)
[2022-07-19 13:15] LABS: ESTIMATED AVERAGE GLUCOSE 192 mg/dL (70-100); HEMOGLOBIN A1c% 8.3 % (4.27-6.07)
== END 2022-07-19 09:05 | disposition home or self-care (01) ==
LOC: LAB 09:04
PROVIDERS: ATTEND Orthopaedic Surgery Foot and Ankle Surgery
DX: E55.9 Vitamin D deficiency, unspecified (principal); E11.42 Type 2 diabetes mellitus with diabetic polyneuropathy; N20.0 Calculus of kidney
CPT/HCPCS: 36415; 80048; 81001; 82306; 83036; 87086

== ENCOUNTER 2022-07-29 14:40 | Outpatient (CLI) | payer MEDICARE, OTHER ==
--- NOTE | 2022-07-29 16:28 | XRAY Report ---
PROCEDURE: Cervical Spine Complete INDICATIONS: RADICULOPATHY, CERVICAL REGION, FUSION OF SPINE, L TECHNIQUE: 6 views of the cervical spine acquired. COMPARISON: MRI cervical spine 10/12/2016 FINDINGS: Bones: No fractures or dislocations to the C6 level. Grade 1 anterolisthesis C3 on 4 and grade 1 ant erolisthesis C4 on 5. Trace retrolisthesis C5 on 6. There is prominent facet arthropathy and sclerosi s from C3 through C5. Severe disc height loss C5-6 and C4-5, and moderate disc height loss C3-4. Endp late osteophytes, facet arthropathy, and spondylolisthesis result in bilateral foraminal narrowing, m ost severe at C4-5 left greater than right. Soft tissues: No prevertebral soft tissue swelling. IMPRESSION: 1. Multilevel degeneration and spondylolisthesis, may be slightly progressed compared to the MRI from 2017. Reviewed by: Dawna Schreiber MD on 07/29/2022 4:27 PM PST Approved by: Dawna Schreiber MD on 07/29/2022 4:27 PM PST Station ID: [id number]
--- NOTE | 2022-07-29 16:31 | XRAY Report ---
PROCEDURE: Lumbar Spine Complete INDICATIONS: RADICULOPATHY, CERVICAL REGION, FUSION OF SPINE, L TECHNIQUE: 4 views of the lumbar spine were acquired. COMPARISON: 10/13/2020 FINDINGS: Bones: 5 [id number] vertebrae are present. Posterior fusion hardware from L2 through S1 with in tervertebral spacers at L3-4, L4-5, and L5-S1. No change in hardware position. Stable trace retrolist hesis L2-3, grade 1 retrolisthesis L3-4, trace anterolisthesis L4-5, both stable. No vertebral body c ompression fractures. No suspicious bony lesions. Soft tissues: Overlying bowel gas pattern is normal. No suspicious soft tissue calcifications. IMPRESSION: 1. Stable bone alignment post lumbosacral fusion. 2. No progression of degenerative changes or spondylolisthesis.. Reviewed by: Dawna Schreiber MD on 07/29/2022 4:30 PM PST Approved by: Dawna Schreiber MD on 07/29/2022 4:30 PM PST Station ID: [id number]
== END 2022-07-29 14:41 | disposition home or self-care (01) ==
LOC: DI 14:40
PROVIDERS: ATTEND Family Medicine
DX: M47.812 Spondylosis without myelopathy or radiculopathy, cervical region (principal); M43.12 Spondylolisthesis, cervical region; M43.16 Spondylolisthesis, lumbar region; Z98.1 Arthrodesis status

== ENCOUNTER 2022-10-06 15:34 | Outpatient (CLI) | payer MEDICARE, OTHER ==
[2022-10-06 16:19] LABS: CREATININE 0.7 mg/dL (0.4-1.0)
--- NOTE | 2022-10-07 15:47 | MRI Report ---
PROCEDURE: THORACIC SPINE W/WO INDICATIONS: THORACIC BACK PAIN, LUMBAR BACK PAIN CONTRAST: gadavist 8.2ml TECHNIQUE: Noncontrast sagittal T1 spin echo and T2 fast spin echo, sagittal STIR, axial T1 and T2 fast spin ech o through the thoracic spine. After the administration of contrast, axial and sagittal T1 spin echo with fat saturation through the thoracic spine. COMPARISON: MRI lumbar spine 10/06/2022, 08/31/2018, MRI of thoracic spine 10/12/2016 FINDINGS: Image quality: Excellent. Alignment and curvature: There is normal bony alignment. Posterior fusion cy is noted at L2. Marrow : Marrow is of normal overall signal. Reactive endplate changes are present T10-11. No acute vertebr al body compression fractures. Spinal cord: Visualized spinal cord is of normal signal and size, without abnormal enhancement. Paraspinous soft tissues: No paravertebral masses or abnormal enhancement. Miscellaneous: No significant foraminal narrowing. Multilevel moderate to severe disc desiccation is present most significant from T5-6 through T10-11. As identified on prior exam, multilevel minimal s cattered disc bulges are present. There is very minimal canal narrowing at T3-4, T4-5, T5-6, T7-8, mo derate T10-11. It is slightly progressive T10-11. There is prominent loss of disc height at T10-11 wi th increased signal in the disc space. There is mild patchy appearance of enhancement within the T10- T11 vertebral bodies. IMPRESSION: Multilevel degenerative changes as above. Interval appearance of increased disc signal at T10-11 with patchy areas of enhancement within the T1 0 and T11 vertebral bodies. While this is suspected to be textile machinery sales representative of inflammatory degenerative change, recommend correlation to patient's symptoms as well as laboratory values as a developing dis citis/osteomyelitis cannot be definitively excluded. Interval follow-up imaging after appropriate the rapy may be obtained as clinically indicated. Reviewed by: Jacinda Marks MD on 10/07/2022 3:45 PM PDT Approved by: Jacinda Marks MD on 10/07/2022 3:45 PM PDT Station ID: [id number]
--- NOTE | 2022-10-08 17:34 | MRI Report ---
PROCEDURE: LUMBAR SPINE W/WO INDICATIONS: THORACIC BACK PAIN, LUMBAR BACK PAIN CONTRAST: gadavist 8.2ml TECHNIQUE: Noncontrast sagittal T1 spin echo and T2 fast spin echo, sagittal STIR, axial T1 and T2 fast spin ech o through the lumbar spine. In cases with scoliosis, additional coronal T2 fast spin echo may be per formed. After the administration of contrast, sagittal and axial T1 spin echo with fat saturation th rough the lumbar spine. COMPARISON: Lumbar spine CT 12/28/2019, MRI 08/31/2018, MRI thoracic spine FINDINGS: Image quality: Excellent. Alignment and curvature: There is posterior fusion from L2 through S1 is present. Trace retrolisthes is of L3 on L4 is again noted slightly less prominent when compared to prior exam. Marrow: Marrow is of normal overall signal. Reactive endplate changes as well as increased signal w ithin the disc space at T10-11 is present. No acute vertebral body compression fractures. No suspici ous marrow enhancement. Spinal cord: Conus medullaris terminates at the L1 level. Visualized spinal cord demonstrates dalton l signal, without suspicious enhancement. Paraspinous soft tissues: No paravertebral masses or abnormal enhancement. Postoperative seroma is again noted. L1-L2: No disc bulge, spinal stenosis or foraminal narrowing. Facet and ligamentum flavum hypertro phy are present. No interval progression. L2-L3: Postsurgical changes. Mild disc bulge with mild spinal stenosis. Minimal to mild bilateral foraminal narrowing similar versus early progressive compared to prior exam taking into account artif act. Facet and ligamentum flavum hypertrophy are present. L3-L4: Postsurgical changes. No gross spinal stenosis. Mild left and right foraminal narrowing stab le. L4-L5: Postsurgical changes. No gross spinal stenosis. Mild bilateral foraminal narrowing relativel y under changed. L5-S1: Postsurgical changes are present. Minimal to mild spinal stenosis is relatively stable. Ther e is suspected to be likely moderate bilateral foraminal narrowing difficult to compare prior exam se condary to artifact. IMPRESSION: Multilevel postsurgical and degenerative changes as noted above. As noted on thoracic spine MRI, there is increased endplate changes and disc signal at T10-11. Please see MR thoracic spine report for further details. Reviewed by: Jacinda Marks MD on 10/08/2022 5:33 PM PDT Approved by: Jacinda Marks MD on 10/08/2022 5:33 PM PDT Station ID: [id number]
== END 2022-10-06 15:35 | disposition home or self-care (01) ==
LOC: LAB 15:34
PROVIDERS: ATTEND Internal Medicine
DX: M96.1 Postlaminectomy syndrome, not elsewhere classified (principal); M47.24 Other spondylosis with radiculopathy, thoracic region
CPT/HCPCS: 36415; 82565

== ENCOUNTER 2022-10-06 15:35 | Outpatient (CLI) | payer MEDICARE, OTHER ==
[~2022-10-06 15:35] MED LIST: GADOBUTROL 10 MMOL/10 ML VIAL ONE
--- NOTE | 2022-10-06 17:07 | CT Report ---
PROCEDURE: CHEST WO INDICATIONS: PULMONARY NODULE TECHNIQUE: Noncontrast 1mm axial images were acquired from the pulmonary apices to the posterior costophrenic an gles. Axial 5 mm soft tissue kernel reconstructions were performed as well as 8 mm axial MIP and cor onal and sagittal 5 mm reformations. For radiation dose reduction, the following was used: automate d exposure control, adjustment of mA and/or kV according to patient size. COMPARISON: 12/30/2021, 04/02/2020 FINDINGS: Image quality: Suboptimal. There is respiratory motion in the lungs.. Lungs and pleura: No consolidation. No pleural effusions. No pneumothorax. 1.3 cm predominantly grou ndglass lung nodule in the infrahilar left lower lobe, 4/170, relatively stable compared to a study g reater than 2 years ago. No significant increase in solid component which remains punctate in size, t oo small to measure. No new lung nodules. Central and peripheral airways are normal. Mediastinum: Heart size is normal. No pericardial effusions. No mediastinal adenopathy by size criter ia. No large vessel abnormality. Normal esophagus without hiatal hernia. Chest wall and lower neck: Thyroid is unremarkable. No axillary or supraclavicular adenopathy by size . Bones: Severe degenerative mixed lytic and sclerotic endplate changes along with partial ankylosis th roughout the spine. Partially imaged lumbar fusion hardware. No suspicious bone lesions. Upper Abdomen: Partially imaged nonobstructing right upper pole intrarenal calculus. Visible portions of upper abdominal organs are otherwise normal. IMPRESSION: 1. Relatively stable groundglass left lower lobe lung nodule. Given differential diagnosis of adenoca rcinoma in situ, continued follow-up until greater than 5 years stability is reached. Reviewed by: Dawna Schreiber MD on 10/06/2022 5:06 PM PDT Approved by: Dawna Schreiber MD on 10/06/2022 5:06 PM PDT Station ID: [id number]
[2022-10-06] MEDS ORDERED: GADOBUTROL 10 MMOL/10 ML VIAL IVP ONE (18:35)
== END 2022-10-06 15:36 | disposition home or self-care (01) ==
LOC: DI 15:35
PROVIDERS: ATTEND Family Medicine
DX: R91.1 Solitary pulmonary nodule (principal); M96.1 Postlaminectomy syndrome, not elsewhere classified; M47.24 Other spondylosis with radiculopathy, thoracic region
CPT/HCPCS: 36415; 71250; 72157; 72158; 82565; A9585

== ENCOUNTER 2022-12-17 11:12 | Outpatient (CLI) | payer MEDICARE, OTHER ==
--- NOTE | 2022-12-17 12:17 | XRAY Report ---
PROCEDURE: Ankle 3 View LT INDICATIONS: LT FOOT/ANKLE PAIN TECHNIQUE: 3 views of the ankle were acquired. COMPARISON: X-ray foot 12/17/2022, x-ray ankle 10/21/2021. FINDINGS: Bones: No fractures or dislocations. Ankle mortise is normally aligned. No suspicious bony lesions . Soft tissues: Ankle edema. Achilles tendon appears normal. IMPRESSION: No visualized acute fracture or dislocation. However, occult injury cannot be excluded. Recommend malena rt interval imaging follow-up in 7-10 days as clinically indicated for additional evaluation. Reviewed by: Jacinda Marks MD on 12/17/2022 12:16 PM PDT Approved by: Jacinda Marks MD on 12/17/2022 12:16 PM PDT Station ID: [id number]
--- NOTE | 2022-12-17 12:18 | XRAY Report ---
PROCEDURE: Foot 3 View LT INDICATIONS: LT FOOT/ANKLE PX TECHNIQUE: 3 views of the foot were acquired. COMPARISON: X-ray ankle 12/17/2022, x-ray ankle 10/04/2021 FINDINGS: Bones: No fractures or dislocations. No suspicious bony lesions. IP degenerative narrowing. Soft tissues: No suspicious soft tissue calcifications or masses. IMPRESSION: No visualized acute fracture or dislocation. However, occult injury cannot be excluded. Recommend malena rt interval imaging follow-up in 7-10 days as clinically indicated for additional evaluation.. IP art hritic change. Reviewed by: Jacinda Marks MD on 12/17/2022 12:17 PM PDT Approved by: Jacinda Marks MD on 12/17/2022 12:17 PM PDT Station ID: [id number]
== END 2022-12-17 11:13 | disposition home or self-care (01) ==
LOC: DI 11:12
PROVIDERS: ATTEND Family Medicine
DX: M21.962 Unspecified acquired deformity of left lower leg (principal); M79.672 Pain in left foot

== ENCOUNTER 2023-01-12 08:02 | Outpatient (CLI) | payer MEDICARE, OTHER ==
[2023-01-12 08:16] LABS: BASOPHILS # (AUTO) 0.1 10^3/uL (0.0-0.1); BASOPHILS % (AUTO) 1.3 %; EOSINOPHILS # (AUTO) 0.5 10^3/uL (0.0-0.7); EOSINOPHILS % (AUTO) 7.6 %; HCT - HEMATOCRIT 42.3 % (37.0-47.0); HGB - HEMOGLOBIN 13.9 g/dL (12.0-16.0); LYMPHOCYTES # (AUTO) 3.4 10^3/uL (1.5-3.5); LYMPHOCYTES % (AUTO) 48.7 %; MEAN CORPUSCULAR HEMOGLOBIN 29.4 pg (27.0-31.0); MEAN CORPUSCULAR HGB CONC 32.9 g/dL (32.0-36.0); MEAN CORPUSCULAR VOLUME 89.6 fL (81.0-99.0); MEAN PLATELET VOLUME 10.7 fL (7.9-10.8); MONOCYTES # (AUTO) 0.7 10^3/uL (0.0-1.0); MONOCYTES % (AUTO) 9.5 %; NEUTROPHILS # (AUTO) 2.3 10^3/uL (1.5-6.6); NEUTROPHILS % (AUTO) 32.8 %; PLT - PLATELET COUNT 226 10^3/uL (130-450); RED BLOOD COUNT 4.72 10^6/uL (4.20-5.40); RED CELL DISTRIBUTION WIDTH 13.3 % (12.0-15.0); WHITE BLOOD COUNT 7.1 x10^3/uL (4.8-10.8)
[2023-01-12 08:30] LABS: ALBUMIN 4.2 g/dL (3.2-5.5); ALBUMIN/GLOBULIN RATIO 1.6 (1.0-2.2); ALKALINE PHOSPHATASE 64 IU/L (42-121); ALT ALANINE AMINOTRANSFERASE 18 IU/L (10-60); AST ASPARTATE AMINOTRANSFERASE 22 IU/L (10-42); BILIRUBIN,TOTAL 0.6 mg/dL (0.2-1.0); BUN - BLOOD UREA NITROGEN 19 mg/dL (6-20); CALCIUM 9.8 mg/dL (8.5-10.3); CARBON DIOXIDE - CO2 32 mmol/L (21-32); CHLORIDE 107 mmol/L (101-111); CHOL/HDL RATIO 3.1 (<4.4); CHOLESTEROL 132 mg/dL; CREATININE 0.7 mg/dL (0.6-1.3); GFR - MDRD 81 (>89); GLUCOSE 106 mg/dL (74-104); HDL CHOLESTEROL 43 mg/dL; LDL CHOLESTEROL,CALCULATED 56 mg/dL; LDL/HDL RATIO 1.3 (<4.4); POTASSIUM 3.9 mmol/L (3.5-4.5); SODIUM 139 mmol/L (135-145); TOTAL PROTEIN 6.8 g/dL (6.4-8.9); TRIGLYCERIDES 163 mg/dL (48-352); VLDL CHOLESTEROL 33 mg/dL
[2023-01-12 10:52] LABS: ESTIMATED AVERAGE GLUCOSE 192 mg/dL (70-100); HEMOGLOBIN A1c% 8.3 % (4.27-6.07)
[2023-01-14 15:14] LABS: CREATININE,URINE 120.3 mg/dL; MICROALBUM/CREATININE RATIO,UR 37.4 ug/mg (<30.0); MICROALBUMIN,URINE 4.5 mg/dL
== END 2023-01-12 08:03 | disposition home or self-care (01) ==
LOC: LAB 08:02
PROVIDERS: ATTEND Internal Medicine
DX: E11.42 Type 2 diabetes mellitus with diabetic polyneuropathy (principal); E78.5 Hyperlipidemia, unspecified
CPT/HCPCS: 36415; 80053; 80061; 82043; 82570; 83036; 83721; 85025

== ENCOUNTER 2023-04-12 09:41 | Outpatient (CLI) | payer MEDICARE, OTHER ==
[2023-04-12 10:05] LABS: BASOPHILS # (AUTO) 0.1 10^3/uL (0.0-0.1); BASOPHILS % (AUTO) 1.6 %; EOSINOPHILS # (AUTO) 0.5 10^3/uL (0.0-0.7); EOSINOPHILS % (AUTO) 9.4 %; HCT - HEMATOCRIT 45.8 % (37.0-47.0); LYMPHOCYTES # (AUTO) 2.3 10^3/uL (1.5-3.5); LYMPHOCYTES % (AUTO) 40.5 %; MEAN CORPUSCULAR HEMOGLOBIN 28.9 pg (27.0-31.0); MEAN CORPUSCULAR HGB CONC 32.8 g/dL (32.0-36.0); MEAN CORPUSCULAR VOLUME 88.2 fL (81.0-99.0); MEAN PLATELET VOLUME 10.8 fL (7.9-10.8); MONOCYTES # (AUTO) 0.5 10^3/uL (0.0-1.0); MONOCYTES % (AUTO) 8.6 %; NEUTROPHILS # (AUTO) 2.3 10^3/uL (1.5-6.6); NEUTROPHILS % (AUTO) 39.7 %; PLT - PLATELET COUNT 254 10^3/uL (130-450); RED BLOOD COUNT 5.19 10^6/uL (4.20-5.40); RED CELL DISTRIBUTION WIDTH 12.9 % (12.0-15.0); WHITE BLOOD COUNT 5.7 x10^3/uL (4.8-10.8)
[2023-04-12 10:18] LABS: CALCIUM 9.7 mg/dL (8.5-10.3); CREATININE 0.8 mg/dL (0.6-1.3)
[2023-04-12 10:47] LABS: ESTIMATED AVERAGE GLUCOSE 209 mg/dL (70-100); HEMOGLOBIN A1c% 8.9 % (4.27-6.07)
--- NOTE | 2023-04-12 16:22 | XRAY Report ---
PROCEDURE: Shoulder 2 View LT INDICATIONS: OSTEOARTHRITIS TECHNIQUE: 2 views of the shoulder were acquired. COMPARISON: None. FINDINGS: Bones: No fractures or dislocations. No suspicious bony lesions. Visualized ribs appear intact. Humeral joint degenerative change. Soft tissues: No suspicious soft tissue calcifications. The visualized lungs are within normal limi ts. IMPRESSION: Degenerative change. No acute bony abnormality. If pain persists with conservative management, consid er repeat radiographs in 10-14 days or cross-sectional imaging. Reviewed by: Suleman Zhu MD on 04/12/2023 4:21 PM PST Approved by: Suleman Zhu MD on 04/12/2023 4:21 PM PST Station ID: [id number]
[2023-04-13 07:10] LABS: HIV SCREEN 4TH GENERATION Non Reactive (Non Reactive)
== END 2023-04-12 09:42 | disposition home or self-care (01) ==
LOC: DI 09:41
PROVIDERS: ATTEND Internal Medicine
DX: M19.012 Primary osteoarthritis, left shoulder (principal); R61 Generalized hyperhidrosis; E11.40 Type 2 diabetes mellitus with diabetic neuropathy, unspecified
CPT/HCPCS: 36415; 73030; 80048; 83036; 85025; 86480; G0475; 81599; 87389

== ENCOUNTER 2023-04-14 08:00 | Outpatient (CLI) | payer MEDICARE, OTHER | END 2023-04-14 23:59 | disposition home or self-care (01) | LOC: LAB.R 08:00 | PROVIDERS: ATTEND Internal Medicine | DX: R61 Generalized hyperhidrosis (principal) | CPT/HCPCS: 81599; 82384; 83835 ==

== ENCOUNTER 2023-04-18 08:00 | Outpatient (CLI) | payer MEDICARE, OTHER | END 2023-04-18 23:59 | disposition home or self-care (01) | LOC: LAB 08:00 | PROVIDERS: ATTEND Internal Medicine | DX: R61 Generalized hyperhidrosis (principal) | CPT/HCPCS: 81599; 83497 ==

== ENCOUNTER 2023-04-18 13:02 | Outpatient (CLI) | payer MEDICARE, OTHER | END 2023-04-18 13:03 | disposition home or self-care (01) | LOC: LAB 13:02 | PROVIDERS: ATTEND Internal Medicine | DX: R61 Generalized hyperhidrosis (principal) ==

== ENCOUNTER 2023-05-10 08:38 | Outpatient (CLI) | payer MEDICARE, OTHER | END 2023-05-10 08:39 | disposition home or self-care (01) | LOC: LAB.R 08:38 | PROVIDERS: ATTEND Internal Medicine | DX: R61 Generalized hyperhidrosis (principal); M76.11 Psoas tendinitis, right hip; R91.1 Solitary pulmonary nodule; Z22.7 Latent tuberculosis | CPT/HCPCS: 81599 ==

== ENCOUNTER 2023-05-11 08:24 | Outpatient (CLI) | payer MEDICARE, OTHER | END 2023-05-11 08:25 | disposition home or self-care (01) | LOC: LAB.R 08:24 | PROVIDERS: ATTEND Internal Medicine | DX: Z22.7 Latent tuberculosis (principal); R61 Generalized hyperhidrosis | CPT/HCPCS: 81599 ==

== ENCOUNTER 2023-05-16 11:27 | Outpatient (CLI) | payer MEDICARE, OTHER | END 2023-05-16 11:28 | disposition home or self-care (01) | LOC: LAB.R 11:27 | PROVIDERS: ATTEND Family Medicine | DX: G89.4 Chronic pain syndrome (principal) ==

== ENCOUNTER 2023-05-16 11:29 | Outpatient (CLI) | payer MEDICARE, OTHER | END 2023-05-16 11:30 | disposition home or self-care (01) | LOC: LAB.R 11:29 | PROVIDERS: ATTEND Internal Medicine | DX: R61 Generalized hyperhidrosis (principal); Z22.7 Latent tuberculosis | CPT/HCPCS: 81599 ==

== ENCOUNTER 2023-05-25 09:29 | Outpatient (CLI) | payer MEDICARE, OTHER | END 2023-05-25 09:30 | disposition home or self-care (01) | LOC: LAB.R 09:29 | PROVIDERS: ATTEND Internal Medicine | DX: Z22.7 Latent tuberculosis (principal); R61 Generalized hyperhidrosis; M76.11 Psoas tendinitis, right hip; R91.1 Solitary pulmonary nodule | CPT/HCPCS: 81599 ==

== ENCOUNTER 2023-06-20 10:24 | Outpatient (CLI) | payer MEDICARE, OTHER ==
[2023-06-20 10:50] LABS: ESTIMATED AVERAGE GLUCOSE 209 mg/dL (70-100); HEMOGLOBIN A1c% 8.9 % (4.27-6.07)
[2023-06-20 11:14] LABS: CALCIUM 9.6 mg/dL (8.5-10.3); CREATININE 0.7 mg/dL (0.6-1.3); POTASSIUM 3.9 mmol/L (3.5-4.5)
== END 2023-06-20 10:25 | disposition home or self-care (01) ==
LOC: LAB 10:24
PROVIDERS: ATTEND Internal Medicine
DX: E11.42 Type 2 diabetes mellitus with diabetic polyneuropathy (principal)
CPT/HCPCS: 36415; 80048; 83036

== ENCOUNTER 2023-06-24 06:48 | Emergency (ER) | payer MEDICARE, OTHER ==
[2023-06-24 07:08] VITALS: BP 119/86; O2SAT 97
--- NOTE | 2023-06-24 07:15 | ED Physician Documentation ---
History of Present Illness - Stated complaint Stated Complaint: LT SIDE PX - Chief complaint Chief Complaint: General - History obtained from History obtained from: Patient - Additonal information Additional information: 78-year-old woman with diabetes, COPD on oxygen, History of extensive spinal surgeries, and chronic back pain for which she takes buprenorphine presents with left-sided flank and back pain starting last night while rolling over in bed. This is nothing she is ever had before. It is worse if she lays on her left side or moves. Nothing makes it better, although it is tolerable now after taking one of her usual buprenorphine. She denies nausea, fevers, urinary complaints, problems with bowel movements, shortness of breath. 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 : Kidney stones HEENT: None Psych: None Musculoskeletal: Osteoarthritis, Chronic back pain Derm: None - Past Surgical History Past Surgical History: Yes General: Other Ortho: Hip replacement, Spine surgery - Present Medications Home Medications: Ambulatory Orders Medication Instructions Recorded Confirmed Calcium Carbonate [Calcium] See Rx Instructions .ROUTE .COMPLEX 04/19/22 04/21/22 Cholecalciferol (Vitamin D3) See Rx Instructions .ROUTE .COMPLEX 04/19/22 04/21/22 [Vitamin D3] Collagen/Biotin/Ascorbic Acid See Rx Instructions .ROUTE .COMPLEX 04/19/22 04/21/22 [Collagen 1500 Plus C Capsule] Glimepiride See Rx Instructions .ROUTE .COMPLEX 04/19/22 04/21/22 Insulin Lispro Protamin/Lispro See Rx Instructions .ROUTE .COMPLEX 04/19/22 04/21/22 [Humalog Mix 50-50 Kwikpen] Ipratropium/Albuterol [Combivent See Rx Instructions .ROUTE .COMPLEX 04/19/22 04/21/22 Respimat] Loratadine [Claritin] See Rx Instructions .ROUTE .COMPLEX 04/19/22 04/21/22 Meloxicam, Submicronized See Rx Instructions .ROUTE .COMPLEX 04/19/22 04/21/22 [Meloxicam] Mirtazapine See Rx Instructions .ROUTE .COMPLEX 04/19/22 04/21/22 Multivit-Min/Iron/Folic/Lutein See Rx Instructions .ROUTE .COMPLEX 04/19/22 04/21/22 [Multivitamin Women 50 Plus Tab] Pravastatin [Pravachol] See Rx Instructions .ROUTE .COMPLEX 04/19/22 04/21/22 SITagliptin [Januvia] See Rx Instructions .ROUTE .COMPLEX 04/19/22 04/21/22 buprenorphine HCL [Buprenorphine See Rx Instructions .ROUTE .COMPLEX 04/19/22 04/21/22 HCl] estradioL [Estradiol] See Rx Instructions .ROUTE .COMPLEX 04/19/22 04/21/22 medroxyPROGESTERone [Provera] See Rx Instructions .ROUTE .COMPLEX 04/19/22 04/21/22 - Allergies Allergies/Adverse Reactions: Allergies Allergy/AdvReac Type Severity Reaction Status Date / Time No Known Drug Allergies Allergy Verified 06/24/23 07:15 - Social History Does the pt smoke?: No Smoking Status: Never smoker Does the pt drink ETOH?: No Does the pt have substance abuse?: No - Immunizations Immunizations are current?: Yes - POLST Patient has POLST: No PD ED PE NORMAL - Vitals Vital signs reviewed: Yes - General General: Alert and oriented X 3, Other (She is comfortable laying on her right side but winces with motion or other movements.) - Cardiac Cardiac: RRR, No murmur - Respiratory Respiratory: No respiratory distress, Clear bilaterally - Abdomen Abdomen: Normal bowel sounds, Soft, Other (Very mild left upper quadrant tenderness) - Back Back: Other (No midline spinal tenderness. She does have some tenderness over the left flank and lateral ribs.) - Extremities Extremities: No deformity, No tenderness to palpate, Normal ROM s pain, No edema, No calf tenderness / cord - Neuro Neuro: Alert and oriented X 3, No motor deficit, No sensory deficit, Normal speech Eye Opening: Spontaneous Motor: Obeys Commands Verbal: Oriented GCS Score: 15 - Psych Psych: Normal mood, Normal affect Results - Vitals Vitals: Vital Signs - 24 hr 06/24/23 07:01 Temperature 37.1 C Heart Rate 74 Respiratory 17 Rate Blood Pressure 119/86 H O2 Saturation 97 Oxygen O2 Source Nasal cannula - Labs Labs: Laboratory Tests 06/24/23 06/24/23 07:28 07:28 WBC 9.0 RBC 4.58 Hgb 13.5 Hct 40.1 MCV 87.6 MCH 29.5 MCHC 33.7 RDW 13.4 Plt Count 202 MPV 10.6 Neut # (Auto) 6.2 Lymph # (Auto) 1.5 Stone # (Auto) 0.7 Eos # (Auto) 0.5 Baso # (Auto) 0.1 Absolute Nucleated RBC 0.00 Nucleated RBC % 0.0 Sodium 142 Potassium 3.8 Chloride 108 Carbon Dioxide 29 Anion Gap 5.0 L BUN 13 Creatinine 0.7 Estimated GFR (MDRD) 81 L Glucose 164 H Calcium 9.5 - Rads (name of study) CT abdomen and pelvis demonstrating cholelithiasis and nonobstructing renal calculi. Relevant Findings:: Final report received, EMP independent interpretation of test CT chest demonstrating stable left lower lobe groundglass opacity still needing follow-up through 2024. Relevant Findings:: Final report received, EMP independent interpretation of test PD Medical Decision Making - ED course ED course: 78-year-old woman presents with left back pain, seems muscular by history and physical, differential diagnosis would include vascular emergency, kidney stone, occult fracture, or intra-abdominal emergency. She already has outpatient CTs ordered for her chest abdomen and pelvis by Dr. Sanders and she would like to complete these here. This is not unreasonable given the above differential. CBC, BMP unremarkable save mild hyperglycemia. On reevaluation prior to discharge she says she is now pain-free. Because her pain was not completely clear, but it seems that the emergencies have been ruled out. She declined further needs or questions. We did discuss the need for further follow-up on the stable groundglass left lower lobe nodule but at this point the stability seems reassuring. Departure - Departure Disposition: 01 Home, Self Care Clinical Impression: Left-sided back pain Condition: Good Record reviewed to determine appropriate education?: Yes Instructions: ED Neck Back Pain General Comments: This pain seems muscular. Because of your history we did extensive testing. You do have a stable left lower lobe pulmonary nodule. The radiologist feels it does need further follow-up through 2024, you can arrange this with Dr. Sanders.+ Call your doctor to arrange a follow-up appointment, make the next available appointment. In the interim, return anytime if worse or if new symptoms develop. CT Chest: Stable appearance of groundglass nodule in the left lower lobe since 2019. As previously noted, given adenocarcinoma in situ is considered to differential, follow-up imaging is recommended until 5 years stability is achieved. Ct Abd/Pelvis: CT Chest: Stable appearance of groundglass nodule in the left lower lobe since 2020. As previously noted, given adenocarcinoma in situ is considered to differential, follow-up imaging is recommended until 5 years stability is achieved. Forms: PCP List Discharge Date/Time: 06/24/23 09:21
[2023-06-24 07:35] LABS: BASOPHILS # (AUTO) 0.1 10^3/uL (0.0-0.1); BASOPHILS % (AUTO) 0.9 %; EOSINOPHILS # (AUTO) 0.5 10^3/uL (0.0-0.7); EOSINOPHILS % (AUTO) 5.4 %; HCT - HEMATOCRIT 40.1 % (37.0-47.0); HGB - HEMOGLOBIN 13.5 g/dL (12.0-16.0); LYMPHOCYTES # (AUTO) 1.5 10^3/uL (1.5-3.5); LYMPHOCYTES % (AUTO) 16.5 %; MEAN CORPUSCULAR HEMOGLOBIN 29.5 pg (27.0-31.0); MEAN CORPUSCULAR HGB CONC 33.7 g/dL (32.0-36.0); MEAN CORPUSCULAR VOLUME 87.6 fL (81.0-99.0); MEAN PLATELET VOLUME 10.6 fL (7.9-10.8); MONOCYTES # (AUTO) 0.7 10^3/uL (0.0-1.0); MONOCYTES % (AUTO) 7.5 %; NEUTROPHILS # (AUTO) 6.2 10^3/uL (1.5-6.6); NEUTROPHILS % (AUTO) 69.4 %; PLT - PLATELET COUNT 202 10^3/uL (130-450); RED BLOOD COUNT 4.58 10^6/uL (4.20-5.40); RED CELL DISTRIBUTION WIDTH 13.4 % (12.0-15.0)
[2023-06-24] MEDS ORDERED: iohexoL-300 100 ML VIAL ONE (07:38)
[2023-06-24 07:47] LABS: CALCIUM 9.5 mg/dL (8.5-10.3); CREATININE 0.7 mg/dL (0.6-1.3); POTASSIUM 3.8 mmol/L (3.5-4.5)
[2023-06-24] MEDS ORDERED: iohexoL-300 100 ML VIAL IVP ONE (08:00)
--- NOTE | 2023-06-24 08:32 | CT Report ---
PROCEDURE: Chest W INDICATIONS: pulm nodule, back pain CONTRAST: 100ml omni 300 TECHNIQUE: After the administration of intravenous contrast, a CT scan of the chest was performed. Images were recorded and evaluated at appropriate window settings. Reformats: axial MIP of the chest, coronal and sagittal. For radiation dose reduction, the following was used: automated exposure control, adjustme nt of mA and/or kV according to patient size. COMPARISON: Chest CT 10/06/2022, 04/02/2020 FINDINGS: Image quality: Excellent. Lungs and pleura: Previously identified left lower lobe groundglass pulmonary nodule seen on series 4 image 61 is unchanged in size measuring approximately 1.3 cm. No pleural effusions. No pneumothorax . No suspicious pulmonary nodules which require follow up. Mediastinum: Heart size is normal. No pericardial effusion. No large vessel abnormality. No mediastin al adenopathy by size criteria. Chest wall and lower neck: Thyroid is unremarkable. No axillary or supraclavicular adenopathy by size . Bones: No aggressive osseous abnormality. Partially visualized thoracolumbar fusion. Multilevel degen erative changes are present. Upper Abdomen: Mild thickening of the left adrenal gland, unchanged. IMPRESSION: Stable appearance of groundglass nodule in the left lower lobe since 2019. As previously noted, given adenocarcinoma in situ is considered to differential, follow-up imaging is recommended until 5 years stability is achieved. Reviewed by: Jacinda Marks MD on 06/24/2023 8:30 AM [facility] Approved by: Jacinda Marks MD on 06/24/2023 8:30 AM PST Station ID: [id number]
--- NOTE | 2023-06-24 08:39 | CT Report ---
PROCEDURE: Abdomen/Pelvis W INDICATIONS: pulm nodule, back pain CONTRAST: 100ml omni 300 TECHNIQUE: After the administration of intravenous contrast, a CT scan of the abdomen and pelvis was performed. Images were recorded and evaluated at appropriate window settings. Reformats: coronal and sagittal. F or radiation dose reduction, the following was used: automated exposure control, adjustment of mA and /or kV according to patient size. COMPARISON: CT abdomen pelvis 12/03/2021 FINDINGS: Image quality: There is limited visualization of the pelvis secondary to artifact from hip arthroplas ty. Lung bases and heart: Please see CT chest report of 06/24/2023 regarding left lower lobe groundglass n odule. Liver: No solid mass. Hepatic steatosis. Gallbladder and biliary tree: Minimal dependent luminal calcifications without wall thickening. Spleen: No splenomegaly. Pancreas: No pancreatic ductal dilation. Adrenals: Minimal appearance of left adrenal thickening. Kidneys and ureters: No hydronephrosis. No renal cystic lesion which requires follow up. No solid mas s. Nonobstructing bilateral renal calculi the largest is in the inferior right renal pole measuring 1 .1 cm, Hounsfield units 1565. Distal right ureter is obscured secondary to metallic streak artifact f rom right hip arthroplasty. Bowel and peritoneum: No bowel distension. No pathologic free fluid. Lymph nodes: No central or retroperitoneal adenopathy. Vessels: No infrarenal aortic aneurysm. PELVIS Reproductive organs: Multiple calcifications are present within the uterus consistent with fibroid. Bladder: No abnormal wall thickening, accounting for underdistention. Pelvic lymph nodes: No pelvic adenopathy by size criteria. Bones: No aggressive osseous abnormality. L2-S1 lumbar fusion. Multilevel degenerative changes. Right hip arthroplasty. Other: No significant ventral or inguinal hernia. Unchanged left abdominal wall lipoma. IMPRESSION: Groundglass left lower lobe pulmonary nodule. Please see CT chest report of 06/24/2023 for further dis cussion. Minimal cholelithiasis without wall thickening. Bilateral nonobstructing renal calculi. Reviewed by: Jacinda Marks MD on 06/24/2023 8:37 AM PST Approved by: Jacinda Marks MD on 06/24/2023 8:37 AM PST Station ID: [id number]
== END 2023-06-24 09:21 | disposition home or self-care (01) ==
LOC: ED 06:48
DX: M54.9 Dorsalgia, unspecified (principal); R91.1 Solitary pulmonary nodule; E11.65 Type 2 diabetes mellitus with hyperglycemia; N20.0 Calculus of kidney; K80.20 Calculus of gallbladder without cholecystitis without obstruction; J44.9 Chronic obstructive pulmonary disease, unspecified; Z99.81 Dependence on supplemental oxygen; Z79.899 Other long term (current) drug therapy; Z79.84 Long term (current) use of oral hypoglycemic drugs; Z79.4 Long term (current) use of insulin
CPT/HCPCS: 36415; 71260; 74177; 80048; 85025; 99283; 99284; Q9967

== ENCOUNTER 2023-07-25 12:51 | Outpatient (CLI) | payer MEDICARE, OTHER ==
[~2023-07-25 12:51] MED LIST changes: -GADOBUTROL 10 MMOL/10 ML VIAL ONE; +GADOTERATE MEGLUMINE 10 MMOL/20 ML VIAL ONE
--- NOTE | 2023-07-25 16:51 | MRI Report ---
PROCEDURE: Lumbar Spine W/WO INDICATIONS: FAILED BACK SYN CONTRAST: 16.4ml Clariscan TECHNIQUE: Noncontrast sagittal T1 spin echo and T2 fast spin echo, sagittal STIR, axial T1 and T2 fast spin ech o through the lumbar spine. In cases with scoliosis, additional coronal T2 fast spin echo may be per formed. After the administration of contrast, sagittal and axial T1 spin echo with fat saturation th rough the lumbar spine. COMPARISON: MRI lumbar spine 10/06/2022. FINDINGS: Image quality: Excellent. Alignment and curvature: There is normal bony alignment. Marrow: Degenerative endplate changes at T10-T11 are partially visualized. Postsurgical changes from L2 through S1 posterior spinal fixation and discectomy. Marrow is of normal overall signal. No acut e vertebral body compression fractures. No suspicious marrow enhancement. Spinal cord: Conus medullaris terminates at the L1 level. Visualized spinal cord demonstrates dalton l signal, without suspicious enhancement. Paraspinous soft tissues: No paravertebral masses or abnormal enhancement. Fluid collection within the lower lumbar spine posterior paraspinal soft tissues is redemonstrated, consistent with a seroma. T12-L1: Normal in appearance. L1-L2: Disc desiccation and height loss. Posterior disc bulge. Superimposed left paracentral and s ubarticular disc extrusion extending inferiorly. Facet arthropathy. Epidural lipomatosis. This result s in severe central canal stenosis which is progressed compared to prior. Mild bilateral neuroforami nal stenosis. L2-L3: Postoperative changes. No central canal stenosis. Mild bilateral neuroforaminal stenosis ta ble. L3-L4: Postoperative changes. No central canal stenosis. Mild bilateral neuroforaminal stenosis sta ble. L4-L5: Postoperative changes. No central canal stenosis. Stable mild bilateral neuroforaminal steno sis. L5-S1: Postoperative changes. No central canal stenosis. Likely at least moderate bilateral neurofo raminal stenosis, evaluation is limited secondary to hardware artifact. IMPRESSION: 1.Multilevel degenerative changes of the lumbar spine status post L2-S1 postsurgical changes. 2.There is progression of degenerative changes at L1-2 with severe central canal stenosis and mild bi lateral neuroforaminal stenosis. 3.Other levels of degenerative changes are grossly unchanged compared to prior as described above. Reviewed by: Homar Greenberg MD on 07/25/2023 4:49 PM [facility] Approved by: Homar Greenberg MD on 07/25/2023 4:49 PM [facility] Station ID: [id number]
[2023-07-25] MEDS: GADOTERATE MEGLUMINE 10 MMOL/20 ML VIAL IVP ONE (18:36)
== END 2023-07-25 12:52 | disposition home or self-care (01) ==
LOC: DI 12:51
PROVIDERS: ATTEND Internal Medicine
DX: M51.26 Other intervertebral disc displacement, lumbar region (principal); M47.816 Spondylosis without myelopathy or radiculopathy, lumbar region; M51.36 Other intervertebral disc degeneration, lumbar region; M48.061 Spinal stenosis, lumbar region without neurogenic claudication
CPT/HCPCS: 72158; A9575

== ENCOUNTER 2023-08-26 20:29 | Emergency (ER) | payer MEDICARE, OTHER ==
[2023-08-26 20:58] LABS: BASOPHILS # (AUTO) 0.1 10^3/uL (0.0-0.1); BASOPHILS % (AUTO) 0.4 %; EOSINOPHILS # (AUTO) 0.4 10^3/uL (0.0-0.7); EOSINOPHILS % (AUTO) 2.8 %; HCT - HEMATOCRIT 46.5 % (37.0-47.0); HGB - HEMOGLOBIN 15.1 g/dL (12.0-16.0); LYMPHOCYTES # (AUTO) 3.3 10^3/uL (1.5-3.5); LYMPHOCYTES % (AUTO) 25.8 %; MEAN CORPUSCULAR HEMOGLOBIN 28.6 pg (27.0-31.0); MEAN CORPUSCULAR HGB CONC 32.5 g/dL (32.0-36.0); MEAN CORPUSCULAR VOLUME 88.1 fL (81.0-99.0); MEAN PLATELET VOLUME 11.1 fL (7.9-10.8); MONOCYTES # (AUTO) 0.6 10^3/uL (0.0-1.0); MONOCYTES % (AUTO) 4.5 %; NEUTROPHILS # (AUTO) 8.5 10^3/uL (1.5-6.6); NEUTROPHILS % (AUTO) 66.2 %; PLT - PLATELET COUNT 257 10^3/uL (130-450); RED BLOOD COUNT 5.28 10^6/uL (4.20-5.40); RED CELL DISTRIBUTION WIDTH 13.2 % (12.0-15.0); WHITE BLOOD COUNT 12.9 x10^3/uL (4.8-10.8)
--- NOTE | 2023-08-26 20:58 | ED Physician Documentation ---
PD HPI NVD - Stated complaint Stated Complaint: VOMITING - Chief complaint Chief Complaint: Abd Pain - History obtained from History obtained from: Patient - Additonal information Additional information: HPI from patient. Patient complains of nausea and vomiting since this morning. There was no inciting event. The nausea and vomiting has progressed in persistence and severity to the point that she no longer can keep any thing down including liquids. She also notes epigastric pain that started around the same time as the nausea and vomiting. She denies history of similar symptoms. Besides ex acerbation with attempts at p.o. intake, there were no other exacerbating factors and she has not noticed any ameliorating factors. Denies fevers. Denies past surgical history. Review of Systems Constitutional: denies: Fever, Chills, Sweats GI: reports: Abdominal Pain, Nausea, Vomiting. 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 : Kidney stones HEENT: None Psych: None Musculoskeletal: Osteoarthritis, Chronic back pain Derm: None - Past Surgical History Past Surgical History: Yes General: Other Ortho: Hip replacement, Spine surgery - Present Medications Home Medications: Ambulatory Orders Medication Instructions Recorded Confirmed Calcium Carbonate [Calcium] See Rx Instructions .ROUTE .COMPLEX 04/19/22 04/21/22 Cholecalciferol (Vitamin D3) See Rx Instructions .ROUTE .COMPLEX 04/19/22 04/21/22 [Vitamin D3] Collagen/Biotin/Ascorbic Acid See Rx Instructions .ROUTE .COMPLEX 04/19/22 04/21/22 [Collagen 1500 Plus C Capsule] Glimepiride See Rx Instructions .ROUTE .COMPLEX 04/19/22 04/21/22 Insulin Lispro Protamin/Lispro See Rx Instructions .ROUTE .COMPLEX 04/19/22 04/21/22 [Humalog Mix 50-50 Kwikpen] Ipratropium/Albuterol [Combivent See Rx Instructions .ROUTE .COMPLEX 04/19/22 04/21/22 Respimat] Loratadine [Claritin] See Rx Instructions .ROUTE .COMPLEX 04/19/22 04/21/22 Meloxicam, Submicronized See Rx Instructions .ROUTE .COMPLEX 04/19/22 04/21/22 [Meloxicam] Mirtazapine See Rx Instructions .ROUTE .COMPLEX 04/19/22 04/21/22 Multivit-Min/Iron/Folic/Lutein See Rx Instructions .ROUTE .COMPLEX 04/19/22 04/21/22 [Multivitamin Women 50 Plus Tab] Pravastatin [Pravachol] See Rx Instructions .ROUTE .COMPLEX 04/19/22 04/21/22 SITagliptin [Januvia] See Rx Instructions .ROUTE .COMPLEX 04/19/22 04/21/22 buprenorphine HCL [Buprenorphine See Rx Instructions .ROUTE .COMPLEX 04/19/22 04/21/22 HCl] estradioL [Estradiol] See Rx Instructions .ROUTE .COMPLEX 04/19/22 04/21/22 medroxyPROGESTERone [Provera] See Rx Instructions .ROUTE .COMPLEX 04/19/22 04/21/22 Ondansetron Odt [Zofran Odt] 4 mg TL Q6H PRN #14 tablet 08/26/23 - Allergies Allergies/Adverse Reactions: Allergies Allergy/AdvReac Type Severity Reaction Status Date / Time NSAIDS (Non-Steroidal Allergy Unknown Verified 08/26/23 20:40 Anti-Inflamma - Social History Does the pt smoke?: No Smoking Status: Never smoker Does the pt drink ETOH?: No Does the pt have substance abuse?: No - Immunizations Immunizations are current?: Yes - POLST Patient has POLST: No PD ED PE NORMAL - Vitals Vital signs reviewed: Yes - General General: Alert and oriented X 3, No acute distress, Well developed/nourished - HEENT HEENT: Other (tacky mucous membranes) - Cardiac Cardiac: RRR, No murmur - Respiratory Respiratory: No respiratory distress, Clear bilaterally - Abdomen Abdomen: Soft, Non distended PD ED PE EXPANDED - Abdomen Abdomen: Epigastric (mild TTP limited to epigastrium and without rebound or guarding) Results - Vitals Vitals: Vital Signs - 24 hr 08/26/23 08/26/23 08/26/23 20:34 20:39 22:12 Temperature 36.7 C 36.7 C 36.6 C Heart Rate 89 89 88 Respiratory 18 18 16 Rate Blood Pressure 189/68 H 189/68 H 148/68 H O2 Saturation 97 97 98 Oxygen O2 Source Room air - EKG (time done) No standard instances EKG releavant findings:: EKG personally interpreted by author of this note. Relevant findings are: Rate: Rate (enter#) (87) Rhythm: NSR [place]: LAD, Anterior hemiblock Intervals: Normal WA, QRS normal QRS: Normal Ischemia: Normal ST segments - Labs Labs: Laboratory Tests 08/26/23 08/26/23 08/26/23 20:50 20:50 20:50 WBC 12.9 H RBC 5.28 Hgb 15.1 Hct 46.5 MCV 88.1 MCH 28.6 MCHC 32.5 RDW 13.2 Plt Count 257 MPV 11.1 H Neut # (Auto) 8.5 H Lymph # (Auto) 3.3 [place]t # (Auto) 0.6 Eos # (Auto) 0.4 Baso # (Auto) 0.1 Absolute Nucleated RBC 0.00 Nucleated RBC % 0.0 Sodium 139 Potassium 3.8 Chloride 103 Carbon Dioxide 28 Anion Gap 8.0 BUN 18 Creatinine 0.8 Estimated GFR (MDRD) 69 L Glucose 227 H Calcium 10.1 Total Bilirubin 0.7 AST 26 ALT 23 Alkaline Phosphatase 65 Total Protein 7.2 Albumin 4.5 Globulin 2.7 Albumin/Globulin Ratio 1.7 Lipase 13 PD Medical Decision Making - ED course Complexity details: reviewed results, re-evaluated patient, considered differential, d/w patient ED course: No concerning or diagnostic findings on blood work (mild leukocytosis on CBC with WBC 12.9, mild hyperglycemia with glucose 227). Lipase is normal (13), and the liver function tests are all normal, as well. On reevaluation, after 4 mg IV Zofran and 1 L normal saline IV, the patient is in NAD, resting comfortably, and reports feeling much better with resolution of the nausea. She passes a p.o. fluid challenge. The cause of her symptoms is not apparent at this time. Gastritis is increasingly suspected given lack of findings on CMP/lipase to suggest alternative diagnosis and improvement with zofran and IV fluids, as well as epigastric location of discomfort. Return precautions are discussed. I have electronically submitted a prescription for ondansetron to patient's pharmacy of choice. Given take-home pack of ondansetron. Departure - Departure Disposition: 01 Home, Self Care Clinical Impression: Nausea & vomiting Qualifiers: Vomiting type: unspecified Qualified Code(s): R11.2 - Nausea with vomiting, unspecified Condition: Good Instructions: ED Nausea Vomiting Prescriptions: Ondansetron Odt [Zofran Odt] 4 mg TL Q6H PRN #14 tablet PRN Reason: Nausea / Vomiting Forms: Activity restrictions Discharge Date/Time: 08/26/23 22:12
[2023-08-26] MEDS: ONDANSETRON 4 MG/2 ML VIAL IVP STA (21:13)
[2023-08-26 21:16] LABS: ALBUMIN 4.5 g/dL (3.2-5.5); ALBUMIN/GLOBULIN RATIO 1.7 (1.0-2.2); BILIRUBIN,TOTAL 0.7 mg/dL (0.2-1.0); CALCIUM 10.1 mg/dL (8.5-10.3); CREATININE 0.8 mg/dL (0.6-1.3); POTASSIUM 3.8 mmol/L (3.5-4.5); TOTAL PROTEIN 7.2 g/dL (6.4-8.9)
[2023-08-26] MEDS: SODIUM CHLORIDE 0.9% 1,000 ML IV STA (21:17)
[2023-08-26] MEDS: ONDANSETRON ODT 4 MG Prepack 2 TL PRN (22:09)
[2023-08-26 22:23] VITALS: BP 148/68; O2SAT 98
== END 2023-08-26 22:12 | disposition home or self-care (01) ==
LOC: ED 20:29
DX: R11.2 Nausea with vomiting, unspecified (principal); R10.13 Epigastric pain; E11.9 Type 2 diabetes mellitus without complications; Z79.4 Long term (current) use of insulin
CPT/HCPCS: 36415; 80053; 83690; 85025; 93005; 96374; 99284

== ENCOUNTER 2023-09-15 10:26 | Outpatient (CLI) | payer MEDICARE, OTHER ==
[2023-09-15 10:55] LABS: ALBUMIN/GLOBULIN RATIO 1.4 (1.0-2.2); BILIRUBIN,TOTAL 0.7 mg/dL (0.2-1.0); CALCIUM 9.9 mg/dL (8.5-10.3); CREATININE 0.7 mg/dL (0.6-1.3); POTASSIUM 3.8 mmol/L (3.5-4.5); TOTAL PROTEIN 6.8 g/dL (6.4-8.9)
[2023-09-15 12:07] LABS: ESTIMATED AVERAGE GLUCOSE 229 mg/dL (70-100); HEMOGLOBIN A1c% 9.6 % (4.27-6.07)
== END 2023-09-15 10:27 | disposition home or self-care (01) ==
LOC: LAB 10:26
PROVIDERS: ATTEND Internal Medicine
DX: E11.40 Type 2 diabetes mellitus with diabetic neuropathy, unspecified (principal)
CPT/HCPCS: 36415; 80053; 83036

== ENCOUNTER 2023-09-30 02:32 | Outpatient (CLI) | payer MEDICARE, OTHER | END 2023-09-30 23:59 | disposition critical access hospital (66) | LOC: EMS 02:32 | DX: M25.551 Pain in right hip (principal) | CPT/HCPCS: A0425; A0429 ==

== ENCOUNTER 2023-09-30 02:42 | Emergency (ER) | payer MEDICARE, OTHER ==
--- NOTE | 2023-09-30 02:51 | ED Physician Documentation ---
History of Present Illness - Stated complaint Stated Complaint: R HIP PX - History obtained from History obtained from: Patient, EMS - Additonal information Additional information: 78y with pmh hip replacement, multiple back surgeries p/w sudden pain tonight after rolling over in bed, sharp, 3/10 at rest, 8/10 with walking/movement. 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 : Kidney stones HEENT: None Psych: None Musculoskeletal: Osteoarthritis, Chronic back pain Derm: None - Past Surgical History Past Surgical History: Yes General: Other Ortho: Hip replacement, Spine surgery - Present Medications Home Medications: Ambulatory Orders Medication Instructions Recorded Confirmed Calcium Carbonate [Calcium] See Rx Instructions .ROUTE .COMPLEX 04/19/22 04/21/22 Cholecalciferol (Vitamin D3) See Rx Instructions .ROUTE .COMPLEX 04/19/22 04/21/22 [Vitamin D3] Collagen/Biotin/Ascorbic Acid See Rx Instructions .ROUTE .COMPLEX 04/19/22 04/21/22 [Collagen 1500 Plus C Capsule] Glimepiride See Rx Instructions .ROUTE .COMPLEX 04/19/22 04/21/22 Insulin Lispro Protamin/Lispro See Rx Instructions .ROUTE .COMPLEX 04/19/22 04/21/22 [Humalog Mix 50-50 Kwikpen] Ipratropium/Albuterol [Combivent See Rx Instructions .ROUTE .COMPLEX 04/19/22 04/21/22 Respimat] Loratadine [Claritin] See Rx Instructions .ROUTE .COMPLEX 04/19/22 04/21/22 Meloxicam, Submicronized See Rx Instructions .ROUTE .COMPLEX 04/19/22 04/21/22 [Meloxicam] Mirtazapine See Rx Instructions .ROUTE .COMPLEX 04/19/22 04/21/22 Multivit-Min/Iron/Folic/Lutein See Rx Instructions .ROUTE .COMPLEX 04/19/22 04/21/22 [Multivitamin Women 50 Plus Tab] Pravastatin [Pravachol] See Rx Instructions .ROUTE .COMPLEX 04/19/22 04/21/22 SITagliptin [Januvia] See Rx Instructions .ROUTE .COMPLEX 04/19/22 04/21/22 buprenorphine HCL [Buprenorphine See Rx Instructions .ROUTE .COMPLEX 04/19/22 04/21/22 HCl] estradioL [Estradiol] See Rx Instructions .ROUTE .COMPLEX 04/19/22 04/21/22 medroxyPROGESTERone [Provera] See Rx Instructions .ROUTE .COMPLEX 04/19/22 04/21/22 Ondansetron Odt [Zofran Odt] 4 mg TL Q6H PRN #14 tablet 08/26/23 - Allergies Allergies/Adverse Reactions: Allergies Allergy/AdvReac Type Severity Reaction Status Date / Time NSAIDS (Non-Steroidal Allergy Unknown Verified 08/26/23 20:40 Anti-Inflamma - Social History Does the pt smoke?: No Smoking Status: Never smoker Does the pt drink ETOH?: No Does the pt have substance abuse?: No - Immunizations Immunizations are current?: Yes - POLST Patient has POLST: No PD ED PE NORMAL - Vitals Vital signs reviewed: Yes - General General: Alert and oriented X 3, No acute distress, Well developed/nourished - HEENT HEENT: Atraumatic, PERRL, EOMI - Derm Derm: Normal color, Warm and dry - Extremities Extremities: No deformity, No tenderness to palpate, Normal ROM s pain (discomfort with rom of R hip. nontender with rom R knee and ankle), Other (csm intact RLE) Results - Vitals Vitals: Oxygen O2 Source Room air PD Medical Decision Making - ED course ED course: 78yF p/w R hip pain tonight after rolling in bed, without acute injury. appears to be a muscle spasm. xrays noncontributory. pain improved with IM dilaudid and PO flexeril and tylenol. plan to f/u with her orthopedist. return precautions given. Departure - Departure Clinical Impression: Hip pain, right Condition: Stable Instructions: Exercise Lower Body Hip Flexor Comments: You were seen in the emergency department for hip pain. Your xrays showed no break or dislocation. This is likely a muscle spasm. Please follow-up with your orthopedist and return to the emergency department if you have any new or worsening symptoms or other concerns.
[2023-09-30] MEDS: HYDROmorphone 1 MG/ML CARPUJECT IM STA (02:57)
[2023-09-30] MEDS: CYCLOBENZAPRINE 10 MG TABLET PO STA (02:57)
[2023-09-30] MEDS: ACETAMINOPHEN 325 MG TABLET PO STA (02:57)
[2023-09-30] MEDS: oxyCODONE/ACET 5/325 Prepack 4 PO STA (03:38)
[2023-09-30 03:50] VITALS: BP 136/60; O2SAT 98
--- NOTE | 2023-09-30 08:24 | XRAY Report ---
PROCEDURE: Hip w/Pelvis 2-3V RT INDICATIONS: pain R hip TECHNIQUE: 3 views of the hip were acquired. COMPARISON: None. FINDINGS: Bones: No fractures or dislocations. No suspicious bony lesions. Well-aligned arthroplasty withou t hardware complication. Surgical fusion of the lumbosacral spine. Soft tissues: No suspicious soft tissue calcifications or masses. IMPRESSION: Well-aligned right total hip arthroplasty without hardware complication. Findings are concordant with preliminary interpretation provided by [facility]. Reviewed by: Robert Heredia MD on 09/30/2023 8:22 AM PDT Approved by: Robert Heredia MD on 09/30/2023 8:22 AM PDT Station ID: [id number]
== END 2023-09-30 04:00 | disposition home or self-care (01) ==
LOC: EDUNIT# → ED 02:42
DX: M25.551 Pain in right hip (principal); X58.XXXA Exposure to other specified factors, initial encounter; Y93.89 Activity, other specified; Y92.003 Bedroom of unspecified non-institutional (private) residence as the place of occurrence of the external cause
CPT/HCPCS: 73502; 96372; 99284; A9270; J1170

== ENCOUNTER 2023-10-03 15:51 | Outpatient (CLI) | payer MEDICARE, OTHER ==
--- NOTE | 2023-10-03 16:54 | MRI Report ---
PROCEDURE: Thoracic Spine WO INDICATIONS: THORACIC DDD, T10-11 CORD COMPRESSION TECHNIQUE: Noncontrast sagittal T1 spine echo and T2 fast spin echo, sagittal STIR, axial T1 and T2 fast spin ec ho through the thoracic spine. COMPARISON: MRI thoracic spine 10/06/2022. FINDINGS: Image quality: Excellent. Alignment and Curvature: Minimal anterolisthesis of T2 on T3 and T3 and T4.. Bone Marrow: Multilevel degenerative endplate changes are present, most pronounced at T10-T11. Marro w is otherwise of normal overall signal. No acute vertebral body compression fractures. Spinal Cord: Visualized spinal cord is normal in size and signal. Paraspinous Soft Tissues: No paravertebral masses. Miscellaneous: Multilevel disc desiccation and height loss with posterior disc bulges. This is most p ronounced from T5-T6 through T10-T11. Multilevel facet arthropathy. Stable multilevel mild central ca nal stenosis. Moderate central canal stenosis at T10-T11 is similar to prior. Moderate bilateral neur oforaminal stenosis at T10-11 is redemonstrated. Moderate neuroforaminal stenosis on the left at T7-T 8 is similar to prior. Otherwise, no significant neuroforaminal stenosis. IMPRESSION: Overall, similar appearance of multilevel degenerative changes of the thoracic spine, most pronounced at T10-T11 with moderate central canal stenosis and moderate bilateral neuroforaminal stenosis. Reviewed by: Homar Greenberg MD on 10/03/2023 4:43 PM PDT Approved by: Homar Greenberg MD on 10/03/2023 4:43 PM PDT Station ID: [id number]
== END 2023-10-03 15:52 | disposition home or self-care (01) ==
LOC: DI 15:51
DX: M51.34 Other intervertebral disc degeneration, thoracic region (principal); M48.04 Spinal stenosis, thoracic region; M47.814 Spondylosis without myelopathy or radiculopathy, thoracic region

== ENCOUNTER 2023-12-21 09:14 | Outpatient (CLI) | payer MEDICARE, OTHER ==
[2023-12-21 09:43] LABS: ALBUMIN 4.4 g/dL (3.2-5.5); ALBUMIN/GLOBULIN RATIO 1.6 (1.0-2.2); ALKALINE PHOSPHATASE 62 IU/L (42-121); ALT ALANINE AMINOTRANSFERASE 18 IU/L (10-60); AST ASPARTATE AMINOTRANSFERASE 24 IU/L (10-42); BILIRUBIN,TOTAL 0.8 mg/dL (0.2-1.0); BUN - BLOOD UREA NITROGEN 15 mg/dL (6-20); CALCIUM 9.9 mg/dL (8.5-10.3); CARBON DIOXIDE - CO2 31 mmol/L (21-32); CHLORIDE 106 mmol/L (101-111); CHOLESTEROL 122 mg/dL; CREATININE 0.7 mg/dL (0.6-1.3); GFR - MDRD 81 (>89); GLUCOSE 135 mg/dL (74-104); HDL CHOLESTEROL 41 mg/dL; LDL CHOLESTEROL,CALCULATED 58 mg/dL; LDL/HDL RATIO 1.4 (<4.4); SODIUM 141 mmol/L (135-145); TOTAL PROTEIN 7.2 g/dL (6.4-8.9); TRIGLYCERIDES 114 mg/dL; VLDL CHOLESTEROL 23 mg/dL
[2023-12-21 09:59] LABS: THYROID STIMULATING HORMONE 3.47 uIU/mL (0.34-5.60)
[2023-12-21 10:18] LABS: ESTIMATED AVERAGE GLUCOSE 171 mg/dL (70-100); HEMOGLOBIN A1c% 7.6 % (4.27-6.07)
== END 2023-12-21 09:15 | disposition home or self-care (01) ==
LOC: LAB 09:14
PROVIDERS: ATTEND Internal Medicine
DX: E11.42 Type 2 diabetes mellitus with diabetic polyneuropathy (principal); K59.03 Drug induced constipation; F41.8 Other specified anxiety disorders
CPT/HCPCS: 36415; 80053; 80061; 83036; 83721; 84443